=== PATIENT | female | born 1940 | race Caucasian/White ===

== ENCOUNTER 2021-10-01 18:54 | Emergency (ER) | payer SELFPAY ==
[2021-10-01 19:05] VITALS: BP 111/76; PULSE 88; RESP 20; TEMP 36.7; O2SAT 97
--- NOTE | 2021-10-01 19:23 | ED.WOUNDLAC ---
HPI - Wound/Laceration General Chief Complaint: Wound/Laceration Stated Complaint: R hand injury Time Seen by Provider: 10/01/21 19:20 Source: patient, family and RN notes reviewed History of Present Illness HPI narrative: Patient is an 80-year-old female who presents the urgent care with her son with complaints of a laceration to the right hand. Patient's son states that she lives at [facility] due to a stroke in the past and is weak on the right side. Patient tripped and fell in the shower yesterday while being assisted with her caregiver and lacerated the top of her right hand. Patient states she did hit the right side of her head and they evaluated her every 15 minutes with vitals and she was not taken to the emergency room. Son and patient both deny any changes in mental status. Patient denies of any loss of consciousness. Patient is on blood thinners. Patient son states that they have been wrapping the hand and every time they rewrap it it continues to bleed. No other acute complaints or injuries. No acute distress noted. Patient and son aware of the plan of care. Some parts of this dictation were generated by voice recognition software and may contain typographical and/or grammatical inaccuracies. Related Data Home Medications Medication Instructions Recorded Confirmed acetaminophen 325 mg PO ONCE PRN 10/01/21 10/01/21 aspirin [Adult Aspirin EC Low 81 mg PO DAILY 10/01/21 10/01/21 Strength] atorvastatin 10/01/21 atorvastatin 10/01/21 10/01/21 baclofen 10 mg PO QID 10/01/21 10/01/21 cholecalciferol (vitamin D3) 50 mcg PO DAILY 10/01/21 10/01/21 [Vitamin D3] clopidogrel 10/01/21 duloxetine 20 mg PO BID 10/01/21 10/01/21 lisinopril 10 mg PO DAILY 10/01/21 10/01/21 mirtazapine 15 mg PO DAILY 10/01/21 10/01/21 hcjapdje-blh-lcuu-FA-lutein 1 tablet PO DAILY 10/01/21 10/01/21 [Centrum Silver Women] oxybutynin chloride 5 mg PO BID 10/01/21 10/01/21 polyethylene glycol 3350 10/01/21 sodium chloride 1,000 mg PO DAILY 10/01/21 10/01/21 tramadol 50 mg PO Q6H PRN 10/01/21 10/01/21 Allergies Allergy/AdvReac Type Severity Reaction Status Date / Time codeine Allergy Other Verified 10/01/21 19:06 Sulfa (Sulfonamide Allergy Other Verified 10/01/21 19:06 Antibiotics) Review of Systems Review of Systems: CONSTITUTIONAL: Denies fever, chills, or sweats. EYES: Denies visual changes, redness, or discharge. ENT: Denies rhinorrhea, congestion, sore throat, or otalgia. CARDIOVASCULAR: Denies chest pain, palpitations, or edema. RESPIRATORY: Denies cough or dyspnea. GASTROINTESTINAL: Denies abdominal pain, nausea, vomiting, or diarrhea. GENITOURINARY: Denies dysuria or hematuria. SKIN: Reports of a right hand laceration MUSCULOSKELETAL: Denies back pain, joint pain, or myalgia. NEUROLOGIC: Denies headache, numbness, or weakness. All other systems reviewed are negative, except as documented in HPI. PMFSH Comments At the time of my signature, I reviewed and agree with the nursing past medical, surgical, social, and family history. There is no relevant family history pertinent to the patient complaint. Exam Narrative: GENERAL: This is a well-nourished, well-developed patient, in no apparent distress. HEAD: normocephalic, atraumatic. EYES: PERRL. Sclera clear/white. Vision is grossly intact. EARS: External ears normal NOSE: External nose normal with no obvious nasal discharge, nares without redness, no rhinorrhea. THROAT: Mucous membranes moist NECK: Neck supple, SKIN: 4 cm linear superficial skin tear to the dorsal aspect of the right hand with mild bloody drainage NEURO: awake, alert, and oriented to person, place and time. There were no obvious focal neurologic abnormalities. EXTREMITIES: Very limited range of motion to right upper extremity due to history of stroke. Contracted right hand. Positive strong right radial pulse. Course Course Level of Care: Express Care Visit Vital Signs Vital signs: Vit
== END 2021-10-01 19:33 | disposition home or self-care (01) ==
PROVIDERS: Emergency Provider Nurse Practitioner Family
DX: S61.411A Laceration without foreign body of right hand, initial encounter (principal); W01.0XXA Fall on same level from slipping, tripping and stumbling without subsequent striking against object, initial encounter; E78.00 Pure hypercholesterolemia, unspecified; I10 Essential (primary) hypertension; M19.90 Unspecified osteoarthritis, unspecified site; M41.9 Scoliosis, unspecified; F32.A Depression, unspecified; I69.320 Aphasia following cerebral infarction; I69.390 Apraxia following cerebral infarction; I69.391 Dysphagia following cerebral infarction; I69.351 Hemiplegia and hemiparesis following cerebral infarction affecting right dominant side; R13.10 Dysphagia, unspecified
CPT/HCPCS: 99212; G0463

== ENCOUNTER 2022-11-26 06:29 | Inpatient (IN) | payer MEDICARE, SELFPAY ==
[2022-11-26] VITALS (44 sets, daily range): BP systolic 64–147; BP diastolic 34–95; PULSE 64–116; RESP 13–28; TEMP 33.9–37.9; O2SAT 83–100; BMI 23.8
--- NOTE | ~2022-11-26 | XR_ITS ---
XR abdomen NG/feed tube insert 11/26/2022 15:32 Indication: NG tube insertion Procedure: Limited AP chest/abdomen Comparison: 11/26/2022 Findings: NG tube is coiled in the large hiatal hernia above the diaphragm. Bowel gas pattern nonobst ructive. Lungs clear. Impression: 1: NG tube coiled in large hiatal hernia above the diaphragm. Reviewed, dictated and finalized at location [] Impression: 1: NG tube coiled in large hiatal hernia above the diaphragm.
--- NOTE | ~2022-11-26 | XR_ITS ---
XR abdomen NG/feed tube insert INDICATION: Evaluate NG tube position. TECHNIQUE: Limited KUB perform for evaluating NG tube . COMPARISON: No prior studies for comparison. FINDINGS: NG tube tip in the stomach. Large hiatal hernia. Visualized bowel gas pattern is unremarkab le.There is severe spondylosis visualized thoracic and lumbar spine. IMPRESSION: 1: NG tube tip in the stomach. Reviewed, dictated and finalized at location []
--- NOTE | ~2022-11-26 | CT_ITS ---
EXAMINATION: CT abdomen pelvis w con DATE: 11/26/2022 08:34 INDICATION: Rectal bleeding TECHNIQUE: Computed tomography (CT) of the abdomen and pelvis was performed with 100 cc Omnipaque 350 intravenous contrast. The dose-length product was 554.88 mGy-cm. Automated exposure control and iter ative reconstruction technique were employed. COMPARISON: None. FINDINGS: There is dependent atelectasis. Cardiomegaly. Large hiatal hernia. NG tube in the stomach. There is atherosclerosis of the aorta without aneurysm. There is a rectal catheter. There is abnormal thickening of the sigmoid colon. No obstruction. Fatty infiltration of the liver. Gallbladder is present. The spleen, pancreas, adrenal glands are unr emarkable. There are bilateral renal cysts, largest on the right measuring 4.6 cm. Gallbladder is pre sent. No free air or free fluid. There is osteoarthritis of the hips, sacroiliac joints spine. There is scoliosis. There is atherosclerosis of the aorta without aneurysm. No lymphadenopathy. IMPRESSION: 1. Mild thickening of the sigmoid colon, suspicious for infectious or inflammatory colitis. 2: Large hiatal hernia. Reviewed, dictated and finalized at location [] IMPRESSION: 1. Mild thickening of the sigmoid colon, suspicious for infectious or inflammat ory colitis. 2: Large hiatal hernia.
--- NOTE | 2022-11-26 06:36 | ECG_ITS ---
Measurements Intervals [place] Rate: 104 P: 23 NM: 143 QRS: 140 QRSD: 121 T: -7 QT: 349 QTc: 461 Interpretive Statements SINUS TACHYCARDIA RIGHT AXIS DEVIATION [QRS AXIS > 100] RIGHT BUNDLE BRANCH BLOCK [120+ ms QRS DURATION, UPRIGHT V1, 40+ ms S IN I/aVL/V4/V5/V6] NO PREVIOUS ECG AVAILABLE FOR COMPARISON Electronically Signed On 11-26-2022 13:27:50 CDT by Abdi Cerda M.D.
[2022-11-26 07:00] LABS: Basophils Absolute Auto 0.1 K/mm3 (0.0-0.1); Basophils Percent Auto 0.7 % (0.2-1.2); Eosinophils Absolute Auto 0.3 K/mm3 (0-0.3); Eosinophils Percent Auto 2.4 % (0-4.4); Hematocrit 30.4 % (37.0-47.0); Immature Granulocyte Absolute 0.12 K/mm3 (0.00-0.031); Lymphocytes Absolute Auto 2.68 K/mm3 (0.9-3.2); Lymphocytes Percent Auto 23.2 % (18.3-44.2); Mean Corpuscular HGB Conc 32.9 g/dl (32-36); Mean Corpuscular Hemoglobin 30.9 pg (26-34); Mean Corpuscular Volume 93.8 fl (80-100); Mean Platelet Volume 9.3 fl (7.4-10.4); Monocytes Absolute Auto 0.8 K/mm3 (0.1-0.6); Neutrophils Absolute Auto 7.6 K/mm3 (1.3-6.7); Neutrophils Percent Auto 65.7 % (45.5-73.1); Platelet Count Result 274 k/mm3 (150-375); Red Blood Count 3.24 M/mm3 (4.2-5.4); Red Cell Distribution Width 13.4 % (11.5-14.5); White Blood Count 11.5 K/mm3 (4.5-10.0)
--- NOTE | 2022-11-26 07:08 | ED.GENADULT ---
HPI - General Adult General Chief complaint: Weakness Stated complaint: GI bleed Time Seen by Provider: 11/26/22 06:57 History of Present Illness HPI narrative: 82-year-old female presented to the emergency department for evaluation for dark red blood per rectum. Patient is on Plavix. Patient has no prior history of GI bleed. Patient does have a prior history of CVA with right-sided deficit and patient is aphasic at her baseline. Patient is able to answer yes and no to questions. Patient denies any prior history of GI bleed. Patient denies any prior history of alcohol abuse. Patient states that she does have some associate abdominal pain. Related Data Home Medications Medication Instructions Recorded Confirmed acetaminophen 325 mg tablet 650 mg PO ONCE PRN Pain 10/01/21 11/26/22 aspirin 81 mg tablet,delayed 81 mg PO DAILY 10/01/21 11/26/22 release atorvastatin 20 mg tablet 20 mg PO DAILY 10/01/21 11/26/22 clopidogrel 75 mg tablet 75 mg PO DAILY 10/01/21 11/26/22 duloxetine 20 mg capsule,delayed 20 mg PO BID 10/01/21 11/26/22 release lisinopril 10 mg tablet 10 mg PO DAILY 10/01/21 11/26/22 mirtazapine 15 mg tablet 15 mg PO DAILY 10/01/21 11/26/22 multivit with 1 tablet PO DAILY 10/01/21 11/26/22 qchmkdfv-xust-FL-lutein 8 mg iron-400 mcg-300 mcg tablet (Centrum Silver Women) oxybutynin chloride 5 mg tablet 5 mg PO BID 10/01/21 11/26/22 sodium chloride 1 gram tablet 1,000 mg PO BID 10/01/21 11/26/22 cholecalciferol (vitamin D3) 50 50 mcg PO DAILY 11/26/22 11/26/22 mcg (2,000 unit) capsule epinephrine 0.3 mg/0.3 mL 0.3 mg IM ONCE 11/26/22 11/26/22 injection, auto-injector Allergies Allergy/AdvReac Type Severity Reaction Status Date / Time codeine Allergy Other Verified 11/26/22 07:35 Sulfa (Sulfonamide Allergy Other Verified 11/26/22 07:35 Antibiotics) Review of Systems Review of Systems: ROS unobtainable: Yes unobtainable due to medical condition PMFSH Past Medical History Medical History (Updated 11/26/22 @ 12:45 by Varun Pastrana MD) GI bleed History of CVA (cerebrovascular accident) HTN (hypertension) Hyperlipidemia Osteoarthritis Social History Social History Smoking status: Unknown if ever smoked Alcohol intake: unknown Substance use: never Substance use type: does not use Lack of Transportation: No Lack of Food: Never True Current Housing: I Have Housing Concerned About Future Housing: No Difficulty Paying Gas/Electric Bills: No Difficulty Paying for Meds: No Currently Unemployed: No Education: Don't Know Difficulty w/ Childcare or Family Care: No Spiritual care concerns: No Exam Narrative: APPEARANCE: Well appearing, no pain, no distress, well-nourished. HEAD: normocephalic, atraumatic. EYES: PERRLA/EOMI, conjunctivae clear. NOSE: Normal no drainage NECK: Supple. No adenopathy, no masses. RESPIRATORY: Airway patent, respirations nonlabored. Clear to auscultation bilaterally, no rales, rhonchi, wheezing. CARDIOVASCULAR: Regular rate and rhythm without murmurs rubs or gallops. ABDOMINAL: Soft, nontender, nondistended, normal bowel sounds Rectal: Dark red blood per rectum. MUSCULOSKELETAL: Moves all extremities. Strength/ROM intact, No edema, No calf tenderness. NEURO: Alert. Cranial nerves II through XII intact. Right-sided deficit, aphasic-at her baseline. SKIN: Warm, dry. Normal Color Course Course Emergency Course: 82-year-old female presented the ED for evaluation of rectal bleeding that started last night. Patient's hemoglobin is 10.0. No prior hemoglobin is on file. Due to the amount of bleeding and hypotension on scene patient was treated with 2 unit of packed red blood cells to start. Patient was also started on Protonix. Case was discussed with GI and a gastric lavage was ordered. Patient did have some blood in the NG tube. GI requested gastric lavage to continue up to clear the clot burden. Case was discussed
[2022-11-26 07:10] LABS: Alanine Aminotransferase 49 U/L (6-35); Albumin Level 3.3 g/dL (3.5-5.1); Alkaline Phosphatase 149 U/L (38-126); Anion Gap 9 mmol/L (8-16); Aspartate Amino Transferase 53 U/L (14-36); Bilirubin,Total 0.4 mg/dL (0.2-1.3); Blood Urea Nitrogen 49 mg/dL (7-17); Calcium 8.4 mg/dL (8.4-10.2); Carbon Dioxide 18 mmol/L (22-30); Chloride 109 mmol/L (98-107); Estimated CRCL calculation 38 ml/min; Estimated Glomerular Filt Rate 53; Glucose 185 mg/dL (65-110); Potassium 5.4 mmol/L (3.4-5.0); Sodium 136 mmol/L (137-145)
[2022-11-26] MEDS: SODIUM CHLORIDE 0.9% IV 1,000 ML 999 ML IV CONT (07:12)
[2022-11-26] MEDS: PANTOPRAZOLE SODIUM IV 40 MG VIAL IV PUSH (07:19)
[2022-11-26] MEDS: PANTOPRAZOLE SODIUM IV 80 MG in SODIUM CHLORIDE 0.9% IV 500 ML 50 MG IV CONT ×2 (07:30→17:29)
[2022-11-26 07:31] LABS: INR 1.2
[2022-11-26 07:32] LABS: Partial Thromboplastin Time 26.7 SECONDS (22.3-36.8)
[2022-11-26] MEDS: SODIUM CHLORIDE 0.9% IV 250 ML 30 ML IV CONT (08:00)
[2022-11-26 08:04] LABS: Iron 121 ug/dL (37-170)
[2022-11-26 08:14] LABS: Percent Iron Saturation 40 % (20-50)
--- NOTE | 2022-11-26 08:34 | PC.NURSE ---
return from ct. 1st unit of blood issued. icu bed received.
--- NOTE | 2022-11-26 09:53 | ADMGEN ---
This patient, Dana Francois, was admitted to Intensive Care Unit-5 at 0940. Patient/family oriented to hospital policies and general routines including ID bracelet, bed and alarms, visiting hours, pain management, procedures, bathroom and other care routines, personal items, smoking policy, room service/diet, and visiting hours. Information on how to activate the Rapid Response Team has been discussed. Patient/Family are encouraged to report perceived risks to care and to ask questions if they do not understand what they are told or what they should do.
--- NOTE | 2022-11-26 12:21 | WPDGICN ---
Assessment and Plan Assessment and plan (1) GI bleed: Code(s): K92.2 - Gastrointestinal hemorrhage, unspecified Status: Acute Assessment and Plan: Patient admitted to the hospital with upper GI bleeding. Manifested by dark reddish stools confirmed by NG tube lavage. Plan for cleansing of the stomach by NG tube lavage. An EGD will be performed when stable. Hemoglobin will be monitored and transfused if necessary. Place will be patient will be placed on intravenous Protonix. Further recommendations will be given after endoscopy. (2) History of CVA (cerebrovascular accident): Code(s): Z86.73 - Personal history of transient ischemic attack (TIA), and cerebral infarction without residual deficits Status: Acute Assessment and Plan: Hold anticoagulation given her GI blood loss. GI Consult Note Consult date/time: 11/26/22 12:21 Reason for consult: Upper GI bleed HPI: Dana Francois is a 82 year old female I am asked to see at the request of the emergency room because of GI bleeding. Patient currently resident of [facility]. Patient has a history of a CVA. Patient is aphasic. She has right-sided weakness from her CVA. Apparently in her normal health began to pass dark red stool today. She present to the emergency room was noted to have a soft blood pressure. NG tube placed in the ER revealed that she had a bloody return. Patient's hemoglobin was 10 when evaluated. Her blood pressure is improved with IV fluid rehydration and blood transfusion. No prior history of GI bleeding is available are known. NG tube lavage has turned brownish coffee-ground in nature over the last several hours. Family history noncontributory. Review of Systems Review of Systems: Review of systems noncontributory. [facility] Social History Social History Smoking status: Unknown if ever smoked Alcohol intake: unknown Substance use: never Substance use type: does not use Lack of Transportation: No Lack of Food: Never True Current Housing: I Have Housing Concerned About Future Housing: No Difficulty Paying Gas/Electric Bills: No Difficulty Paying for Meds: No Currently Unemployed: No Education: Don't Know Difficulty w/ Childcare or Family Care: No Spiritual care concerns: No Meds Home Medications and Allergies Home Medications Medication Instructions Recorded Confirmed Type acetaminophen 325 mg tablet 650 mg PO ONCE PRN Pain 10/01/21 11/26/22 History aspirin 81 mg tablet,delayed 81 mg PO DAILY 10/01/21 11/26/22 History release atorvastatin 20 mg tablet 20 mg PO DAILY 10/01/21 11/26/22 History clopidogrel 75 mg tablet 75 mg PO DAILY 10/01/21 11/26/22 History duloxetine 20 mg capsule,delayed 20 mg PO BID 10/01/21 11/26/22 History release lisinopril 10 mg tablet 10 mg PO DAILY 10/01/21 11/26/22 History mirtazapine 15 mg tablet 15 mg PO DAILY 10/01/21 11/26/22 History multivit with 1 tablet PO DAILY 10/01/21 11/26/22 History etunyzlh-uiwz-ZN-lutein 8 mg iron-400 mcg-300 mcg tablet (Centrum Silver Women) oxybutynin chloride 5 mg tablet 5 mg PO BID 10/01/21 11/26/22 History sodium chloride 1 gram tablet 1,000 mg PO BID 10/01/21 11/26/22 History cholecalciferol (vitamin D3) 50 50 mcg PO DAILY 11/26/22 11/26/22 History mcg (2,000 unit) capsule epinephrine 0.3 mg/0.3 mL 0.3 mg IM ONCE 11/26/22 11/26/22 History injection, auto-injector Allergies Allergy/AdvReac Type Severity Reaction Status Date / Time codeine Allergy Other Verified 11/26/22 07:35 Sulfa (Sulfonamide Allergy Other Verified 11/26/22 07:35 Antibiotics) Vital Signs Vital Signs - 24 hr 11/26/22 06:29 11/26/22 07:16 11/26/22 06:40 Temperature 97.7 F Pulse Rate 110 H 94 111 H Respiratory Rate 24 H 27 H Blood Pressure 106/82 Pulse Oximetry 100 Oxygen Delivery Room Air 11/26/22 06:45 11/26/22 07:00 11/26/22 07:12 Temperature Pulse Rate 97 87
--- NOTE | 2022-11-26 12:30 | PM.IMHP ---
H&P: HPI History of Present Illness Date/Time: 11/26/22 12:30 Chief Complaint: Weakness Narrative: This is an 82-year-old female patient who resides at [facility]. The patient came to the emergency room to be evaluated for dark red blood from the rectum. The patient is on Plavix and she has had a CVA. She has had no prior history of having a GI bleed. The patient has a history of CVA with right side effect. Patient has expressive aphasia but can answer questions recheck her her head yes or no. The patient had an NG-tube placed in the emergency room and a lavage was started. GI was consulted. The patient was given a blood transfusion in the emergency room. White count was 11.5. HGB is 10.0 in 30.4. Potassium 5.4 sodium 136 BUN 49. Glucose 185. A sees 53 ALT is 49 alkaline phosphatase 149. Abdominal pelvis CT was read as the followingMild thickening of the sigmoid colon, suspicious for infectious or inflammatory colitis. 2:? Large hiatal hernia. Protonix drip was started. She was given IV fluids. An EGD was performed. No active bleeding was found. The patient is being admitted to inpatient status on the date of service of 11/26/2022. Review of Systems Review of Systems: All systems reviewed & are unremarkable except as noted in HPI and below Constitutional: Constitutional: Reports as per HPI and Reports no additional constitutional complaints Eyes: Eyes: Reports as per HPI and Reports no additional eye complaints ENT: Reports system reviewed and no additional complaints, except as documented and Reports Normal hearing present Cardiovascular: Cardiovascular: Reports no additional cardiovascular complaints Respiratory: Respiratory: Reports no additional respiratory complaints and Reports no additional respiratory complaints Gastrointestinal: Gastrointestinal: Reports as per HPI and Reports no additional gastrointestinal complaints Musculoskeletal: Musculoskeletal: Reports no additional musculoskeletal complaints Integumentary/Breasts: Skin/Breast: Reports system reviewed and no additional complaints, except as docu and Reports as per HPI Neurologic: Reports system reviewed and no additional complaints, except as documented, Reports as per HPI and Reports Normal hearing present Psychiatric: Psychiatric: Reports no additional psychiatric complaints and Reports as per HPI Endocrine: Endocrine: Reports no additional endocrine complaints Hematologic/Lymphatic: Hematologic/Lymphatic: Reports no additional hematologic/lymphatic complaints Allergic/Immunologic: Allergic/Immunologic: Reports no additional allergic/immunologic complaints [facility] Past Medical History Medical History (Updated 11/26/22 @ 15:10 by Olivia Barnes NP) Carotid artery disease Chronic anemia Depression Expressive aphasia GI bleed History of CVA (cerebrovascular accident) Right side effect HTN (hypertension) Hyperlipidemia Osteoarthritis Surgical History Surgical History (Updated 11/26/22 @ 15:10 by Olivia Barnes NP) H/O cataract extraction H/O: hysterectomy Family History Family History (Updated 11/26/22 @ 15:11 by Olivia Barnes NP) Unknown No problems noted. Social History Social History (Updated 11/26/22 @ 15:12 by Olivia Barnes NP) Social History: The patient is she resides at [facility]. She has 2 children. 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 Her son otilio is her durable power comptometrist for healthcare. Code status DNR Smoking status: Unknown if ever smoked Alcohol intake: unknown Substance use: never Substance use type: does not use Lack of Transportation: No Lack of Food: Never True Current Housing: I Have Housing Concerned About Future Housing: No Difficulty Paying Gas/Electric Bills: No Difficulty Paying for Meds: No Currently Unemployed: No Education: Don't Know Difficulty w/ Childcare or Family Care: No Spiritual care concerns:
--- NOTE | 2022-11-26 12:41 | WPDANESEPPF ---
Anes - Initial Pre Proc Eval Procedure: Operation Date: 11/26/22 15:00 Proposed Procedures p Esophagogastroduodenoscopy - Sourav Phillips MD Date/Time: 11/26/22 12:41 Surgeon: Rebecca Fay DO Pre Op Diagnosis: GI Bleed/Hyperkalemia Patient Data Age: 82 Gender: F Height: 1.73 m Weight: 71.1 kg Last Vital Signs Temp 36.2 C L 11/26/22 12:00 Pulse 96 11/26/22 12:00 Resp 15 11/26/22 12:00 BP 134/66 11/26/22 12:00 Pulse Ox 99 11/26/22 12:00 O2 Del Method Room Air 11/26/22 06:29 Allergies Allergy/AdvReac Type Severity Reaction Status Date / Time codeine Allergy Other Verified 11/26/22 07:35 Sulfa (Sulfonamide Allergy Other Verified 11/26/22 07:35 Antibiotics) Home Medications Medication Instructions Recorded Confirmed Type acetaminophen 325 mg tablet 650 mg PO ONCE PRN Pain 10/01/21 11/26/22 History aspirin 81 mg tablet,delayed 81 mg PO DAILY 10/01/21 11/26/22 History release atorvastatin 20 mg tablet 20 mg PO DAILY 10/01/21 11/26/22 History clopidogrel 75 mg tablet 75 mg PO DAILY 10/01/21 11/26/22 History duloxetine 20 mg capsule,delayed 20 mg PO BID 10/01/21 11/26/22 History release lisinopril 10 mg tablet 10 mg PO DAILY 10/01/21 11/26/22 History mirtazapine 15 mg tablet 15 mg PO DAILY 10/01/21 11/26/22 History multivit with 1 tablet PO DAILY 10/01/21 11/26/22 History gpxnuede-tgxw-YI-lutein 8 mg iron-400 mcg-300 mcg tablet (Centrum Silver Women) oxybutynin chloride 5 mg tablet 5 mg PO BID 10/01/21 11/26/22 History sodium chloride 1 gram tablet 1,000 mg PO BID 10/01/21 11/26/22 History cholecalciferol (vitamin D3) 50 50 mcg PO DAILY 11/26/22 11/26/22 History mcg (2,000 unit) capsule epinephrine 0.3 mg/0.3 mL 0.3 mg IM ONCE 11/26/22 11/26/22 History injection, auto-injector Laboratory Tests 11/26/22 11/26/22 11/26/22 06:50 06:51 06:52 WBC 11.5 H K/mm3 (4.5-10.0) RBC 3.24 L M/mm3 (4.2-5.4) Hgb 10.0 L g/dL (12.0-15.0) Hct 30.4 L % (37.0-47.0) MCV 93.8 fl (80-100) MCH 30.9 pg (26-34) MCHC 32.9 g/dl (32-36) RDW 13.4 % (11.5-14.5) Plt Count 274 k/mm3 (150-375) MPV 9.3 fl (7.4-10.4) Immature Gran % (Auto) 1.0 H % (0-0.5) Neut % (Auto) 65.7 % (45.5-73.1) Lymph % (Auto) 23.2 % (18.3-44.2) Pratt % (Auto) 7.0 % (2.6-8.5) Eos % (Auto) 2.4 % (0-4.4) Baso % (Auto) 0.7 % (0.2-1.2) Lymph # (Auto) 2.68 K/mm3 (0.9-3.2) Pratt # (Auto) 0.8 H K/mm3 (0.1-0.6) Eos # (Auto) 0.3 K/mm3 (0-0.3) Baso # (Auto) 0.1 K/mm3 (0.0-0.1) Abs Immat Gran (auto) 0.12 H K/mm3 (0.00-0.031) Absolute Neuts (auto) 7.6 H K/mm3 (1.3-6.7) Absolute Nucleated RBC 0.0 K/mm3 (0.0-0.012) Nucleated RBC % 0.0 % (0.0-0.2) PT 16.0 H Seconds (11.1-14.7) INR 1.2 APTT 26.7 SECONDS (22.3-36.8) Sodium 136 L mmol/L (137-145) Potassium 5.4 H mmol/L (3.4-5.0) Chloride 109 H mmol/L (98-107) Carbon Dioxide 18 L mmol/L (22-30) Anion Gap 9 mmol/L (8-16) BUN 49 H mg/dL (7-17) Creatinine 1.00 mg/dL (0.7-1.0) Estim Creat Clear Calc 38 ml/min Estimated GFR 53 L (59 - ) Glucose 185 H mg/dL (65-110) Calcium 8.4 mg/dL (8.4-10.2) Iron 121 ug/dL (37-170) TIBC 302 ug/dL (261-462) % Saturation 40 % (20-50) Ferritin Pending Total Bilirubin 0.4 mg/dL (0.2-1.3) AST 53 H U/L (14-36) ALT 49 H U/L (6-35) Alkaline Phosphatase 149 H U/L (38-126) Total Protein 6.0 L g/dL (6.3-8.2) Albumin 3.3 L g/dL (3.5-5.1) Blood Type O Positive Antibody Kevin
[2022-11-26] MEDS: LACTATED RINGERS 1,000 ML 150 ML IV CONT (13:25)
[2022-11-26] MEDS: SIMETHICONE ORAL SUSPENSION 20 MG/0.3 ML 30 ML BOTTLE PO (14:46)
--- NOTE | 2022-11-26 14:54 | SUR.OPER ---
NG REMOVED AT BEGINNING OF PROCEDURE, 18 [place] INSERTED POST PROCEDURE.
[2022-11-26] MEDS: SODIUM CHLORIDE 0.9% IV 1,000 ML 100 ML IV CONT (15:46)
[2022-11-26] MEDS: metroNIDAZOLE 500 MG/ISO 100ML 500 MG/100 ML BAG 100 MG IVPB (15:50)
[2022-11-26 16:19] LABS: Hematocrit 36.7 % (37.0-47.0); Hemoglobin 12.5 g/dL (12.0-15.0)
[2022-11-26 16:29] LABS: Anion Gap 8 mmol/L (8-16); Blood Urea Nitrogen 43 mg/dL (7-17); Calcium 7.8 mg/dL (8.4-10.2); Carbon Dioxide 17 mmol/L (22-30); Chloride 110 mmol/L (98-107); Estimated CRCL calculation 53 ml/min; Estimated Glomerular Filt Rate > 60; Glucose 110 mg/dL (65-110); Potassium 5.1 mmol/L (3.4-5.0); Sodium 135 mmol/L (137-145)
[2022-11-26] MEDS: fentaNYL CITRATE INJ (*CRX) 100 MCG/2 ML VIAL 25 MCG IV PUSH (20:13)
--- NOTE | 2022-11-26 20:54 | PC.NURSE ---
Son contacted to inform him of patient room change.
[2022-11-26 20:58] LABS: Anion Gap 3 mmol/L (8-16); Blood Urea Nitrogen 37 mg/dL (7-17); Calcium 7.9 mg/dL (8.4-10.2); Carbon Dioxide 20 mmol/L (22-30); Chloride 114 mmol/L (98-107); Estimated CRCL calculation 53 ml/min; Estimated Glomerular Filt Rate > 60; Glucose 119 mg/dL (65-110); Potassium 4.8 mmol/L (3.4-5.0); Sodium 137 mmol/L (137-145)
--- NOTE | 2022-11-26 21:50 | PC.NURSE ---
Patient transferred from ICU 6 to 206-2 @ 2049
--- NOTE | 2022-11-26 22:17 | PC.NURSE ---
This patient, Dana Francois, was received from [ICU-5] on 11/26/22 at 2045. Patient/family oriented to unit policies and routines
[2022-11-27] VITALS (12 sets, daily range): BP systolic 119–138; BP diastolic 49–65; PULSE 102–109; RESP 20–22; TEMP 36.3–37.6; O2SAT 95–100
[2022-11-27] MEDS: metroNIDAZOLE 500 MG/ISO 100ML 500 MG/100 ML BAG 100 MG IVPB ×3 (00:03→16:19)
[2022-11-27] MEDS: SODIUM CHLORIDE 0.9% IV 1,000 ML 100 ML IV CONT ×2 (03:14→16:19)
[2022-11-27 04:06] LABS: Hematocrit 32.1 % (37.0-47.0); Hemoglobin 10.7 g/dL (12.0-15.0)
[2022-11-27 04:18] LABS: Alanine Aminotransferase 37 U/L (6-35); Albumin Level 2.9 g/dL (3.5-5.1); Alkaline Phosphatase 121 U/L (38-126); Anion Gap 5 mmol/L (8-16); Aspartate Amino Transferase 41 U/L (14-36); Bilirubin,Total 0.5 mg/dL (0.2-1.3); Blood Urea Nitrogen 31 mg/dL (7-17); Calcium 7.7 mg/dL (8.4-10.2); Carbon Dioxide 21 mmol/L (22-30); Chloride 114 mmol/L (98-107); Estimated CRCL calculation 61 ml/min; Estimated Glomerular Filt Rate > 60; Glucose 121 mg/dL (65-110); Lactate Dehydrogenase 165 U/L (120-246); Magnesium 1.9 mg/dL (1.6-2.3); Potassium 4.2 mmol/L (3.4-5.0); Sodium 140 mmol/L (137-145)
[2022-11-27] MEDS: PANTOPRAZOLE SODIUM IV 80 MG in SODIUM CHLORIDE 0.9% IV 500 ML 50 MG IV CONT ×2 (06:00→16:52)
[2022-11-27] MEDS: fentaNYL CITRATE INJ (*CRX) 100 MCG/2 ML VIAL 25 MCG IV PUSH ×2 (06:14→09:32)
--- NOTE | 2022-11-27 09:33 | WPDGIPROGNO ---
Progress Note: A&P Assessment and Plan (1) UGI bleed: Code(s): K92.2 - Gastrointestinal hemorrhage, unspecified Status: Acute Assessment and Plan: Patient with upper GI bleeding manifested by NG tube return and blood in her stools. Hemoglobin has declined to 10.7 but stable. Plan to transfuse only if hemoglobin drops precipitously. Will advance diet. Continue patient on intravenous Protonix. Follow-up EGD anticipated early next week. EGD yesterday revealed limited visualization because of blood in the stomach. 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 No distinct lesions evident. Suspect ulcer disease. Avoid NSAIDs. Continue PPI (2) History of CVA (cerebrovascular accident): Code(s): Z86.73 - Personal history of transient ischemic attack (TIA), and cerebral infarction without residual deficits Status: Acute (3) Expressive aphasia: Code(s): R47.01 - Aphasia Status: Acute Subjective Date/time seen: 11/27/22 09:33 Interval history: Patient alert this morning. She remains aphasic. NG tube has remain clear with only residual coffee-grounds noted. No active bleeding noted. Patient denies abdominal pain. Review of Systems Review of Systems: Review of systems noncontributory. Exam Narrative: Physical exam reveals patient to be alert. Vital signs stable. HEENT exam is unremarkable. Patient is anicteric. Lungs are clear. Heart without murmur. Abdomen is soft nontender with no organomegaly. Objective Data Vital Signs Vital Signs: Vital Signs - 24 hr 11/26/22 10:00 11/26/22 10:00 11/26/22 09:50 Temperature 95.1 F L 95.0 F L Pulse Rate 88 87 86 Respiratory Rate 14 14 Blood Pressure 114/58 L 112/64 Pulse Oximetry 96 98 Oxygen Delivery Oxygen Flow Rate 11/26/22 09:45 11/26/22 10:13 11/26/22 10:28 Temperature 95.5 F L 95.8 F L Pulse Rate 86 89 90 Respiratory Rate 14 13 16 Blood Pressure 112/64 114/58 L 115/65 Pulse Oximetry 98 96 100 Oxygen Delivery Oxygen Flow Rate 11/26/22 11:28 11/26/22 12:00 11/26/22 12:00 Temperature 96.4 F L 97.1 F L Pulse Rate 95 64 96 Respiratory Rate 15 15 Blood Pressure 130/73 134/66 Pulse Oximetry 98 99 Oxygen Delivery Oxygen Flow Rate 11/26/22 12:28 11/26/22 13:19 11/26/22 15:01 Temperature 97.6 F 97.4 F L Pulse Rate 97 99 116 H Respiratory Rate 16 16 25 H Blood Pressure 133/74 141/70 H 136/76 Pulse Oximetry 93 100 100 Oxygen Delivery Room Air Nasal Cannula Oxygen Flow Rate 2 11/26/22 15:11 11/26/22 15:21 11/26/22 16:00 Temperature Pulse Rate 112 H 111 H 103 H Respiratory Rate 25 H 21 H 14 Blood Pressure 128/74 147/75 H Pulse Oximetry 97 100 98 Oxygen Delivery Room Air Room Air Room Air Oxygen Flow Rate 11/26/22 16:00 11/26/22 16:00 11/26/22 17:05 Temperature 99.8 F H Pulse Rate 104 H 107 H 109 H Respiratory Rate 21 H Blood Pressure 132/68 Pulse Oximetry 97 Oxygen Delivery Oxygen Flow Rate 11/26/22 20:00 11/26/22 20:00 11/26/22 22:00 Temperature 100.3 F H 97.9 F Pulse Rate 111 H 106 H Respiratory Rate 15 20 Blood Pressure 129/74 128/57 L Pulse Oximetry 92 98 95 Oxygen Delivery Room Air Oxygen Flow Rate 11/26/22 22:00 11/26/22 23:37 11/27/22 00:00 Temperature 99.7 F H Pulse Rate 109 H 105 H 103 H Respiratory Rate 20 Blood Pressure 115/52 L Pulse Oximetry 96 Oxygen Delivery Oxygen Flow Rate 11/27/22 00:00 11/27/22 02:00 11/27/22 03:49 Temperature 99.6 F Pulse Rate 102 H 106 H Respiratory Rate 20 Blood Pressure 119/49 L Pulse Oximetry 96 96 Oxygen Delivery Room Air Oxygen Flow Rate 11/27/22 04:00 11/27/22 06:00 11/27/22 04:00 Temperature Pulse Rate 109 H 109 H Respiratory Rate Blood Pressure Pulse Oximetry 95 Oxygen Delivery Room Air Oxygen Flow Rate 11/27/22 08:00 Temperature 97.5 F L Pulse Rate 109 H Respi
--- NOTE | 2022-11-27 09:56 | PM.IMPN ---
Progress Note: A&P Assessment and Plan (1) GI bleed: Code(s): K92.2 - Gastrointestinal hemorrhage, unspecified Status: Acute Assessment and Plan: The patient did receive a blood transfusion. EGD report reviewed. Transfuse as needed. Ppi (2) Hyperlipidemia: Code(s): E78.5 - Hyperlipidemia, unspecified Status: Acute Assessment and Plan: Hold atorvastatin at this time as the patient is NPO. (3) HTN (hypertension): Code(s): I10 - Essential (primary) hypertension Status: Acute Assessment and Plan: P.r.n. hydralazine is patient is NPO. Her lisinopril is currently on hold. (4) History of CVA (cerebrovascular accident): Code(s): Z86.73 - Personal history of transient ischemic attack (TIA), and cerebral infarction without residual deficits Status: Acute Assessment and Plan: The patient had been on aspirin and Plavix (5) Acute hyperkalemia: Code(s): E87.5 - Hyperkalemia Status: Acute Assessment and Plan: Recheck BMP now. (6) Depression: Code(s): F32.A - Depression, unspecified Status: Acute Assessment and Plan: Patient is NPO at this time. Continue duloxetine when patient is able to eat Subjective Date/time seen: 11/27/22 09:56 Interval history: No complaints Exam Const: General: cooperative, healthy appearing, comfortable, no acute distress, well developed, alert, awake, Physically active, average body habitus and well nourished Nutritional Appearance: average body habitus and well nourished Orientation/consciousness: oriented to person, oriented to place, oriented to time and patient oriented x3 Limitations: no limitations Other: The patient has expressive aphasia. She is able to answer by shaking her head yes and no. HENMT: Head: normal to inspection, No palpable skull fracture present, normocephalic and atraumatic Ears: hearing grossly normal bilaterally and external ears normal Face/Nose/Sinus: Normal external nose present and Normal nares present Other: NG tube and right near Eyes: General: appearance normal, both eyes and all related structures Alignment and Position: alignment normal Periorbital: periorbital findings normal Eyelids: eyelids normal Sclera: sclerae normal Pupils: Equal, round and reactive pupils present EOM: EOMs intact bilaterally Neck: Neck: normal visual inspection, full ROM, no lymphadenopathy, trachea midline and supple Chest: Chest palpation & inspection: normal inspection of the chest Resp: Effort & Inspection: normal respiratory effort Auscultation: clear to auscultation bilaterally Cardio: Palpation: normal PMI Rate: tachycardic Rhythm: regular rhythm Heart sounds: S1 normal heart sound present and S2 normal heart sound present Peripheral pulses: Peripheral pulses 2+ throughout GI: Inspection: normal to inspection Auscultation: normal bowel sounds Rectal Exam: deferred Other: Tenderness to lower abdomen Back/Spine/Pelvis: Cervical Spine: cervical ROM normal Skin: General skin exam: normal color Lesions: no lesions Rashes: no rashes Trauma: no lacerations or abrasions Wounds: no wounds Hair: normal Nails: normal Neuro: General: oriented to person, oriented to place, oriented to time and patient oriented x3 Cranial nerves: Yes Equal, round and reactive pupils present and Yes Normal hearing present Cognition (Neuro): normal cognition Speech: normal speech Gait exam (Neuro): Normal gait present Motor exam (neuro): 5/5 motor strength present throughout Sensory Exam: normal sensation Extrem: General: normal to inspection Right upper extremity: normal to inspection and shoulder/upper arm Left upper extremity: normal to inspection and shoulder/upper arm Right lower extremity: normal to inspection Left lower extremity: normal to inspection Psych: Appearance: grossly normal Mental Status: mental status grossly normal Affect: normal af
[2022-11-27 10:54] LABS: Hematocrit 32.6 % (37.0-47.0); Hemoglobin 10.8 g/dL (12.0-15.0)
--- NOTE | 2022-11-27 18:25 | PC.NURSE ---
This patient, Dana Francois, was received from IMU on 11/27/22 at 1100. Patient/family oriented to unit policies and routines
[2022-11-28] MEDS: metroNIDAZOLE 500 MG/ISO 100ML 500 MG/100 ML BAG 100 MG IVPB ×4 (00:04→23:40)
[2022-11-28 00:05] VITALS: TEMP 37.1
[2022-11-28] MEDS: SODIUM CHLORIDE 0.9% IV 1,000 ML 100 ML IV CONT ×2 (02:02→18:31)
[2022-11-28] MEDS: PANTOPRAZOLE SODIUM IV 80 MG in SODIUM CHLORIDE 0.9% IV 500 ML 50 MG IV CONT ×2 (02:52→14:56)
[2022-11-28 08:00] VITALS: PULSE 102; PULSE 77; RESP 20; O2SAT 99
[2022-11-28] MEDS: fentaNYL CITRATE INJ (*CRX) 100 MCG/2 ML VIAL 25 MCG IV PUSH (08:33)
--- NOTE | 2022-11-28 09:24 | WPDGIPROGNO ---
Progress Note: A&P Assessment and Plan (1) UGI bleed: Code(s): K92.2 - Gastrointestinal hemorrhage, unspecified Status: Acute Assessment and Plan: Patient with upper GI bleeding. Initial endoscopy revealed large amount of blood unable to find specific bleeding site. Currently bleeding is stopped. Anticoagulation on hold. Hemoglobin stable at 10.8. Plan follow-up EGD tomorrow. She will need to be NPO Tuesday morning. May allow more diet today. Continue proton pump inhibitor therapy. Void anticoagulation. (2) Expressive aphasia: Code(s): R47.01 - Aphasia Status: Acute (3) History of CVA (cerebrovascular accident): Code(s): Z86.73 - Personal history of transient ischemic attack (TIA), and cerebral infarction without residual deficits Status: Acute Subjective Date/time seen: 11/28/22 09:24 Interval history: Patient alert this morning comfortable at rest. Tolerating liquid diet. No additional bleeding noted. She denies abdominal pain. Remains aphasic unable to communicate today. Review of Systems Review of Systems: Review of systems noncontributory. Exam Narrative: Physical exam reveals Vital Signs to be stable. HEENT exam unremarkable. She is anicteric. Lungs are clear. Heart without murmur. Abdomen bowel sounds present soft nontender with no organomegaly. Objective Data Vital Signs Vital Signs: Vital Signs - 24 hr 11/27/22 12:00 11/27/22 17:22 11/27/22 16:00 Temperature 97.3 F L 98.2 F Pulse Rate 104 H 102 H Respiratory Rate 22 H 20 Blood Pressure 136/59 L 138/59 L Pulse Oximetry 99 99 100 Oxygen Delivery Room Air 11/27/22 11:26 11/27/22 19:48 11/28/22 00:05 Temperature 98.8 F Pulse Rate 102 H Respiratory Rate 20 Blood Pressure Pulse Oximetry 99 99 Oxygen Delivery Room Air Room Air 11/27/22 22:27 Temperature Pulse Rate Respiratory Rate Blood Pressure Pulse Oximetry 99 Oxygen Delivery Room Air Intake/Output Intake/Output: Intake & Output 11/25/22 11/26/22 11/27/22 11/28/22 23:59 23:59 23:59 23:59 Intake Total 2200 3470 2100 Output Total 1350 3200 450 Balance 781 930 7124 Meds/Results Medications: Active Medications Generic Name Dose Route Start Last Admin Trade Name Freq PRN Reason Stop Dose Admin Fentanyl Citrate 25 mcg 11/27/22 01:21 11/28/22 08:33 Fentanyl Citrate Inj (*Crx) 100 Mcg/2 Ml Vial IV PUSH 25 mcg Q4H PRN Administration Pain Rated 7-10 Hydralazine HCl 10 mg 11/26/22 15:24 Hydralazine Hcl 20 Mg/Ml Vial IV PUSH Q8H PRN Blood Pressure - High Sodium Chloride 1,000 mls @ 100 mls/hr 11/26/22 08:05 11/28/22 02:02 Normal Saline Iv IV CONT 100 mls/hr .Q10H MADDIE Administration Pantoprazole Sodium 80 mg/ 500 mls @ 50 mls/hr 11/26/22 17:00 11/28/22 02:52 Sodium Chloride IV CONT 50 mls/hr .Q10H MADDIE Administration Ceftriaxone Sodium 1 gm in 50 mls @ 100 mls/hr 11/26/22 22:00 11/27/22 22:49 Rocephin 1 Gm/Ns 50 Ml IVPB Infused Q24H MADDIE Infusion Metronidazole 500 mg in 100 mls @ 100 mls/hr 11/27/22 00:00 11/28/22 08:36 Flagyl 500 Mg/Iso Soln 100 Ml IVPB 100 mls/hr Q8H MADDIE Administration Simethicone 0.3 ml 11/26/22 14:45 11/26/22 14:46 Simethicone Oral Suspension 20 Mg/0.3 Ml 30 Ml Bottle PO 0.6 ml ONCE PRN Administration Gas Discomfort Radiology Results: ITS Impressions Abdomen/Pelvis CT 11/26/22 08:37 IMPRESSION: 1. Mild thickening of the sigmoid colon, suspicious for infectious or inflammatory colitis. 2: Large hiatal hernia. Abdomen X-Ray 11/26/22 15:52 Impression: 1: NG tube coiled in large hiatal hernia above the diaphragm. Labs Labs: Laboratory Results - last 24 hr 11/27/22 10:44 Hgb 10.8 L Hct 32.6 L Amg Follow-up Billing [facility] Follow-up Hospital Follow-up: [id number] [facility]
[2022-11-28 09:45] LABS: Basophils Percent Auto 0.2 % (0.2-1.2); Eosinophils Absolute Auto 0.3 K/mm3 (0-0.3); Eosinophils Percent Auto 3.9 % (0-4.4); Hematocrit 30.7 % (37.0-47.0); Hemoglobin 10.2 g/dL (12.0-15.0); Immature Granulocyte Absolute 0.06 K/mm3 (0.00-0.031); Immature Granulocyte Percent A 0.7 % (0-0.5); Lymphocytes Absolute Auto 0.36 K/mm3 (0.9-3.2); Lymphocytes Percent Auto 4.3 % (18.3-44.2); Mean Corpuscular HGB Conc 33.2 g/dl (32-36); Mean Corpuscular Hemoglobin 31.3 pg (26-34); Mean Corpuscular Volume 94.2 fl (80-100); Mean Platelet Volume 8.8 fl (7.4-10.4); Monocytes Absolute Auto 0.5 K/mm3 (0.1-0.6); Monocytes Percent Auto 5.5 % (2.6-8.5); Neutrophils Absolute Auto 7.2 K/mm3 (1.3-6.7); Neutrophils Percent Auto 85.4 % (45.5-73.1); Platelet Count Result 154 k/mm3 (150-375); Red Blood Count 3.26 M/mm3 (4.2-5.4); Red Cell Distribution Width 14.4 % (11.5-14.5); White Blood Count 8.4 K/mm3 (4.5-10.0)
--- NOTE | 2022-11-28 10:39 | PM.IMPN ---
Progress Note: A&P Assessment and Plan (1) GI bleed: Code(s): K92.2 - Gastrointestinal hemorrhage, unspecified Status: Acute Assessment and Plan: The patient did receive a blood transfusion. EGD report reviewed. Transfuse as needed. Ppi continue pain control for abdominal pain (2) Hyperlipidemia: Code(s): E78.5 - Hyperlipidemia, unspecified Status: Acute Assessment and Plan: Hold atorvastatin at this time as the patient is NPO. (3) HTN (hypertension): Code(s): I10 - Essential (primary) hypertension Status: Acute Assessment and Plan: P.r.n. hydralazine is patient is NPO. Her lisinopril is currently on hold. (4) History of CVA (cerebrovascular accident): Code(s): Z86.73 - Personal history of transient ischemic attack (TIA), and cerebral infarction without residual deficits Status: Acute Assessment and Plan: The patient had been on aspirin and Plavix (5) Acute hyperkalemia: Code(s): E87.5 - Hyperkalemia Status: Acute Assessment and Plan: Recheck BMP now. (6) Depression: Code(s): F32.A - Depression, unspecified Status: Acute Assessment and Plan: Patient is NPO at this time. Continue duloxetine when patient is able to eat Subjective Date/time seen: 11/28/22 10:39 Interval history: Complaining of mild abdominal pain. No chest pain Exam Const: General: cooperative, healthy appearing, comfortable, no acute distress, well developed, alert, awake, Physically active, average body habitus and well nourished Nutritional Appearance: average body habitus and well nourished Orientation/consciousness: oriented to person, oriented to place, oriented to time and patient oriented x3 Limitations: no limitations Other: The patient has expressive aphasia. She is able to answer by shaking her head yes and no. HENMT: Head: normal to inspection, No palpable skull fracture present, normocephalic and atraumatic Ears: hearing grossly normal bilaterally and external ears normal Face/Nose/Sinus: Normal external nose present and Normal nares present Other: NG tube and right near Eyes: General: appearance normal, both eyes and all related structures Alignment and Position: alignment normal Periorbital: periorbital findings normal Eyelids: eyelids normal Sclera: sclerae normal Pupils: Equal, round and reactive pupils present EOM: EOMs intact bilaterally Neck: Neck: normal visual inspection, full ROM, no lymphadenopathy, trachea midline and supple Chest: Chest palpation & inspection: normal inspection of the chest Resp: Effort & Inspection: normal respiratory effort Auscultation: clear to auscultation bilaterally Cardio: Palpation: normal PMI Rate: tachycardic Rhythm: regular rhythm Heart sounds: S1 normal heart sound present and S2 normal heart sound present Peripheral pulses: Peripheral pulses 2+ throughout GI: Inspection: normal to inspection Auscultation: normal bowel sounds Rectal Exam: deferred Other: Tenderness to lower abdomen Back/Spine/Pelvis: Cervical Spine: cervical ROM normal Skin: General skin exam: normal color Lesions: no lesions Rashes: no rashes Trauma: no lacerations or abrasions Wounds: no wounds Hair: normal Nails: normal Neuro: General: oriented to person, oriented to place, oriented to time and patient oriented x3 Cranial nerves: Yes Equal, round and reactive pupils present and Yes Normal hearing present Cognition (Neuro): normal cognition Speech: normal speech Gait exam (Neuro): Normal gait present Motor exam (neuro): 5/5 motor strength present throughout Sensory Exam: normal sensation Extrem: General: normal to inspection Right upper extremity: normal to inspection and shoulder/upper arm Left upper extremity: normal to inspection and shoulder/upper arm Right lower extremity: normal to inspection Left lower extremity: normal to inspection Psych: Appearance:
[2022-11-28] MEDS: HYDROcodone/acetaminophen (*CRX) 7.5-325 MG TABLET 1 TAB PO ×2 (13:16→22:05)
[2022-11-28 16:00] VITALS: BP 127/76; PULSE 104; RESP 18; TEMP 36.2; O2SAT 94
[2022-11-28 20:00] VITALS: PULSE 105; RESP 18; O2SAT 97
[2022-11-28 21:55] VITALS: BP 136/61; PULSE 105; RESP 18; TEMP 36.7; O2SAT 97
[2022-11-28] MEDS: ONDANSETRON INJ 4 MG/2 ML VIAL IV PUSH (21:55)
[2022-11-29] VITALS (7 sets, daily range): BP systolic 110–136; BP diastolic 60–78; PULSE 84–101; RESP 14–20; TEMP 36.3–36.6; O2SAT 96–99
[2022-11-29] MEDS: PANTOPRAZOLE SODIUM IV 80 MG in SODIUM CHLORIDE 0.9% IV 500 ML 50 MG IV CONT ×2 (10:14→10:50)
[2022-11-29] MEDS: SODIUM CHLORIDE 0.9% IV 1,000 ML 100 ML IV CONT ×2 (10:14→10:49)
[2022-11-29] MEDS: metroNIDAZOLE 500 MG/ISO 100ML 500 MG/100 ML BAG 100 MG IVPB ×2 (10:14→16:20)
--- NOTE | 2022-11-29 11:17 | P.PNIM_ITS ---
Progress Note: A&P Assessment and Plan (1) GI bleed: Code(s): K92.2 - Gastrointestinal hemorrhage, unspecified Status: Acute Assessment and Plan: The patient did receive a blood transfusion. EGD report reviewed. Transfuse as needed. Ppi continue pain control for abdominal pain (2) Hyperlipidemia: Code(s): E78.5 - Hyperlipidemia, unspecified Status: Acute Assessment and Plan: Hold atorvastatin at this time as the patient is NPO. (3) HTN (hypertension): Code(s): I10 - Essential (primary) hypertension Status: Acute Assessment and Plan: P.r.n. hydralazine is patient is NPO. Her lisinopril is currently on hold. (4) History of CVA (cerebrovascular accident): Code(s): Z86.73 - Personal history of transient ischemic attack (TIA), and cerebral infarction without residual deficits Status: Acute Assessment and Plan: The patient had been on aspirin and Plavix (5) Acute hyperkalemia: Code(s): E87.5 - Hyperkalemia Status: Acute Assessment and Plan: Recheck BMP now. (6) Depression: Code(s): F32.A - Depression, unspecified Status: Acute Assessment and Plan: Patient is NPO at this time. Continue duloxetine when patient is able to eat Subjective Date/time seen: 11/29/22 11:17 Interval history: Complaining of lower abdominal pain today. Likely from her Kim. Exam Const: General: cooperative, healthy appearing, comfortable, no acute distress, well developed, alert, awake, Physically active, average body habitus and well nourished Nutritional Appearance: average body habitus and well nourished Orientation/consciousness: oriented to person, oriented to place, oriented to time and patient oriented x3 Limitations: no limitations Other: The patient has expressive aphasia. She is able to answer by shaking her head yes and no. HENMT: Head: normal to inspection, No palpable skull fracture present, normocephalic and atraumatic Ears: hearing grossly normal bilaterally and external ears normal Face/Nose/Sinus: Normal external nose present and Normal nares present Other: NG tube and right near Eyes: General: appearance normal, both eyes and all related structures Alignment and Position: alignment normal Periorbital: periorbital findings normal Eyelids: eyelids normal Sclera: sclerae normal Pupils: Equal, round and reactive pupils present EOM: EOMs intact bilaterally Neck: Neck: normal visual inspection, full ROM, no lymphadenopathy, trachea midline and supple Chest: Chest palpation & inspection: normal inspection of the chest Resp: Effort & Inspection: normal respiratory effort Auscultation: clear to auscultation bilaterally Cardio: Palpation: normal PMI Rate: tachycardic Rhythm: regular rhythm Heart sounds: S1 normal heart sound present and S2 normal heart sound present Peripheral pulses: Peripheral pulses 2+ throughout GI: Inspection: normal to inspection Auscultation: normal bowel sounds Rectal Exam: deferred Other: Tenderness to lower abdomen Back/Spine/Pelvis: Cervical Spine: cervical ROM normal Skin: General skin exam: normal color Lesions: no lesions Rashes: no rashes Trauma: no lacerations or abrasions Wounds: no wounds Hair: normal Nails: normal Neuro: General: oriented to person, oriented to place, oriented to time and patient oriented x3 Cranial nerves: Yes Equal, round and reactive p
[2022-11-29] MEDS: LACTATED RINGERS 1,000 ML 150 ML IV CONT (13:27)
--- NOTE | 2022-11-29 14:12 | WPDANESEPPF ---
Anes - Initial Pre Proc Eval Procedure: Operation Date: 11/26/22 15:00 Proposed Procedures p Esophagogastroduodenoscopy - Sourav Phillips MD Operation Date: 11/29/22 14:15 Proposed Procedures p Esophagogastroduodenoscopy - Sourav Phillips MD Date/Time: 11/29/22 14:12 Surgeon: Rebecca Fay DO Pre Op Diagnosis: GI Bleed/Hyperkalemia Patient Data Age: 82 Gender: F Height: 1.73 m Weight: 68.2 kg Last Vital Signs Temp 98 F 11/29/22 13:22 Pulse 96 11/29/22 13:22 Resp 20 11/29/22 13:22 BP 135/68 11/29/22 13:22 Pulse Ox 99 11/29/22 13:22 O2 Del Method Room Air 11/29/22 13:22 O2 Flow Rate 2 11/26/22 15:01 Allergies Allergy/AdvReac Type Severity Reaction Status Date / Time codeine Allergy Other Verified 11/29/22 13:20 Sulfa (Sulfonamide Allergy Other Verified 11/29/22 13:20 Antibiotics) Home Medications Medication Instructions Recorded Confirmed Type acetaminophen 325 mg tablet 650 mg PO ONCE PRN Pain 10/01/21 11/26/22 History aspirin 81 mg tablet,delayed 81 mg PO DAILY 10/01/21 11/26/22 History release atorvastatin 20 mg tablet 20 mg PO DAILY 10/01/21 11/26/22 History clopidogrel 75 mg tablet 75 mg PO DAILY 10/01/21 11/26/22 History duloxetine 20 mg capsule,delayed 20 mg PO BID 10/01/21 11/26/22 History release lisinopril 10 mg tablet 10 mg PO DAILY 10/01/21 11/26/22 History mirtazapine 15 mg tablet 15 mg PO DAILY 10/01/21 11/26/22 History multivit with 1 tablet PO DAILY 10/01/21 11/26/22 History natbgwuy-fgco-[id number]-lutein 8 mg iron-400 mcg-300 mcg tablet (Centrum Silver Women) oxybutynin chloride 5 mg tablet 5 mg PO BID 10/01/21 11/26/22 History sodium chloride 1 gram tablet 1,000 mg PO BID 10/01/21 11/26/22 History cholecalciferol (vitamin D3) 50 50 mcg PO DAILY 11/26/22 11/26/22 History mcg (2,000 unit) capsule epinephrine 0.3 mg/0.3 mL 0.3 mg IM ONCE 11/26/22 11/26/22 History injection, auto-injector Patient hx anesthesia problems: none Family hx anesthesia problems: none Results Review: All pre-operative results and documents have been reviewed as part of the pre-operative evaluation. [facility] Past Medical History Medical History (Updated 11/27/22 @ 09:35 by Sourav Phillips MD) Carotid artery disease Chronic anemia Depression Expressive aphasia GI bleed History of CVA (cerebrovascular accident) Right side effect HTN (hypertension) Hyperlipidemia Osteoarthritis Surgical History Surgical History (Updated 11/26/22 @ 15:10 by Olivia Barnes NP) H/O cataract extraction H/O: hysterectomy Family History Family History (Updated 11/26/22 @ 15:11 by Olivia Barnes NP) Unknown No problems noted. Social History Social History (Updated 11/26/22 @ 15:12 by Olivia Barnes NP) Social History: The patient is she resides at [place]. She has 2 children. 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 Her son otilio is her durable power energy attorney for healthcare. Code status DNR Smoking status: Unknown if ever smoked Alcohol intake: unknown Substance use: never Substance use type: does not use Lack of Transportation: No Lack of Food: Never True Current Housing: I Have Housing Concerned About Future Housing: No Difficulty Paying Gas/Electric Bills: No Difficulty Paying for Meds: No Currently Unemployed: No Education: Don't Know Difficulty w/ Childcare or Family Care: No Spiritual care concerns: No Anes - Eval Final PreProcedure Day of Procedure 11/29/22 14:12 Patient weight: normal Heart: regular rate and rhythm Lungs: clear to auscultation Airway: Mallampati scale class III Neurological: alert and oriented Last oral intake: >/= 8 hours ASA classification: IV Emergent: no Anesthetic plan: proceed Anesthesia type and monitoring: general GIVS and standard monitoring Results Review: All pre-operative results and documents have been reviewed as part o
--- NOTE | 2022-11-29 14:39 | PCPTNOTE ---
Patient is off unit for a test. Will follow.
[2022-11-29] MEDS: PANTOPRAZOLE 40 MG TABLET PO (20:24)
[2022-11-29] MEDS: HYDROcodone/acetaminophen (*CRX) 7.5-325 MG TABLET 1 TAB PO (21:30)
[2022-11-30] MEDS: metroNIDAZOLE 500 MG/ISO 100ML 500 MG/100 ML BAG 100 MG IVPB ×2 (00:45→06:53)
[2022-11-30 00:46] VITALS: BP 140/68; PULSE 105; RESP 16; TEMP 36.9; O2SAT 95
[2022-11-30 06:13] VITALS: BP 125/67; PULSE 101; RESP 14; TEMP 36.9; O2SAT 94
[2022-11-30 09:43] VITALS: O2SAT 95
[2022-11-30] MEDS: PANTOPRAZOLE 40 MG TABLET PO ×2 (09:43→20:36)
--- NOTE | 2022-11-30 11:49 | PM.IMPN ---
Progress Note: A&P Assessment and Plan (1) GI bleed: Code(s): K92.2 - Gastrointestinal hemorrhage, unspecified Status: Acute Assessment and Plan: The patient did receive a blood transfusion. EGD report reviewed. Transfuse as needed. Ppi b.i.d. Pain is controlled. Once eating more, patient can be discharged, likely tomorrow (2) Hyperlipidemia: Code(s): E78.5 - Hyperlipidemia, unspecified Status: Acute Assessment and Plan: Hold atorvastatin at this time as the patient is NPO. (3) HTN (hypertension): Code(s): I10 - Essential (primary) hypertension Status: Acute Assessment and Plan: P.r.n. hydralazine is patient is NPO. Her lisinopril is currently on hold. (4) History of CVA (cerebrovascular accident): Code(s): Z86.73 - Personal history of transient ischemic attack (TIA), and cerebral infarction without residual deficits Status: Acute Assessment and Plan: The patient had been on aspirin and Plavix (5) Acute hyperkalemia: Code(s): E87.5 - Hyperkalemia Status: Acute Assessment and Plan: Recheck BMP now. (6) Depression: Code(s): F32.A - Depression, unspecified Status: Acute Assessment and Plan: Patient is NPO at this time. Continue duloxetine when patient is able to eat Subjective Date/time seen: 11/30/22 11:49 Interval history: No new complaints today. I am able to get out of her that she is no longer having abdominal pain. She has not eaten much since her procedure. She does complain of some nausea which is ongoing. Exam Const: General: cooperative, healthy appearing, comfortable, no acute distress, well developed, alert, awake, Physically active, average body habitus and well nourished Nutritional Appearance: average body habitus and well nourished Orientation/consciousness: oriented to person, oriented to place, oriented to time and patient oriented x3 Limitations: no limitations Other: The patient has expressive aphasia. She is able to answer by shaking her head yes and no. HENMT: Head: normal to inspection, No palpable skull fracture present, normocephalic and atraumatic Ears: hearing grossly normal bilaterally and external ears normal Face/Nose/Sinus: Normal external nose present and Normal nares present Other: NG tube and right near Eyes: General: appearance normal, both eyes and all related structures Alignment and Position: alignment normal Periorbital: periorbital findings normal Eyelids: eyelids normal Sclera: sclerae normal Pupils: Equal, round and reactive pupils present EOM: EOMs intact bilaterally Neck: Neck: normal visual inspection, full ROM, no lymphadenopathy, trachea midline and supple Chest: Chest palpation & inspection: normal inspection of the chest Resp: Effort & Inspection: normal respiratory effort Auscultation: clear to auscultation bilaterally Cardio: Palpation: normal PMI Rate: tachycardic Rhythm: regular rhythm Heart sounds: S1 normal heart sound present and S2 normal heart sound present Peripheral pulses: Peripheral pulses 2+ throughout GI: Inspection: normal to inspection Auscultation: normal bowel sounds Rectal Exam: deferred Other: Tenderness to lower abdomen Back/Spine/Pelvis: Cervical Spine: cervical ROM normal Skin: General skin exam: normal color Lesions: no lesions Rashes: no rashes Trauma: no lacerations or abrasions Wounds: no wounds Hair: normal Nails: normal Neuro: General: oriented to person, oriented to place, oriented to time and patient oriented x3 Cranial nerves: Yes Equal, round and reactive pupils present and Yes Normal hearing present Cognition (Neuro): normal cognition Speech: normal speech Gait exam (Neuro): Normal gait present Motor exam (neuro): 5/5 motor strength present throughout Sensory Exam: normal sensation Extrem: General: normal to inspection Right upper extremity: normal to inspection and shoul
--- NOTE | 2022-11-30 12:41 | WPDGIPROGNO ---
Progress Note: A&P Assessment and Plan (1) Hiatal hernia: Code(s): K44.9 - 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 Status: Acute Assessment and Plan: Hiatal hernia identified by endoscopy. 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 Plan for long-term PPI therapy for possible acid reflux. No bleeding at this time. Would limit anticoagulation as long as feasible perhaps 1 week before restarting. 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 Plan for Protonix 40mg p.o. b.i.d. for month or 2 and then once a day. Limit anticoagulation for at least 1 week to allow healing. Long-term would be great if possible. Okay with GI service for discharge when okay with others. (3) History of CVA (cerebrovascular accident): Code(s): Z86.73 - Personal history of transient ischemic attack (TIA), and cerebral infarction without residual deficits Status: Acute (4) Expressive aphasia: Code(s): R47.01 - Aphasia Status: Acute (5) Suprapubic pain: Code(s): R10.2 - Pelvic and perineal pain Status: Acute Assessment and Plan: Patient reports discomfort in the suprapubic area. Will obtain urinalysis. Further workup per primary care service. Subjective Date/time seen: 11/30/22 12:41 Interval history: Patient alert comfortable today. Tolerating regular diet. Notes some suprapubic discomfort today. No bleeding described. Review of Systems Review of Systems: Review of systems noncontributory. Exam Narrative: Physical exam reveals patient be alert. Remains nonverbal with her aphasia. HEENT exam unremarkable. Lungs are clear. Heart without murmur. Abdomen bowel sounds present soft no upper abdominal tenderness. She points to the suprapubic area noting some discomfort there. Objective Data Vital Signs Vital Signs: Vital Signs - 24 hr 11/29/22 13:22 11/29/22 14:49 11/29/22 14:59 Temperature 98 F Pulse Rate 96 100 98 Respiratory Rate 20 20 18 Blood Pressure 135/68 110/68 127/78 Pulse Oximetry 99 96 98 Oxygen Delivery Room Air Room Air Room Air 11/29/22 15:09 06/19/23 22:00 11/30/22 00:46 Temperature 97.3 F L 98.4 F Pulse Rate 97 101 H 105 H Respiratory Rate 20 14 16 Blood Pressure 132/73 140/68 Pulse Oximetry 98 96 95 Oxygen Delivery Room Air 11/29/22 20:00 11/30/22 06:13 11/30/22 10:37 Temperature 98.4 F Pulse Rate 101 H Respiratory Rate 14 Blood Pressure 125/67 Pulse Oximetry 94 Oxygen Delivery Room Air Room Air Intake/Output Intake/Output: Intake & Output 11/27/22 11/28/22 11/29/22 11/30/22 23:59 23:59 23:59 23:59 Intake Total 3470 4590 3660 200 Output Total 3200 1300 850 Balance 270 3290 2810 200 Meds/Results Medications: Active Medications Generic Name Dose Route Start Last Admin Trade Name Freq PRN Reason Stop Dose Admin Hydrocodone Bitart/Acetaminophen 1 tab 11/28/22 10:41 11/29/22 21:30 Hydrocodone/Acetaminophen (*Crx) 7.5-325 Mg Tablet PO 1 tab Q6H PRN Administration Pain Rated 7-10 Amoxicillin/Clavulanate Potassium 1 tablet 11/30/22 21:00 Amoxicillin/Clavulanate K 875-125 Mg Tab PO 12/03/22 23:59 Q12HR MADDIE Hydralazine HCl 10 mg 11/26/22 15:24 Hydralazine Hcl 20 Mg/Ml Vial IV PUSH Q8H PRN Blood Pressure - High Ondansetron HCl 4 mg 11/28/22 21:43 11/28/22 21:55 Ondansetron Inj 4 Mg/2 Ml Vial IV PUSH 4 mg Q6H PRN Administration Nausea And Vomiting Pantoprazole Sodium 40 mg 11/29/22 21:00 11/30/22 09:43 Pantoprazole 40 Mg Tablet PO 40 mg Q12HR MADDIE Administration Simethicone 0.3 ml 11/26/22 14:45 11/26/22 14:46 Simethicone Oral Suspension 20 Mg/0.3 Ml 30 Ml Bottle PO 0.6 ml ONCE PRN Adminis
--- NOTE | 2022-11-30 13:27 | PCPTNOTE ---
On 11/30/22, the student, [Isa Hollis], provided care and completed [facility] on this patient. I have reviewed the student's documentation and agree with the findings.
[2022-11-30 14:00] VITALS: BP 140/66; PULSE 96; RESP 16; TEMP 36.6; O2SAT 100
[2022-11-30] MEDS: AMOXICILLIN/CLAVULANATE K 875-125 MG TAB 1 TABLET PO (20:36)
[2022-11-30 20:59] VITALS: BP 132/73; PULSE 72; RESP 12; TEMP 36.3; O2SAT 94
[2022-12-01 06:00] VITALS: BP 132/69; PULSE 96; RESP 14; TEMP 36.2; O2SAT 94
[2022-12-01 09:50] VITALS: O2SAT 95
[2022-12-01] MEDS: PANTOPRAZOLE 40 MG TABLET PO (09:58)
[2022-12-01] MEDS: AMOXICILLIN/CLAVULANATE K 875-125 MG TAB 1 TABLET PO (09:59)
--- NOTE | 2022-12-01 10:54 | PM.DS ---
DS: Admitting Diagnosis Discharge Date 12/01/2022 Admitting Diagnosis GI bleed DS: Discharge Diagnosis Discharge Diagnosis (1) Gastric ulcer: Code(s): K25.9 - Gastric ulcer, unspecified as acute or chronic, without hemorrhage or perforation Status: Acute (2) Hiatal hernia: Code(s): K44.9 - 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 Status: Acute (3) Depression: Code(s): F32.A - Depression, unspecified Status: Acute DS: Summary Hospital Course Hospital Course: Assessment and Plan (1) GI bleed: ?Code(s): K92.2 - Gastrointestinal hemorrhage, unspecified ?Status:?Acute ?Assessment and Plan: The patient did receive a blood transfusion.? EGD report reviewed. ? 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 Plan for Protonix 40mg p.o. b.i.d. for month or 2 and then once a day.? Limit anticoagulation for at least 1 week to allow healing.? Long-term would be great if possible.?? (2) Hyperlipidemia: ?Code(s): E78.5 - Hyperlipidemia, unspecified ?Status:?Acute ?Assessment and Plan: Continue atorvastatin. (3) HTN (hypertension): ?Code(s): I10 - Essential (primary) hypertension ?Status:?Acute ?Assessment and Plan: Continue home medications. (4) History of CVA (cerebrovascular accident): ?Code(s): Z86.73 - Personal history of transient ischemic attack (TIA), and cerebral infarction without residual deficits ?Status:?Acute ?Assessment and Plan: The patient had been on aspirin and Plavix. Hold for 1 week and then resume (5) Depression: ?Code(s): F32.A - Depression, unspecified ?Status:?Acute ?Assessment and Plan: Continue home meds Patient is clinically stable and is being discharged Time Spent with Patient Time attestation: Total time spent providing and/or coordinating discharge services: DS: Data Data Completed and Pending Labs on day of discharge: Preliminary micro results at discharge 11/26/22 21:49 Blood Culture - Preliminary Blood 11/26/22 21:49 Blood Culture - Preliminary Blood Discharge Plan Discharge Consulting providers: Sourav Phillips Discharging Clinician: Augustine Bonilla Anticipated Discharge Date/Time: 12/01/22 08:43 Patient Disposition: SNF Activity: no preference Diet: heart healthy Stand Alone Forms: General Discharge Information Follow-up/Referrals: Sourav Phillips MD [Physician] - Fabio Bundy MD [Primary Care Provider] - Discharge Medications: New pantoprazole 40 mg Tablet,Delayed Release (Dr/Ec) 40 mg PO Q12HR Qty: 60 0RF Continued acetaminophen 325 mg Tablet 650 mg PO ONCE PRN (Reason: Pain) atorvastatin 20 mg Tablet 20 mg PO DAILY sodium chloride 1 gram Tablet 1,000 mg PO BID lisinopril 10 mg Tablet 10 mg PO DAILY mirtazapine 15 mg Tablet 15 mg PO DAILY oxybutynin chloride 5 mg Tablet 5 mg PO BID duloxetine 20 mg Capsule,Delayed Release(Dr/Ec) 20 mg PO BID Centrum Silver Women 8 mg iron-400 mcg-300 mcg Tablet 1 tablet PO DAILY epinephrine 0.3 mg/0.3 mL Auto-Injector 0.3 mg IM ONCE Rx Instructions: as a single dose; may repeat once cholecalciferol (vitamin D3) 50 mcg (2,000 unit) Capsule 50 mcg PO DAILY Held clopidogrel 75 mg Tablet 75 mg PO DAILY Hold Instructions: Resume on 12/08/22. aspirin [Adult Aspirin EC Low Strength] 81 mg Tablet,Delayed Release (Dr/Ec) 81 mg PO DAILY Hold Instructions: Resume on 12/08/22. Date of admission: 11/26/22 12:45 Primary Care Provider: Fabio Bundy Admitting Provider: Rebecca Fay Attending physician on admission: Augustine Bonilla Condition: Stable
[2022-12-01 13:45] VITALS: BP 141/77; PULSE 101; RESP 18; TEMP 35.7; O2SAT 96
[2022-12-01 14:34] LABS: EDCOVIDSCREEN Negative (Negative)
== END 2022-12-01 15:25 | DRG 377 ==
LOC: ANHED 06:57 → ANHICU 08:39 → ANHIMU 20:44 → ANH3MEDSUR 11-27 11:51
PROVIDERS: Chiropractor; Emergency Medicine; Internal Medicine Gastroenterology; Nurse Practitioner; Admitting Provider Student in an Organized Health Care Education/Training Program; Emergency Provider Emergency Medicine; PCP Family Medicine; Visit Provider Hospitalist
PROC: 0DJ08ZZ Inspection of Upper Intestinal Tract, Via Natural or Artificial Opening Endoscopic (ICD-10-PCS; CPT 43235; principal; 2022-11-26 15:00)
DX: K25.4 Chronic or unspecified gastric ulcer with hemorrhage (principal); Q39.4 Esophageal web; I69.351 Hemiplegia and hemiparesis following cerebral infarction affecting right dominant side; K22.2 Esophageal obstruction; K44.9 Diaphragmatic hernia without obstruction or gangrene; I69.320 Aphasia following cerebral infarction; F32.A Depression, unspecified; E78.5 Hyperlipidemia, unspecified; I10 Essential (primary) hypertension; Z20.822 Contact with and (suspected) exposure to COVID-19; E87.5 Hyperkalemia; M19.90 Unspecified osteoarthritis, unspecified site; Z66 Do not resuscitate; R10.2 Pelvic and perineal pain; Z79.82 Long term (current) use of aspirin; Z90.710 Acquired absence of both cervix and uterus; Z98.49 Cataract extraction status, unspecified eye
CPT/HCPCS: 36415; 36430; 74177; 80048; 80053; 82728; 83540; 83550; 83615; 83735; 84443; 85014; 85018; 85025; 85610; 85730; 86850; 86900; 86901; 86923; 87040; 87081; 87086; 87426; 93005; 96361; 96374; 97110; 97161; 97165; 97530; 99285; A9270; C9113; C9803; G0378; J0696; J2405; J2704; J3010; J7030; J7040; J7050; J7120; P9016; Q9967

== ENCOUNTER 2023-05-09 18:56 | Emergency (ER) | payer MEDICARE, SELFPAY ==
--- NOTE | ~2023-05-09 | CT_ITS ---
EXAMINATION: CT abdomen pelvis w con DATE: 05/09/2023 22:00 INDICATION: Right lower quadrant abdominal pain and tiny bright red stools TECHNIQUE: Computed tomography (CT) of the abdomen and pelvis was performed with 100 mL Omnipaque-350 intravenous contrast. Automated exposure control and iterative reconstruction technique were employe d. The dose-length product was 538.27 mGy-cm. COMPARISON: 11/26/2022 FINDINGS: Mild bronchiectatic changes at the bilateral lower lobes. Peripheral groundglass and reticular opacit ies at the bilateral lung bases which could represent atelectasis or chronic interstitial lung diseas e. Small calcified left lower lobe nodule consistent with old granulomatous disease. Heart size is no rmal. Atherosclerotic coronary artery calcific lesion. No pericardial or pleural effusion. Large slid ing-type hiatal hernia containing the majority the stomach. There is a small amount of potentially re fluxed fluid in the distal esophagus. Liver, gallbladder, spleen, pancreas and bilateral adrenal glan ds are normal. There are bilateral renal cysts in the largest at the upper pole the right kidney nick uring 4.2 cm in the remainder in both kidneys measuring less than 1 cm. Bladder and bilateral adnexa are unremarkable. There are couple small calcifications in the uterine fundus likely representing chr onic degeneration of uterine fibroids. Moderate amount of stool scattered throughout the colon with 6 .1 x 5.4 similar ball of stool at rectum which could be seen with constipation and fecal impaction. N o dilated bowel to suggest obstruction. No free intraperitoneal gas or fluid. No pathologically enlar ged abdominal or pelvic lymphadenopathy. S-shaped thoracolumbar scoliosis with severe spondylosis. IMPRESSION: 1. Moderate to large amount of colonic stool with 6 x 1 cm bowels filled rectum which could be seen w ith constipation and fecal impaction. No other acute intra-abdominal/pelvic process. 2. Large sliding-type hiatal hernia. Reviewed, dictated and finalized at location A. ACE SUPERVISOR IMPRESSION: 1. Moderate to large amount of colonic stool with 6 x 1 cm bowels filled rectum which could be seen with constipation and fecal impaction. No other acute intr a-abdominal/pelvic process. 2. Large sliding-type hiatal hernia.
[2023-05-09 18:57] VITALS: BP 151/72; PULSE 68; RESP 18; TEMP 36.7; O2SAT 100
[2023-05-09 20:34] VITALS: BP 143/77; PULSE 69; RESP 17; O2SAT 98
[2023-05-09 20:40] LABS: Basophils Absolute Auto 0.1 K/mm3 (0.0-0.1); Basophils Percent Auto 1.4 % (0.2-1.2); Eosinophils Absolute Auto 0.4 K/mm3 (0-0.3); Eosinophils Percent Auto 6.4 % (0-4.4); Hematocrit 37.5 % (37.0-47.0); Immature Granulocyte Absolute 0.02 K/mm3 (0.00-0.031); Immature Granulocyte Percent A 0.3 % (0-0.5); Lymphocytes Absolute Auto 1.25 K/mm3 (0.9-3.2); Lymphocytes Percent Auto 21.7 % (18.3-44.2); Mean Corpuscular Hemoglobin 28.9 pg (26-34); Mean Corpuscular Volume 90.4 fl (80-100); Mean Platelet Volume 9.1 fl (7.4-10.4); Monocytes Absolute Auto 0.6 K/mm3 (0.1-0.6); Monocytes Percent Auto 10.1 % (2.6-8.5); Neutrophils Absolute Auto 3.5 K/mm3 (1.3-6.7); Neutrophils Percent Auto 60.1 % (45.5-73.1); Platelet Count Result 226 k/mm3 (150-375); Red Blood Count 4.15 M/mm3 (4.2-5.4); Red Cell Distribution Width 14.4 % (11.5-14.5); White Blood Count 5.8 K/mm3 (4.5-10.0)
[2023-05-09 20:51] LABS: Alanine Aminotransferase 30 U/L (6-35); Albumin Level 3.9 g/dL (3.5-5.1); Alkaline Phosphatase 125 U/L (38-126); Anion Gap 5 mmol/L (8-16); Aspartate Amino Transferase 42 U/L (14-36); Bilirubin,Total 0.5 mg/dL (0.2-1.3); Blood Urea Nitrogen 32 mg/dL (7-17); Calcium 9.5 mg/dL (8.4-10.2); Carbon Dioxide 25 mmol/L (22-30); Chloride 107 mmol/L (98-107); Estimated CRCL calculation 40 ml/min; Estimated Glomerular Filt Rate > 60; Glucose 99 mg/dL (65-110); Potassium 4.6 mmol/L (3.4-5.0); Sodium 137 mmol/L (137-145)
[2023-05-09 20:53] LABS: INR 1.1; Prothrombin Time 15.1 Seconds (11.1-14.7)
--- NOTE | 2023-05-09 21:57 | PC.NURSE ---
Jen SMITH, pt caregiver at [facility] called for update on pt status.
--- NOTE | 2023-05-09 22:09 | ED.GENADULT ---
HPI - General Adult General Chief complaint: GI Bleed Stated complaint: POSSIBLE GI BLEED Time Seen by Provider: 05/09/23 21:14 History of Present Illness HPI narrative: patient is a 2-year-old female who presents emerged department with possible GI bleed [facility] administer some tar any bright red stools at the facility. The patient has history of aphasia and normal weakness on the right side the patient has had prior GI bleeds Related Data Home Medications Medication Instructions Recorded Confirmed acetaminophen 325 mg tablet 650 mg PO ONCE PRN Pain 10/01/21 11/26/22 aspirin 81 mg tablet,delayed 81 mg PO DAILY 10/01/21 11/26/22 release atorvastatin 20 mg tablet 20 mg PO DAILY 10/01/21 11/26/22 clopidogrel 75 mg tablet 75 mg PO DAILY 10/01/21 11/26/22 duloxetine 20 mg capsule,delayed 20 mg PO BID 10/01/21 11/26/22 release lisinopril 10 mg tablet 10 mg PO DAILY 10/01/21 11/26/22 mirtazapine 15 mg tablet 15 mg PO DAILY 10/01/21 11/26/22 [id number] 8 mg-folic 400 1 tablet PO DAILY 10/01/21 11/26/22 mcg-K 50 mcg-lutein 300 mcg tablet (Centrum Silver Women) oxybutynin chloride 5 mg tablet 5 mg PO BID 10/01/21 11/26/22 sodium chloride 1 gram tablet 1,000 mg PO BID 10/01/21 11/26/22 cholecalciferol (vitamin D3) 50 50 mcg PO DAILY 11/26/22 11/26/22 mcg (2,000 unit) capsule epinephrine 0.3 mg/0.3 mL 0.3 mg IM ONCE 11/26/22 11/26/22 injection, auto-injector Allergies Allergy/AdvReac Type Severity Reaction Status Date / Time codeine Allergy Other Verified 11/29/22 13:20 Sulfa (Sulfonamide Allergy Other Verified 11/29/22 13:20 Antibiotics) Review of Systems Review of Systems: A 10 system review of systems was completed on the patient and is negative except for what is stated in the HPI. Nursing and ancillary documentation was reviewed. [facility] Past Medical History Medical History Carotid artery disease Chronic anemia Depression Expressive aphasia GI bleed History of CVA (cerebrovascular accident) Right side effect HTN (hypertension) Hyperlipidemia Osteoarthritis Surgical History Surgical History H/O cataract extraction H/O: hysterectomy Family History Family History Unknown No problems noted. Social History Social History Social History: The patient is she resides at [place]. She has 2 children. 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 Her son otilio is her durable power cancer registry manager for healthcare. Code status DNR Smoking status: Unknown if ever smoked Alcohol intake: unknown Substance use: never Substance use type: does not use Lack of Transportation: No Lack of Food: Never True Current Housing: I Have Housing Concerned About Future Housing: No Difficulty Paying Gas/Electric Bills: No Difficulty Paying for Meds: No Currently Unemployed: No Education: Don't Know Difficulty w/ Childcare or Family Care: No Spiritual care concerns: No Exam Narrative: GENERAL: Well-appearing, well-nourished, and in no acute distress. HEAD: Normocephalic, atraumatic. EYES: PERRLA and EOMI. ENT: Nares clear, no rhinorrhea or epistaxis. Mucous membranes moist. NECK: Supple. CHEST: Clear to auscultation. No respiratory distress. HEART: Regular rate and rhythm. No murmur heard. Normal peripheral pulses. ABDOMEN: Soft, nontender, nondistended, normal active bowel sounds. : Stool is brown trace guaiac-positive no bright red blood no melanotic stool EXTREMITIES: Normal range of motion. No edema. SKIN: Warm, dry, no rash. NEURO: No focal deficits. Alert and oriented x3. PSYCH: Normal mood and affect. Course Vital Signs Vital signs: Vital Signs
[2023-05-09 22:34] VITALS: PULSE 79; RESP 17; O2SAT 99
[2023-05-09 23:24] VITALS: BP 132/62; PULSE 76; RESP 18; O2SAT 99
[2023-05-10 00:51] VITALS: BP 156/72; PULSE 70; RESP 14; O2SAT 96
[2023-05-10] MEDS: polyethylene glycoL 3350 17 GM POWD.PACK PO (02:02)
== END 2023-05-10 02:13 ==
PROVIDERS: Emergency Provider Emergency Medicine; PCP Family Medicine
DX: K56.41 Fecal impaction (principal); I25.10 Atherosclerotic heart disease of native coronary artery without angina pectoris; I69.920 Aphasia following unspecified cerebrovascular disease; I69.951 Hemiplegia and hemiparesis following unspecified cerebrovascular disease affecting right dominant side; I10 Essential (primary) hypertension; E78.5 Hyperlipidemia, unspecified; D64.9 Anemia, unspecified; M19.90 Unspecified osteoarthritis, unspecified site; Z98.49 Cataract extraction status, unspecified eye; Z90.710 Acquired absence of both cervix and uterus; K44.9 Diaphragmatic hernia without obstruction or gangrene
CPT/HCPCS: 36415; 74177; 80053; 85025; 85610; 85730; 86850; 86900; 86901; 99284; Q9967

== ENCOUNTER 2023-05-12 21:45 | Inpatient (IN) | payer MEDICARE, SELFPAY ==
--- NOTE | ~2023-05-12 | CT_ITS ---
EXAMINATION: CT abdomen pelvis w con DATE: 05/12/2023 23:47 INDICATION: Gastrointestinal bleed with abdominal pain TECHNIQUE: Computed tomography (CT) of the abdomen and pelvis was performed with 100 mL Omnipaque-350 intravenous contrast. Automated exposure control and iterative reconstruction technique were employe d. The dose-length product was 765.15 mGy-cm. COMPARISON: 01/06/2023 FINDINGS: Groundglass and reticular opacities at the bilateral lung bases and favor atelectasis over pulmonary edema or pneumonia. Heart size is normal. No pericardial or pleural effusion. Large sliding-type hiat al hernia containing the majority the stomach. Liver, gallbladder, spleen, pancreas and bilateral adr enal glands are normal. There are bilateral renal cysts, the largest at the upper pole the right kidn ey measuring 4.2 cm and the remainder in both kidneys measuring less than 1 cm. Bladder and bilateral adnexa are unremarkable. There are couple small calcifications in the uterine fundus likely represen ting chronic degeneration of uterine fibroids. Moderate to large amount of stool scattered throughout the colon. No dilated bowel to suggest obstruction. The appendix is not visualized. No pericecal inf lammatory change to suggest acute appendicitis.. No free intraperitoneal gas or fluid. No pathologic ally enlarged abdominal or pelvic lymphadenopathy. S-shaped thoracolumbar scoliosis with severe spond ylosis. IMPRESSION: 1. Moderate to large amount of colonic stool which could be seen with constipation. No other acute in tra-abdominal/pelvic process. 2. Large sliding-type hiatal hernia. Reviewed, dictated and finalized at location A. GER ASSEMBLY IMPRESSION: 1. Moderate to large amount of colonic stool which could be seen with constipat ion. No other acute intra-abdominal/pelvic process. 2. Large sliding-type hiatal hernia.
[2023-05-12 21:48] VITALS: BP 114/56; PULSE 78; RESP 16; TEMP 36.6; O2SAT 96
[2023-05-12 22:21] LABS: Basophils Absolute Auto 0.1 K/mm3 (0.0-0.1); Eosinophils Absolute Auto 0.5 K/mm3 (0-0.3); Eosinophils Percent Auto 7.5 % (0-4.4); Hematocrit 37.8 % (37.0-47.0); Hemoglobin 12.3 g/dL (12.0-15.0); Immature Granulocyte Absolute 0.02 K/mm3 (0.00-0.031); Immature Granulocyte Percent A 0.3 % (0-0.5); Lymphocytes Absolute Auto 1.49 K/mm3 (0.9-3.2); Lymphocytes Percent Auto 24.8 % (18.3-44.2); Mean Corpuscular HGB Conc 32.5 g/dl (32-36); Mean Corpuscular Hemoglobin 29.1 pg (26-34); Mean Corpuscular Volume 89.6 fl (80-100); Mean Platelet Volume 9.3 fl (7.4-10.4); Monocytes Absolute Auto 0.7 K/mm3 (0.1-0.6); Monocytes Percent Auto 10.8 % (2.6-8.5); Neutrophils Absolute Auto 3.3 K/mm3 (1.3-6.7); Neutrophils Percent Auto 55.6 % (45.5-73.1); Platelet Count Result 245 k/mm3 (150-375); Red Blood Count 4.22 M/mm3 (4.2-5.4); Red Cell Distribution Width 14.6 % (11.5-14.5)
[2023-05-12 22:28] LABS: INR 1.1
[2023-05-12 22:29] LABS: Partial Thromboplastin Time 32.2 SECONDS (22.3-36.8)
[2023-05-12 22:30] LABS: Alanine Aminotransferase 28 U/L (6-35); Albumin Level 3.9 g/dL (3.5-5.1); Alkaline Phosphatase 149 U/L (38-126); Anion Gap 10 mmol/L (8-16); Aspartate Amino Transferase 38 U/L (14-36); Bilirubin,Total 0.4 mg/dL (0.2-1.3); Blood Urea Nitrogen 31 mg/dL (7-17); Calcium 9.3 mg/dL (8.4-10.2); Carbon Dioxide 20 mmol/L (22-30); Chloride 107 mmol/L (98-107); Estimated CRCL calculation 51 ml/min; Estimated Glomerular Filt Rate > 60; Glucose 111 mg/dL (65-110); Potassium 4.3 mmol/L (3.4-5.0); Sodium 137 mmol/L (137-145)
[2023-05-12 23:27] VITALS: BP 102/62; PULSE 70; RESP 15; O2SAT 100
[2023-05-13 01:16] VITALS: BP 112/58; PULSE 72; RESP 16; O2SAT 98
--- NOTE | 2023-05-13 01:54 | ED.GENADULT ---
HPI - General Adult General Chief complaint: GI Bleed Stated complaint: gi bleed Time Seen by Provider: 05/12/23 23:04 History of Present Illness HPI narrative: patient 82-year-old female who presents emergent with chief complaint of rectal bleeding. patient was seen in the emergency department recently after having fecal impaction the patient today had a episode of bright red blood per rectum at the nursing facility and was sent to the emergency department. Patient currently has no complaints Related Data Home Medications Medication Instructions Recorded Confirmed acetaminophen 325 mg tablet 650 mg PO ONCE PRN Pain 10/01/21 11/26/22 aspirin 81 mg tablet,delayed 81 mg PO DAILY 10/01/21 11/26/22 release atorvastatin 20 mg tablet 20 mg PO DAILY 10/01/21 11/26/22 clopidogrel 75 mg tablet 75 mg PO DAILY 10/01/21 11/26/22 duloxetine 20 mg capsule,delayed 20 mg PO BID 10/01/21 11/26/22 release lisinopril 10 mg tablet 10 mg PO DAILY 10/01/21 11/26/22 mirtazapine 15 mg tablet 15 mg PO DAILY 10/01/21 11/26/22 [id number] 8 mg-folic 400 1 tablet PO DAILY 10/01/21 11/26/22 mcg-K 50 mcg-lutein 300 mcg tablet (Centrum Silver Women) oxybutynin chloride 5 mg tablet 5 mg PO BID 10/01/21 11/26/22 sodium chloride 1 gram tablet 1,000 mg PO BID 10/01/21 11/26/22 cholecalciferol (vitamin D3) 50 50 mcg PO DAILY 11/26/22 11/26/22 mcg (2,000 unit) capsule epinephrine 0.3 mg/0.3 mL 0.3 mg IM ONCE 11/26/22 11/26/22 injection, auto-injector Allergies Allergy/AdvReac Type Severity Reaction Status Date / Time codeine Allergy Other Verified 11/29/22 13:20 Sulfa (Sulfonamide Allergy Other Verified 11/29/22 13:20 Antibiotics) Review of Systems Review of Systems: A 10 system review of systems was completed on the patient and is negative except for what is stated in the HPI. Nursing and ancillary documentation was reviewed. [facility] Past Medical History Medical History Carotid artery disease Chronic anemia Depression Expressive aphasia GI bleed History of CVA (cerebrovascular accident) Right side effect HTN (hypertension) Hyperlipidemia Osteoarthritis Surgical History Surgical History H/O cataract extraction H/O: hysterectomy Family History Family History Unknown No problems noted. Social History Social History Social History: The patient is she resides at [place]. She has 2 children. 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 Her son otilio is her durable power silk trimmer for healthcare. Code status DNR Smoking status: Unknown if ever smoked Alcohol intake: unknown Substance use: never Substance use type: does not use Lack of Transportation: No Lack of Food: Never True Current Housing: I Have Housing Concerned About Future Housing: No Difficulty Paying Gas/Electric Bills: No Difficulty Paying for Meds: No Currently Unemployed: No Education: Don't Know Difficulty w/ Childcare or Family Care: No Spiritual care concerns: No Exam Narrative: GENERAL: Well-appearing, well-nourished, and in no acute distress. HEAD: Normocephalic, atraumatic. EYES: PERRLA and EOMI. ENT: Nares clear, no rhinorrhea or epistaxis. Mucous membranes moist. NECK: Supple. CHEST: Clear to auscultation. No respiratory distress. HEART: Regular rate and rhythm. No murmur heard. Normal peripheral pulses. ABDOMEN: Soft, nontender, nondistended, normal active bowel sounds. : Hard stool in the rectal vault there was red blood in the rectal vault. EXTREMITIES: Normal range of motion. No edema. SKIN: Warm, dry, no rash. NEURO: No Newfocal deficits baseline right-sided weakness. Alert and oriented x3 histor
[2023-05-13 03:08] VITALS: BP 108/56; PULSE 72; RESP 15; O2SAT 98
[2023-05-13] MEDS: SODIUM CHLORIDE 0.9% IV 1,000 ML 125 ML IV CONT ×2 (03:59→14:34)
[2023-05-13 04:12] VITALS: PULSE 72; RESP 15; O2SAT 98
--- NOTE | 2023-05-13 04:53 | ADMGEN ---
This patient, Dana Francois, was admitted to Medical Room 349-01. Patient/family oriented to hospital policies and general routines including ID bracelet, bed and alarms, visiting hours, pain management, procedures, bathroom and other care routines, personal items, smoking policy, room service/diet, and visiting hours. Information on how to activate the Rapid Response Team has been discussed. Patient/Family are encouraged to report perceived risks to care and to ask questions if they do not understand what they are told or what they should do.
[2023-05-13 04:54] VITALS: BMI 22.4
[2023-05-13 05:20] VITALS: PULSE 74; RESP 18; TEMP 37; O2SAT 99
[2023-05-13 08:09] LABS: Hematocrit 37.1 % (37.0-47.0); Hemoglobin 11.9 g/dL (12.0-15.0)
--- NOTE | 2023-05-13 10:06 | PM.IMHP ---
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 Work up in the hospital includes a CT of the abdomen/pelvis with contrast that revealed moderate to large amount of colonic stool with 6 x1 cm bowels filled rectum which can be seen with constipation and fecal impaction, no other acute intra-abdominal /pelvic process, large sliding-type hiatal hernia. She was started on Protonix, given a dose of zofran and was started on IV fluids. Patient does take plavix and aspirin at home and these were held. Serial H/H remained stable x3. On examination today patient is alert and oriented x2-3. She has expressive aphasia so it has been difficult getting details or history from her. According to the nurse the patient had a bright red stool at [facility] and it was thought to be from a hemorrhoid. VSS, she is afebrile, and currently on room air. She denies any nausea, vomiting, diarrhea, abdominal pain, shortness of breath, chest pain, fever or chills. She has not had a bowel movement since being admitted. Labs today reveal WBC 5.3, hgb 11.9, Hct 37.1,Na+ 139, K+ 4.5, Chloride 109, BUN 26, Creatinine 0.80, BG ranging 97-111, AST 49, ALT 37, Alk phos 149. Her Hgb was 12.3 and Hct was 37.8 on 05/12/23. Of note patient was recently discharged from the ED for similar presentation on 05/11/23 where they did a manual disimpaction of the rectal vault and then given a soap suds enema with minimal output. The stool that was removed was brown, there was no bright red blood or melanotic stool seen at that time. Patient was given p.o. laxatives to help facilitate further evacuation and was sent back to [facility]. Prior to that, patient had an EGD done with Dr. Phillips back on 11/29/22 which revealed a gastric ulcer and the sliding type hiatal hernia. Biopsy was sent and a was negative for H. pylori. Patient was started on Protonix 40 mg BID at that time. Review of Systems Review of Systems: All systems reviewed & are unremarkable except as noted in HPI and below Constitutional: Constitutional: Reports as per HPI and Reports no additional constitutional complaints Eyes: Eyes: Reports as per HPI and Reports no additional eye complaints ENT: Reports system reviewed and no additional complaints, except as documented and Reports as per HPI Cardiovascular: Cardiovascular: Reports as per HPI and Reports no additional cardiovascular complaints Respiratory: Respiratory: Reports as per HPI and Reports no additional respiratory complaints Gastrointestinal: Gastrointestinal: Reports as per HPI and Reports no additional gastrointestinal complaints Genitourinary: Genitourinary: Reports no additional female genitourinary complaints and Reports as per HPI Musculoskeletal: Musculoskeletal: Reports no additional musculoskeletal complaints and Reports as per HPI Integumentary/Breasts: Skin/Breast: Reports system reviewed and no additional complaints, except as docu and Reports as per HPI Neurologic: Reports system reviewed and no additional complaints, except as documented and Reports as per HPI Psychiatric: Psychiatric: Reports no additional psychiatric complaints and Reports as per HPI PMFSH Past Medical History Medical History Carotid artery disease Chronic anemia Depression Expressive aphasia GI bleed History of CVA (cerebrovascular accident) Right side effect HTN (hypertension) Hyperlipidemia Osteoarthritis Surgical History Surgical History H/O cataract extraction H/O: hysterectomy Family His
[2023-05-13 10:21] LABS: Alanine Aminotransferase 37 U/L (6-35); Albumin Level 3.6 g/dL (3.5-5.1); Alkaline Phosphatase 149 U/L (38-126); Anion Gap 4 mmol/L (8-16); Aspartate Amino Transferase 49 U/L (14-36); Bilirubin,Total 0.4 mg/dL (0.2-1.3); Blood Urea Nitrogen 26 mg/dL (7-17); Carbon Dioxide 26 mmol/L (22-30); Chloride 109 mmol/L (98-107); Estimated CRCL calculation 45 ml/min; Estimated Glomerular Filt Rate > 60; Glucose 97 mg/dL (65-110); Potassium 4.5 mmol/L (3.4-5.0); Sodium 139 mmol/L (137-145)
[2023-05-13 10:33] LABS: Mean Corpuscular HGB Conc 31.9 g/dl (32-36); Mean Corpuscular Hemoglobin 29.1 pg (26-34); Mean Corpuscular Volume 91.2 fl (80-100); Mean Platelet Volume 9.3 fl (7.4-10.4); Platelet Count Result 224 k/mm3 (150-375); Red Blood Count 4.09 M/mm3 (4.2-5.4); Red Cell Distribution Width 14.6 % (11.5-14.5); White Blood Count 5.3 K/mm3 (4.5-10.0)
[2023-05-13] MEDS: PANTOPRAZOLE SODIUM IV 40 MG VIAL IV PUSH (11:27)
[2023-05-13] MEDS: ASPIRIN 81 MG ENTERIC TABLET PO (13:28)
[2023-05-13] MEDS: CLOPIDOGREL BISULFATE 75 MG TABLET PO (13:28)
[2023-05-13] MEDS: lisinopriL 10 MG TABLET PO (13:28)
[2023-05-13] MEDS: CHOLECALCIFEROL 1,000 UNITS TABLET 2000 UNITS PO (13:28)
[2023-05-13] MEDS: MIRTAZAPINE 15 MG TABLET PO (13:28)
[2023-05-13 14:00] VITALS: BP 135/57; PULSE 66; RESP 16; TEMP 36.4; O2SAT 100
--- NOTE | 2023-05-13 17:09 | PC.NURSE ---
Lpn Private Duty spoke with sonDelmar by phone regarding any dietary restrictions or swallowing issues with patient. Son states that patient is able to eat and drink without difficulty since stroke.
[2023-05-13] MEDS: DULoxetine HCL 20 MG CAPSULE.DR PO (17:29)
[2023-05-13] MEDS: oxyBUTYnin CHLORIDE 5 MG TABLET PO (17:30)
[2023-05-13] MEDS: DOCUSATE SODIUM 100 MG CAPSULE PO (21:06)
[2023-05-13] MEDS: PANTOPRAZOLE 40 MG TABLET PO (21:06)
[2023-05-13 21:24] VITALS: BP 134/62; PULSE 73; RESP 18; TEMP 36.8; O2SAT 93
[2023-05-14] MEDS: SODIUM CHLORIDE 0.9% IV 1,000 ML 125 ML IV CONT ×3 (03:37→20:52)
[2023-05-14 05:57] LABS: Hematocrit 36.3 % (37.0-47.0); Hemoglobin 11.6 g/dL (12.0-15.0); Mean Corpuscular Hemoglobin 28.7 pg (26-34); Mean Corpuscular Volume 89.9 fl (80-100); Mean Platelet Volume 8.5 fl (7.4-10.4); Platelet Count Result 202 k/mm3 (150-375); Red Blood Count 4.04 M/mm3 (4.2-5.4); Red Cell Distribution Width 14.3 % (11.5-14.5); White Blood Count 5.7 K/mm3 (4.5-10.0)
[2023-05-14 05:59] VITALS: BP 119/61; PULSE 75; RESP 20; TEMP 36.6; O2SAT 93
[2023-05-14 06:12] LABS: Alanine Aminotransferase 28 U/L (6-35); Albumin Level 3.2 g/dL (3.5-5.1); Alkaline Phosphatase 144 U/L (38-126); Anion Gap 5 mmol/L (8-16); Aspartate Amino Transferase 33 U/L (14-36); Bilirubin,Total 0.5 mg/dL (0.2-1.3); Blood Urea Nitrogen 16 mg/dL (7-17); Calcium 8.5 mg/dL (8.4-10.2); Carbon Dioxide 22 mmol/L (22-30); Chloride 112 mmol/L (98-107); Estimated CRCL calculation 45 ml/min; Estimated Glomerular Filt Rate > 60; Glucose 89 mg/dL (65-110); Sodium 139 mmol/L (137-145)
--- NOTE | 2023-05-14 08:53 | P.PNIM_ITS ---
Progress Note: A&P Assessment and Plan (1) Acute GI bleeding: Code(s): K92.2 - Gastrointestinal hemorrhage, unspecified Status: Acute Assessment and Plan: 05/13/23: * Initial Hgb 11.0/Hct 34.0 which is down from Hgb 12.3/Hct37.8 on 05/12/23. * Serial H/H stable x2, discontinued series * Continue to trend labs * Patient had 1 bright red stool at [facility], no stools since admission * Will go ahead and restart aspirin and Plavix given she is stable at this time. * Consider GI consult if she starts bleeding again. 05/14/23: * Hemoglobin 11.6, hematocrit 36.3. This has remained stable the entire admission * Continue to trend labs (2) Fecal impaction: Code(s): K56.41 - Fecal impaction Status: Inactive Assessment and Plan: 05/13/23: * CT of the abdomen and pelvis revealed moderate to large amount of colonic stool which could be seen with constipation, large sliding-type hiatal hernia, no other acute intra-abdominal/pelvic process. * Will give soap suds enema today * Started Miralax and Colace 05/14/23: * Patient had soapsuds enema yesterday which did not produce a bowel movement. We will go ahead and give a dose of Mag citrate today to see if this will help produce a bowel movement. * Continue with bowel regimen (3) HTN (hypertension): Code(s): I10 - Essential (primary) hypertension Status: Acute Assessment and Plan: 05/13/23: * B/P ranging 108/56-135/57 * Restarted on Lisinopril 05/14/23: * No change to current treatment plan (4) Hyperlipidemia: Code(s): E78.5 - Hyperlipidemia, unspecified Status: Acute Assessment and Plan: 05/13/23: * Holding atorvastatin 20mg due to transaminitis 05/14/23: * Continue to hold atorvastatin 20 mg today, liver enzymes have just now normalized. * Will reassess tomorrow (5) History of CVA (cerebrovascular accident): Code(s): Z86.73 - Personal history of transient ischemic attack (TIA), and cerebral infarction without residual deficits Status: Chronic Assessment and Plan: 12/1/23: * Expressive aphasia and right sided weakness * Lives at [facility] 05/14/23: * Of note, no change to current treatment plan (6) Depression: Code(s): F32.A - Depression, unspecified Status: Acute Assessment and Plan: 05/13/23: * Continue Duloxetine 20 mg 05/14/23: * No change to current treatment plan Time Spent With Patient Time with patient: Greater than 35 minutes Subjective Date/time seen: 05/14/23 08:53 Interval history: 05/13/23: This is an 82 year old female with a significant past medical history of CAD, chronic anemia, depression, expressive aphasia, 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 Work up in the hospital includes a CT of the abdomen/pelvis with contrast that revealed moderate to large amount of colonic stool with 6 x1 cm bowels filled rectum which can be seen with constipation and fecal impaction, no other acute intra-abdominal /pelvic process, large sliding-type hiatal hernia. She was started on Protonix, given a dose of zofran and was started on IV fluids. Patient does take plavix and aspirin at home and these were held. Serial H/H remained stable x3. On examination today patient is alert and oriented x2-3. She has expressive aphasia so it has been difficult getting details or history from her. According to the nurse the patient had a bright red stool at
--- NOTE | 2023-05-14 08:53 | PM.IMPN ---
Progress Note: A&P Assessment and Plan (1) Acute GI bleeding: Code(s): K92.2 - Gastrointestinal hemorrhage, unspecified Status: Acute Assessment and Plan: 05/13/23: Initial Hgb 11.0/Hct 34.0 which is down from Hgb 12.3/Hct37.8 on 05/12/23. Serial H/H stable x2, discontinued series Continue to trend labs Patient had 1 bright red stool at [facility], no stools since admission Will go ahead and restart aspirin and Plavix given she is stable at this time. Consider GI consult if she starts bleeding again. 05/14/23: Hemoglobin 11.6, hematocrit 36.3. This has remained stable the entire admission Continue to trend labs (2) Fecal impaction: Code(s): K56.41 - Fecal impaction Status: Inactive Assessment and Plan: 05/13/23: CT of the abdomen and pelvis revealed moderate to large amount of colonic stool which could be seen with constipation, large sliding-type hiatal hernia, no other acute intra-abdominal/pelvic process. Will give soap suds enema today Started Miralax and Colace 05/14/23: Patient had soapsuds enema yesterday which did not produce a bowel movement. We will go ahead and give a dose of Mag citrate today to see if this will help produce a bowel movement. Continue with bowel regimen (3) HTN (hypertension): Code(s): I10 - Essential (primary) hypertension Status: Acute Assessment and Plan: 05/13/23: B/P ranging 108/56-135/57 Restarted on Lisinopril 05/14/23: No change to current treatment plan (4) Hyperlipidemia: Code(s): E78.5 - Hyperlipidemia, unspecified Status: Acute Assessment and Plan: 05/13/23: Holding atorvastatin 20mg due to transaminitis 05/14/23: Continue to hold atorvastatin 20 mg today, liver enzymes have just now normalized. Will reassess tomorrow (5) History of CVA (cerebrovascular accident): Code(s): Z86.73 - Personal history of transient ischemic attack (TIA), and cerebral infarction without residual deficits Status: Chronic Assessment and Plan: 05/13/23: Expressive aphasia and right sided weakness Lives at [facility] 05/14/23: Of note, no change to current treatment plan (6) Depression: Code(s): F32.A - Depression, unspecified Status: Acute Assessment and Plan: 05/13/23: Continue Duloxetine 20 mg 05/14/23: No change to current treatment plan Time Spent With Patient Time with patient: Greater than 35 minutes Subjective Date/time seen: 05/14/23 08:53 Interval history: 05/13/23: This is an 82 year old female with a significant past medical history of CAD, chronic anemia, depression, expressive aphasia, 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 Work up in the hospital includes a CT of the abdomen/pelvis with contrast that revealed moderate to large amount of colonic stool with 6 x1 cm bowels filled rectum which can be seen with constipation and fecal impaction, no other acute intra-abdominal /pelvic process, large sliding-type hiatal hernia. She was started on Protonix, given a dose of zofran and was started on IV fluids. Patient does take plavix and aspirin at home and these were held. Serial H/H remained stable x3. On examination today patient is alert and oriented x2-3. She has expressive aphasia so it has been difficult getting details or history from her. According to the nurse the patient had a bright red stool at [facility] and it was thought to be from a hemorrhoid.? VSS, she is afebrile, and currently on room air. She denies any nausea, vomiting, diarrhea, abdominal pain, shortness of breath, chest pain, fever or chills. She has not had a bowel movement since being admitted.? Labs today reveal WBC 5.3, hgb 11.9, Hct 37.1,Na+ 139, K+ 4.5, Chloride 109, BUN 26, Creatinine 0.80, BG ranging 97-111, AST 49, ALT 37, Alk phos 149.? Her Hg
[2023-05-14] MEDS: DULoxetine HCL 20 MG CAPSULE.DR PO ×2 (09:05→17:25)
[2023-05-14] MEDS: DOCUSATE SODIUM 100 MG CAPSULE PO ×2 (09:05→20:52)
[2023-05-14] MEDS: ASPIRIN 81 MG ENTERIC TABLET PO (09:05)
[2023-05-14] MEDS: lisinopriL 10 MG TABLET PO (09:05)
[2023-05-14] MEDS: oxyBUTYnin CHLORIDE 5 MG TABLET PO ×2 (09:05→17:25)
[2023-05-14] MEDS: CHOLECALCIFEROL 1,000 UNITS TABLET 2000 UNITS PO (09:05)
[2023-05-14] MEDS: CLOPIDOGREL BISULFATE 75 MG TABLET PO (09:05)
[2023-05-14] MEDS: MIRTAZAPINE 15 MG TABLET PO (09:05)
[2023-05-14] MEDS: PANTOPRAZOLE 40 MG TABLET PO ×2 (09:05→20:52)
[2023-05-14] MEDS: MAGNESIUM CITRATE 300 ML BTL PO (10:02)
[2023-05-14 14:37] VITALS: BP 127/63; PULSE 85; RESP 20; TEMP 36.8; O2SAT 98
--- NOTE | 2023-05-14 16:39 | PCPTNOTE ---
called provider and left voicemail that we are discharging from PT
[2023-05-14 19:42] VITALS: BP 123/60; PULSE 93; RESP 16; TEMP 36.6; O2SAT 97
[2023-05-15 05:36] VITALS: BP 111/55; PULSE 74; RESP 14; TEMP 36.7; O2SAT 94
[2023-05-15 06:21] LABS: Hematocrit 34.4 % (37.0-47.0); Hemoglobin 11.1 g/dL (12.0-15.0); Mean Corpuscular HGB Conc 32.3 g/dl (32-36); Mean Corpuscular Hemoglobin 28.6 pg (26-34); Mean Corpuscular Volume 88.7 fl (80-100); Mean Platelet Volume 8.3 fl (7.4-10.4); Platelet Count Result 196 k/mm3 (150-375); Red Blood Count 3.88 M/mm3 (4.2-5.4); Red Cell Distribution Width 14.5 % (11.5-14.5); White Blood Count 4.8 K/mm3 (4.5-10.0)
[2023-05-15 06:44] LABS: Alanine Aminotransferase 23 U/L (6-35); Albumin Level 2.9 g/dL (3.5-5.1); Alkaline Phosphatase 133 U/L (38-126); Anion Gap 5 mmol/L (8-16); Aspartate Amino Transferase 31 U/L (14-36); Bilirubin,Total 0.4 mg/dL (0.2-1.3); Blood Urea Nitrogen 12 mg/dL (7-17); Calcium 8.3 mg/dL (8.4-10.2); Carbon Dioxide 22 mmol/L (22-30); Chloride 112 mmol/L (98-107); Estimated CRCL calculation 51 ml/min; Estimated Glomerular Filt Rate > 60; Glucose 93 mg/dL (65-110); Potassium 4.1 mmol/L (3.4-5.0); Sodium 139 mmol/L (137-145)
[2023-05-15] MEDS: DOCUSATE SODIUM 100 MG CAPSULE PO ×2 (09:09→20:04)
[2023-05-15] MEDS: DULoxetine HCL 20 MG CAPSULE.DR PO ×2 (09:09→17:48)
[2023-05-15] MEDS: oxyBUTYnin CHLORIDE 5 MG TABLET PO ×2 (09:09→17:48)
[2023-05-15] MEDS: CLOPIDOGREL BISULFATE 75 MG TABLET PO (09:09)
[2023-05-15] MEDS: PANTOPRAZOLE 40 MG TABLET PO ×2 (09:09→20:04)
[2023-05-15] MEDS: CHOLECALCIFEROL 1,000 UNITS TABLET 2000 UNITS PO (09:09)
[2023-05-15] MEDS: ASPIRIN 81 MG ENTERIC TABLET PO (09:09)
[2023-05-15] MEDS: lisinopriL 10 MG TABLET PO (09:09)
[2023-05-15] MEDS: MIRTAZAPINE 15 MG TABLET PO (09:09)
[2023-05-15] MEDS: SODIUM CHLORIDE 0.9% IV 1,000 ML 125 ML IV CONT ×2 (09:39→14:27)
[2023-05-15 14:40] VITALS: BP 137/79; PULSE 74; RESP 18; TEMP 36.9; O2SAT 98
--- NOTE | 2023-05-15 15:10 | P.PNIM_ITS ---
Progress Note: A&P Assessment and Plan (1) Fecal impaction: Code(s): K56.41 - Fecal impaction Status: Inactive Assessment and Plan: 05/13/23: * CT of the abdomen and pelvis revealed moderate to large amount of colonic stool which could be seen with constipation, large sliding-type hiatal hernia, no other acute intra-abdominal/pelvic process. * Will give soap suds enema today * Started Miralax and Colace 05/14/23: * Patient had soapsuds enema yesterday which did not produce a bowel movement. We will go ahead and give a dose of Mag citrate today to see if this will help produce a bowel movement. * Continue with bowel regimen 05/15/23: * No BM noted over night again. We will give a fleets enema today * Start Dulcolax po and schedule Miralax instead of PRN. (2) Acute GI bleeding: Code(s): K92.2 - Gastrointestinal hemorrhage, unspecified Status: Acute Assessment and Plan: 05/13/23: * Initial Hgb 11.0/Hct 34.0 which is down from Hgb 12.3/Hct37.8 on 05/12/23. * Serial H/H stable x2, discontinued series * Continue to trend labs * Patient had 1 bright red stool at [facility], no stools since admission * Will go ahead and restart aspirin and Plavix given she is stable at this time. * Consider GI consult if she starts bleeding again. 05/14/23: * Hemoglobin 11.6, hematocrit 36.3. This has remained stable the entire admission * Continue to trend labs 05/15/23: * H/H remains stable, no signs of bleeding (3) HTN (hypertension): Code(s): I10 - Essential (primary) hypertension Status: Acute Assessment and Plan: 05/13/23: * B/P ranging 108/56-135/57 * Restarted on Lisinopril 05/14/23: * No change to current treatment plan (4) Hyperlipidemia: Code(s): E78.5 - Hyperlipidemia, unspecified Status: Acute Assessment and Plan: 05/13/23: * Holding atorvastatin 20mg due to transaminitis 05/14/23: * Continue to hold atorvastatin 20 mg today, liver enzymes have just now normalized. * Will reassess tomorrow 05/15/23: * Restarting atorvastatin * Liver enzymes remain stable (5) History of CVA (cerebrovascular accident): Code(s): Z86.73 - Personal history of transient ischemic attack (TIA), and cerebral infarction without residual deficits Status: Chronic Assessment and Plan: 05/13/23: * Expressive aphasia and right sided weakness * Lives at [facility] 05/14/23: * Of note, no change to current treatment plan (6) Depression: Code(s): F32.A - Depression, unspecified Status: Acute Assessment and Plan: 05/13/23: * Continue Duloxetine 20 mg 05/14/23: * No change to current treatment plan Time Spent With Patient Time with patient: 25 - 35 minutes Subjective Date/time seen: 05/15/23 15:10 Interval history: 05/13/23: This is an 82 year old female with a significant past medical history of CAD, chronic anemia, depression, expressive aphasia, 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 Work up in the hospital includes a CT of the abdomen/pelvis with contrast that revealed moderate to large amount of colonic stool with 6 x1 cm bowels filled rectum which can be seen with constipation and fecal impaction, no other acute intra-abdominal /pelvic process, large sliding-type hiatal hernia. She was started on Protonix, given a dose of zofran and was started on IV fluids. Patient does take p
--- NOTE | 2023-05-15 15:10 | PM.IMPN ---
Progress Note: A&P Assessment and Plan (1) Fecal impaction: Code(s): K56.41 - Fecal impaction Status: Inactive Assessment and Plan: 05/13/23: CT of the abdomen and pelvis revealed moderate to large amount of colonic stool which could be seen with constipation, large sliding-type hiatal hernia, no other acute intra-abdominal/pelvic process. Will give soap suds enema today Started Miralax and Colace 05/14/23: Patient had soapsuds enema yesterday which did not produce a bowel movement. We will go ahead and give a dose of Mag citrate today to see if this will help produce a bowel movement. Continue with bowel regimen 05/15/23: No BM noted over night again. We will give a fleets enema today Start Dulcolax po and schedule Miralax instead of PRN. (2) Acute GI bleeding: Code(s): K92.2 - Gastrointestinal hemorrhage, unspecified Status: Acute Assessment and Plan: 05/13/23: Initial Hgb 11.0/Hct 34.0 which is down from Hgb 12.3/Hct37.8 on 05/12/23. Serial H/H stable x2, discontinued series Continue to trend labs Patient had 1 bright red stool at [facility], no stools since admission Will go ahead and restart aspirin and Plavix given she is stable at this time. Consider GI consult if she starts bleeding again. 05/14/23: Hemoglobin 11.6, hematocrit 36.3. This has remained stable the entire admission Continue to trend labs 05/15/23: H/H remains stable, no signs of bleeding (3) HTN (hypertension): Code(s): I10 - Essential (primary) hypertension Status: Acute Assessment and Plan: 05/13/23: B/P ranging 108/56-135/57 Restarted on Lisinopril 05/14/23: No change to current treatment plan (4) Hyperlipidemia: Code(s): E78.5 - Hyperlipidemia, unspecified Status: Acute Assessment and Plan: 05/13/23: Holding atorvastatin 20mg due to transaminitis 05/14/23: Continue to hold atorvastatin 20 mg today, liver enzymes have just now normalized. Will reassess tomorrow 05/15/23: Restarting atorvastatin Liver enzymes remain stable (5) History of CVA (cerebrovascular accident): Code(s): Z86.73 - Personal history of transient ischemic attack (TIA), and cerebral infarction without residual deficits Status: Chronic Assessment and Plan: 05/13/23: Expressive aphasia and right sided weakness Lives at [facility] 05/14/23: Of note, no change to current treatment plan (6) Depression: Code(s): F32.A - Depression, unspecified Status: Acute Assessment and Plan: 05/13/23: Continue Duloxetine 20 mg 05/14/23: No change to current treatment plan Time Spent With Patient Time with patient: 25 - 35 minutes Subjective Date/time seen: 05/15/23 15:10 Interval history: 05/13/23: This is an 82 year old female with a significant past medical history of CAD, chronic anemia, depression, expressive aphasia, 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 Work up in the hospital includes a CT of the abdomen/pelvis with contrast that revealed moderate to large amount of colonic stool with 6 x1 cm bowels filled rectum which can be seen with constipation and fecal impaction, no other acute intra-abdominal /pelvic process, large sliding-type hiatal hernia. She was started on Protonix, given a dose of zofran and was started on IV fluids. Patient does take plavix and aspirin at home and these were held. Serial H/H remained stable x3. On examination today patient is alert and oriented x2-3. She has expressive aphasia so it has been difficult getting details or history from her. According to the nurse the patient had a bright red stool at [facility] and it was thought to be from a hemorrhoid.? VSS, she is afebrile, and currently on room air. She denies any nausea, vomiting, diarrhea, abdominal pain, shortness of br
[2023-05-15 20:10] VITALS: BP 143/69; PULSE 82; RESP 18; TEMP 36.7; O2SAT 97
[2023-05-16 05:57] LABS: Hematocrit 35.3 % (37.0-47.0); Hemoglobin 11.5 g/dL (12.0-15.0); Mean Corpuscular HGB Conc 32.6 g/dl (32-36); Mean Corpuscular Volume 88.9 fl (80-100); Mean Platelet Volume 8.6 fl (7.4-10.4); Platelet Count Result 189 k/mm3 (150-375); Red Blood Count 3.97 M/mm3 (4.2-5.4); White Blood Count 4.9 K/mm3 (4.5-10.0)
[2023-05-16 06:00] VITALS: BP 165/62; PULSE 65; RESP 14; TEMP 36.5; O2SAT 99
[2023-05-16 06:26] LABS: Alanine Aminotransferase 23 U/L (6-35); Albumin Level 3.1 g/dL (3.5-5.1); Alkaline Phosphatase 131 U/L (38-126); Anion Gap 6 mmol/L (8-16); Aspartate Amino Transferase 31 U/L (14-36); Bilirubin,Total 0.4 mg/dL (0.2-1.3); Blood Urea Nitrogen 11 mg/dL (7-17); Calcium 8.8 mg/dL (8.4-10.2); Carbon Dioxide 23 mmol/L (22-30); Chloride 109 mmol/L (98-107); Estimated CRCL calculation 51 ml/min; Estimated Glomerular Filt Rate > 60; Glucose 96 mg/dL (65-110); Sodium 138 mmol/L (137-145)
--- NOTE | 2023-05-16 08:42 | PM.DS ---
DS: Admitting Diagnosis Discharge Date 05/16/23 Admitting Diagnosis Fecal impaction Acute GI bleed hypertension hyperlipidemia history of CVA Depression DS: Discharge Diagnosis Discharge Diagnosis (1) Fecal impaction: Code(s): K56.41 - Fecal impaction Status: Inactive (2) Acute GI bleeding: Code(s): K92.2 - Gastrointestinal hemorrhage, unspecified Status: Acute (3) HTN (hypertension): Code(s): I10 - Essential (primary) hypertension Status: Acute (4) Hyperlipidemia: Code(s): E78.5 - Hyperlipidemia, unspecified Status: Acute (5) History of CVA (cerebrovascular accident): Code(s): Z86.73 - Personal history of transient ischemic attack (TIA), and cerebral infarction without residual deficits Status: Chronic (6) Depression: Code(s): F32.A - Depression, unspecified Status: Acute DS: Summary Hospital Course Reason for hospitalization: Acute GI bleed Fecal impaction Hospital Course: This is an 82 year old female who presented to the hospital initially for a GI bleed and was found to have fecal impaction. She was recently discharged from the ED for similar presentation on 05/11/23 where they did a manual disimpaction of the rectal vault and then given a soap suds enema with minimal output. The stool that was removed was brown, there was no bright red blood or melanotic stool seen at that time.? Patient was given p.o. laxatives to help facilitate further evacuation and was sent back to [facility]. Prior to that, patient had an EGD done with Dr. Phillips back on 11/29/22 which revealed a gastric ulcer and the sliding type hiatal hernia. Biopsy was sent and a was negative for H. pylori. Work up in the hospital includes a CT of the abdomen/pelvis with contrast that revealed moderate to large amount of colonic stool with 6 x1 cm bowels filled rectum which can be seen with constipation and fecal impaction, no other acute intra-abdominal /pelvic process, large sliding-type hiatal hernia. She was started on Protonix, given a dose of zofran and was started on IV fluids. Patient does take plavix and aspirin at home and these were held. Serial H/H remained stable the entire stay, no signs of bleeding seen. Multiple attempts were made for patient to produce a BM before being discharged. She received a soap suds enema, miralax, dulcolax, colace, and a fleets enema. The patient has had a BM overnight. Labs today include a white blood cell count 4.9, hemoglobin 11.30 0.3 sodium 3 8, potassium 0.0 BUN 11 creatinine 0.131 blood sugars 89-90, liver enzymes are normal. She is stable for discharge back to [facility] at this time. Patient will need to continue a good bowel regimen and follow up with PCP in 1 week. On examination today patient alert and oriented 2-3, she has expressive aphasia, currently lying in the bed, VSS, she is afebrile, currently on room air, she denies any new complaints at this time. Status at Discharge Cognitive/behavioral status at discharge: Alert and oriented x3, expressive aphasia Functional status at discharge: uses cane/walker Overall status at discharge: patient is progressing back to baseline Time Spent with Patient Time attestation: Total time spent providing and/or coordinating discharge services: Time spent: Greater than 30 minutes Exam Narrative: General: In no acute distress, well nourished, expressive aphasia Head: atraumatic, no encephalopathy Eyes: EOMI, PERRLA, sclera clear ENT: moist mucous membranes, nasal passages clear Neck: supple, no JVD, no adenopathy, trachea midline Cardiac: Normal S1 and S2. No murmur, gallops or friction rubs, peripheral pulses intact. Respiratory: Lungs clear to auscultation, no adventitious lung sounds Gastrointestinal: soft, non-distended, mild tenderness, hypoactive bowel sounds. Large BM overnight : voiding without difficulty. Wears depends Extremities:right sided weakness in LUE, RLE. Skin: amarilys
[2023-05-16] MEDS: DOCUSATE SODIUM 100 MG CAPSULE PO (09:23)
[2023-05-16] MEDS: oxyBUTYnin CHLORIDE 5 MG TABLET PO ×2 (09:23→17:18)
[2023-05-16] MEDS: ASPIRIN 81 MG ENTERIC TABLET PO (09:23)
[2023-05-16] MEDS: ATORVASTATIN 20 MG TABLET PO (09:23)
[2023-05-16] MEDS: lisinopriL 10 MG TABLET PO (09:23)
[2023-05-16] MEDS: BISACODYL 5 MG TABLET EC PO (09:23)
[2023-05-16] MEDS: DULoxetine HCL 20 MG CAPSULE.DR PO ×2 (09:24→17:18)
[2023-05-16] MEDS: PANTOPRAZOLE 40 MG TABLET PO (09:24)
[2023-05-16] MEDS: CHOLECALCIFEROL 1,000 UNITS TABLET 2000 UNITS PO (09:24)
[2023-05-16] MEDS: polyethylene glycoL 3350 17 GM POWD.PACK PO (09:24)
[2023-05-16] MEDS: MIRTAZAPINE 15 MG TABLET PO (09:24)
[2023-05-16] MEDS: CLOPIDOGREL BISULFATE 75 MG TABLET PO (09:29)
[2023-05-16 11:42] LABS: Influenza A QL RT-PCR Negative (Negative); Influenza B QL RT-PCR Negative (Negative); RSV RNA, RT-PCR Negative (Negative); SARS-CoV-2 RNA PCR Negative (Negative)
[2023-05-16 13:51] VITALS: BP 160/66; PULSE 65; RESP 14; TEMP 36.6; O2SAT 98
== END 2023-05-16 17:45 | DRG 378 ==
LOC: ANHED 05-13 02:03 → ANH3MED 05-13 03:18
PROVIDERS: Admitting Provider Internal Medicine; Emergency Provider Emergency Medicine; PCP Family Medicine; Visit Provider Nurse Practitioner Acute Care
DX: K92.2 Gastrointestinal hemorrhage, unspecified (principal); I69.351 Hemiplegia and hemiparesis following cerebral infarction affecting right dominant side; K56.41 Fecal impaction; I69.320 Aphasia following cerebral infarction; E78.5 Hyperlipidemia, unspecified; F32.A Depression, unspecified; I10 Essential (primary) hypertension; K44.9 Diaphragmatic hernia without obstruction or gangrene; M19.90 Unspecified osteoarthritis, unspecified site; D64.9 Anemia, unspecified; I77.9 Disorder of arteries and arterioles, unspecified; I25.10 Atherosclerotic heart disease of native coronary artery without angina pectoris; Z79.82 Long term (current) use of aspirin; Z98.49 Cataract extraction status, unspecified eye; Z90.710 Acquired absence of both cervix and uterus; Z20.822 Contact with and (suspected) exposure to COVID-19
CPT/HCPCS: 36415; 74177; 80053; 85014; 85018; 85025; 85027; 85610; 85730; 86850; 86900; 86901; 87637; 96361; 96374; 97161; 97165; 99285; A9270; C9113; G0378; J7030; Q9967

== ENCOUNTER 2023-06-05 10:41 | Emergency (ER) | payer MEDICARE, SELFPAY ==
[2023-06-05] VITALS (9 sets, daily range): BP systolic 109–136; BP diastolic 45–92; PULSE 63–77; RESP 9–24; TEMP 36.7; O2SAT 97–100
--- NOTE | ~2023-06-05 | US_ITS ---
EXAMINATION: US pelvic complete DATE: 06/05/2023 14:07 INDICATION: Abnormal vaginal bleeding Comparison:No prior studies for comparison. TECHNIQUE: Multiple transabdominal and endovaginal sonographic images of the pelvis performed. FINDINGS: The uterus measures 6.8 x 3.9 x 4.1 cm. There is trace fluid in the endometrium. The endome trial complex measures 3 mm. The ovaries are not visualized, likely atrophic. There is no free fluid in the pelvis. There are no abnormal masses seen on either side. IMPRESSION: 1. Trace fluid in the endometrium, nonspecific. Otherwise, unremarkable pelvic ultrasound. Reviewed, dictated and finalized at location A. [facility]
[2023-06-05 11:33] LABS: Basophils Absolute Auto 0.1 K/mm3 (0.0-0.1); Basophils Percent Auto 1.1 % (0.2-1.2); Eosinophils Absolute Auto 0.7 K/mm3 (0-0.3); Eosinophils Percent Auto 10.5 % (0-4.4); Hematocrit 39.4 % (37.0-47.0); Hemoglobin 12.5 g/dL (12.0-15.0); Immature Granulocyte Absolute 0.01 K/mm3 (0.00-0.031); Immature Granulocyte Percent A 0.2 % (0-0.5); Lymphocytes Absolute Auto 1.21 K/mm3 (0.9-3.2); Lymphocytes Percent Auto 19.5 % (18.3-44.2); Mean Corpuscular HGB Conc 31.7 g/dl (32-36); Mean Corpuscular Hemoglobin 28.8 pg (26-34); Mean Corpuscular Volume 90.8 fl (80-100); Mean Platelet Volume 8.9 fl (7.4-10.4); Monocytes Absolute Auto 0.6 K/mm3 (0.1-0.6); Monocytes Percent Auto 9.2 % (2.6-8.5); Neutrophils Absolute Auto 3.7 K/mm3 (1.3-6.7); Neutrophils Percent Auto 59.5 % (45.5-73.1); Platelet Count Result 253 k/mm3 (150-375); Red Blood Count 4.34 M/mm3 (4.2-5.4); Red Cell Distribution Width 13.7 % (11.5-14.5); White Blood Count 6.2 K/mm3 (4.5-10.0)
[2023-06-05 11:44] LABS: INR 1.1; Prothrombin Time 14.5 Seconds (11.1-14.7)
[2023-06-05 11:45] LABS: Partial Thromboplastin Time 33.1 SECONDS (22.3-36.8)
[2023-06-05 11:55] LABS: Alanine Aminotransferase 27 U/L (6-35); Albumin Level 4.1 g/dL (3.5-5.1); Alkaline Phosphatase 143 U/L (38-126); Anion Gap 7 mmol/L (8-16); Aspartate Amino Transferase 43 U/L (14-36); Bilirubin,Total 0.4 mg/dL (0.2-1.3); Blood Urea Nitrogen 26 mg/dL (7-17); Calcium 9.6 mg/dL (8.4-10.2); Carbon Dioxide 26 mmol/L (22-30); Chloride 107 mmol/L (98-107); Estimated CRCL calculation 40 ml/min; Estimated Glomerular Filt Rate > 60; Glucose 88 mg/dL (65-110); Lipase 47 U/L (23-300); Potassium 4.6 mmol/L (3.4-5.0); Sodium 140 mmol/L (137-145)
[2023-06-05 12:34] LABS: Appearance Urine Clear (Clear); Bacteria Urine 4+ /hpf; Bilirubin Urine Negative (Negative); Blood Urine 2+ (Negative); Color Urine Yellow (Yellow); Glucose Urine UA Negative (Negative); Ketones Urine Negative (Negative); Leukocyte Esterase Ur 2+ LEU/UL (Negative); Nitrate Urine Positive (Negative); Non Pathogenic Casts 0-2; Protein Urine Negative (Negative); Specific Grav Ur 1.018 (1.001-1.035); Squamous Epithelial Cell Urine None seen /hpf (Few); Urobilinogen Urine 0.2 mg/dL (<2.0); pH Urine 6.5 (5.0-9.0)
[2023-06-05 12:47] LABS: Add Urine Microscopic? YES
--- NOTE | 2023-06-05 14:36 | ED.GENADULT ---
HPI - General Adult General Chief complaint: Abdominal Pain Stated complaint: abd pain Time Seen by Provider: 06/05/23 11:04 Source: family, RN notes reviewed and old records reviewed Mode of arrival: wheelchair History of Present Illness HPI narrative: This is an 82 year old female with history of CVA with right hemiplegia who presents for evaluation of vaginal bleeding. Her son is providing history at bedside because patient has aphasia. He states patient has history of GI bleeding and constipation. She has been having regular bowel movements and no rectal bleeding since her last discharge. He states patient reported vaginal pain for weeks and nursing today called him stating they saw vaginal bleeding today. Denies fever, nausea, vomiting or abdominal pain Related Data Home Medications Medication Instructions Recorded Confirmed acetaminophen 325 mg tablet 650 mg PO ONCE PRN Pain 10/01/21 05/13/23 aspirin 81 mg tablet,delayed 81 mg PO DAILY 10/01/21 05/13/23 release atorvastatin 20 mg tablet 20 mg PO DAILY 10/01/21 05/13/23 clopidogrel 75 mg tablet 75 mg PO DAILY 10/01/21 05/13/23 duloxetine 20 mg capsule,delayed 20 mg PO BID 10/01/21 05/13/23 release lisinopril 10 mg tablet 10 mg PO DAILY 10/01/21 05/13/23 mirtazapine 15 mg tablet 15 mg PO DAILY 10/01/21 05/13/23 ohwdfpdr-heam-rkms 8 mg-folic 400 1 tablet PO DAILY 10/01/21 05/13/23 mcg-K 50 mcg-lutein 300 mcg tablet (Centrum Silver Women) oxybutynin chloride 5 mg tablet 5 mg PO BID 10/01/21 05/13/23 sodium chloride 1 gram tablet 1,000 mg PO BID 10/01/21 05/13/23 cholecalciferol (vitamin D3) 50 50 mcg PO DAILY 11/26/22 05/13/23 mcg (2,000 unit) capsule epinephrine 0.3 mg/0.3 mL 0.3 mg IM ONCE 11/26/22 05/13/23 injection, auto-injector Allergies Allergy/AdvReac Type Severity Reaction Status Date / Time codeine Allergy Other Verified 06/05/23 11:17 Sulfa (Sulfonamide Allergy Other Verified 06/05/23 11:17 Antibiotics) Review of Systems Review of Systems: ROS unobtainable: Yes other (aphasia) PMFSH Past Medical History Medical History Carotid artery disease Chronic anemia Depression Expressive aphasia GI bleed History of CVA (cerebrovascular accident) Right side effect HTN (hypertension) Hyperlipidemia Osteoarthritis Surgical History Surgical History H/O cataract extraction H/O: hysterectomy Family History Family History Unknown No problems noted. Social History Social History Social History: The patient is she resides at [place]. She has 2 children. 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 Her son otilio is her durable power commonwealth attorney for healthcare. Code status DNR Smoking status: Unknown if ever smoked Alcohol intake: never Substance use: never Substance use type: does not use Lack of Transportation: No Lack of Food: Never True Current Housing: I Have Housing Concerned About Future Housing: No Difficulty Paying Gas/Electric Bills: No Difficulty Paying for Meds: No Currently Unemployed: No Education: Don't Know Difficulty w/ Childcare or Family Care: No Spiritual care concerns: No Exam Const: General: no acute distress and alert Nutritional Appearance: well nourished HENMT: Head: normal to inspection Eyes: EOM: EOMs intact bilaterally Chest: Chest palpation & inspection: normal inspection of the chest Resp: Effort & Inspection: normal respiratory effort Auscultation: clear to auscultation bilaterally Cardio: Rate: regular rate Rhythm: regular rhythm Heart sounds: Murmur heart sound present GI: GI Palp: Yes Soft to palpation, No Tenderness to palpation present (GI), No Guarding due to palpation present (GI) and No Rigid due t
[2023-06-05] MEDS: CEPHALEXIN 500 MG CAPSULE PO (15:11)
== END 2023-06-05 15:22 ==
PROVIDERS: Emergency Provider General Practice; PCP Family Medicine
DX: N93.9 Abnormal uterine and vaginal bleeding, unspecified (principal); N30.01 Acute cystitis with hematuria; I69.320 Aphasia following cerebral infarction; Z79.82 Long term (current) use of aspirin; I10 Essential (primary) hypertension; E78.5 Hyperlipidemia, unspecified; I65.29 Occlusion and stenosis of unspecified carotid artery
CPT/HCPCS: 36415; 76856; 80053; 81001; 83690; 85025; 85610; 85730; 87077; 87086; 87186; 99284; A9270

== ENCOUNTER 2023-08-29 00:58 | Day surgery (SDC) | payer MEDICARE, SELFPAY ==
--- NOTE | 2023-08-19 09:12 | PC.NURSE ---
PT'S SON CARLA CONTACTED, STATES WILL BE TRANSPORTING PT FOR SURGERY, SON INFORMED OF PT'S TIME/DATE OF SURGERY AND TIME OF ARRIVAL - UNDERSTANDING VOICED
[2023-08-22 07:59] VITALS: BMI 28.9
--- NOTE | 2023-08-22 08:28 | PC.NURSE ---
PRE-OP INSTRUCTIONS, PLEASE READ CAREFULLY Report to the Outpatient Waiting Room, entrance under the green pavilion located off [facility], at time _0800_ on date _08/29/23_. Planned Procedure Time: _1000_. Time changes happen often and if your time is changed the preop area will call you the afternoon before. - You and your visitor will be asked to self-screen and do not enter if you have any COVID symptoms. - A mask is optional within the hospital at this time. Patients may have clear liquids (water, carbonated beverages, clear teas, apple juice) until 3 hours prior to surgery (0700 AM) with a maximum of 20 ounces. - No food from midnight until time of surgery Take the following medications with a SIP of water the morning of surgery: _DULOXETINE, MIRTAZAPINE, & TYLENOL IF NEEDED _ DO NOT STOP ANY OF YOUR OTHER PRESCRIPTION MEDICATIONS PRIOR TO SURGERY ?EXCEPT THE FOLLOWING Medications to discontinue - _ASPIRIN & CLOPIDOGREL PER DR. BAEZ'S INSTRUCTIONS, Date to take last dose CALL OFFICE IF NEEDED [phone]_ Medications to discontinue per ANESTHESIA -_MULTIVITAMIN 3 DAYS PRIOR TO SURGERY, Date to take last dose 08/25/23_ Please no make-up, nail marshallese, hairspray, perfume, deodorant, or body powder the day of surgery. No jewelry (including any body piercings) or valuables the day of surgery, leave them at home. Please take a shower or bath the night before, or the morning of, surgery with an antibacterial soap. Wear comfortable, loose fitting clothing. - Jewelry must be removed prior to entering the operating room. Rings and piercings that are not removed may be cut off. - The hospital will not accept responsibility for valuables. - Please leave all valuables, including medications, at home the day of surgery. If you are going home after surgery, a licensed combine driver must drive you home. - NO public transportation without another adult if you receive anesthesia. - We recommend that an adult stay with you for 24 hours following discharge. - We also recommend that you do not drive, make important decision, drink alcoholic beverages, or take any drugs that were not prescribed by your health care provider for at least 24 hours after your discharge time. Follow any additional instructions given to you from your surgeon. If you or anyone in your household have experienced Covid symptoms in the past week, please notify your surgeon or the nurse liaison at the phone number below for possible testing. Telephone instructions given/FAXED to _[facility]_and asked if any additional questions and then verbalized understanding. Patient advised to call surgeon office or pre surgery nurse liaison [phone] if any additional questions.
[2023-08-29] MEDS: ACETAMINOPHEN 500 MG TABLET 1000 MG PO (08:34)
[2023-08-29 09:01] VITALS: BP 114/53; PULSE 74; RESP 16; TEMP 36.3; O2SAT 99
[2023-08-29] MEDS: LACTATED RINGERS 1,000 ML 30 ML IV CONT (09:02)
--- NOTE | 2023-08-29 09:02 | WPDANESEPPF ---
Anes - Initial Pre Proc Eval Procedure: Operation Date: 08/29/23 09:45 Proposed Procedures p Hysteroscopy Dilation and Curettage - Kendra Palomares MD Date/Time: 08/29/23 09:02 Surgeon: Kendra Palomares MD Pre Op Diagnosis: post menopausal bleeding Patient Data Age: 82 Gender: F Height: 1.52 m Weight: 64.1 kg Last Vital Signs Temp 36.3 C L 08/29/23 09:01 Pulse 74 08/29/23 09:01 Resp 16 08/29/23 09:01 BP 114/53 L 08/29/23 09:01 Pulse Ox 99 08/29/23 09:01 O2 Del Method Room Air 08/29/23 09:01 Allergies Allergy/AdvReac Type Severity Reaction Status Date / Time codeine Allergy Other-REACTON Verified 08/22/23 07:42 NOT DOCUMENTED ON [place] DOCUMENTS Sulfa (Sulfonamide Allergy Other-REACTON Verified 08/22/23 07:42 Antibiotics) NOT DOCUMENTED ON [place] DOCUMENTS Home Medications Medication Instructions Recorded Confirmed Type acetaminophen 325 mg tablet 650 mg PO ONCE PRN Pain 10/01/21 08/22/23 History aspirin 81 mg tablet,delayed 81 mg PO DAILY 10/01/21 08/22/23 History release atorvastatin 20 mg tablet 20 mg PO DAILY 10/01/21 08/22/23 History clopidogrel 75 mg tablet 75 mg PO DAILY 10/01/21 08/22/23 History duloxetine 20 mg capsule,delayed 20 mg PO BID 10/01/21 08/22/23 History release lisinopril 10 mg tablet 10 mg PO DAILY 10/01/21 08/22/23 History mirtazapine 15 mg tablet 15 mg PO DAILY 10/01/21 08/22/23 History mfpfplbe-gynm-fhif 8 mg-folic 400 1 tablet PO DAILY 10/01/21 08/22/23 History mcg-K 50 mcg-lutein 300 mcg tablet (Centrum Silver Women) oxybutynin chloride 5 mg tablet 5 mg PO BID 10/01/21 08/22/23 History sodium chloride 1 gram tablet 1,000 mg PO BID 10/01/21 08/22/23 History cholecalciferol (vitamin D3) 50 50 mcg PO DAILY 11/26/22 08/22/23 History mcg (2,000 unit) capsule epinephrine 0.3 mg/0.3 mL 0.3 mg IM ONCE 11/26/22 08/22/23 History injection, auto-injector pantoprazole 40 mg tablet,delayed 40 mg PO Q12HR #60 tabs 12/01/22 08/22/23 Rx release docusate sodium 100 mg capsule 100 mg PO Q12HR constipation #30 05/16/23 08/22/23 Rx caps polyethylene glycol 3350 17 gram 17 g PO QAM constipation #30 ea 05/16/23 08/22/23 Rx oral powder packet (Miralax) dicyclomine 10 mg capsule 10 mg PO QID 08/22/23 08/22/23 History lidocaine 4 % topical patch 1 patch topical BID PRN Pain 08/22/23 08/22/23 History (Lidocaine Pain Relief) loperamide 2 mg capsule 2 mg DAILY PRN Diarrhea 08/22/23 08/22/23 History sennosides 8.6 mg tablet (senna) 8.6 mg PO DAILY PRN Constipation 08/22/23 08/22/23 History sodium chloride 0.65 % nasal spray 2 spray intranasal Q4H PRN 08/22/23 08/22/23 History aerosol (Deep Sea Nasal) Congestion Patient hx anesthesia problems: none Family hx anesthesia problems: none Results Review: All pre-operative results and documents have been reviewed as part of the pre-operative evaluation. [facility] Past Medical History Medical History Carotid artery disease Chronic anemia Depression Expressive aphasia GI bleed History of CVA (cerebrovascular accident) Right side effect HTN (hypertension) Hyperlipidemia Osteoarthritis Surgical History Surgical History H/O cataract extraction H/O: hysterectomy Family History Family History Unknown No problems noted. Social History Social History Social History: The patient is she resides at [place]. She has 2 children. 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 Her son otilio is her durable power workers compensation defense attorney for healthcare. Code status DNR Smoking status: Unknown if ever smoked Alcohol intake: never Substance use: never Substance use type: does not use Lack of Transportation: No Lack of
--- NOTE | 2023-08-29 09:11 | WPDHPUPDATE1 ---
History and Physical Update Update Date/Time: 08/29/23 09:11 History and Physical has been reviewed, including an updated exam of the patient. There are NO changes in the patient's condition. Risks, benefits, and alternatives have been discussed and questions answered. Patient agrees to proceed with procedure.
--- NOTE | 2023-08-29 09:11 | PM.HPGS ---
History of Present Illness History of Present Illness Consent: Risks, benefits, and alternatives have been discussed and questions answered. Patient agrees to proceed with procedure. Chief complaint: post menopausal bleeding Narrative: Dana Francois is a 82 year old female with an episode of bright red bleeding with large clots. Per the nursing and staff they brought the patient to the emergency room. Patient with a very difficult exam due to severe atrophy. No obvious blood was noted at the time of her exam in the office July 20, 2023. Patient's son called on 07/26 and reports the patient had a 2nd episode of vaginal bleeding. The patient's pelvic ultrasound in May of 2023 at the emergency room was normal. Due to the 2nd episode of bleeding, it was recommended to proceed with D&C hysteroscopy. Risks of infection, bleeding, and perforation are reviewed with the patient's son and patient. The patient's son gives consent to proceed. He is the patient's proxy as she is mostly nonverbal status post stroke. Review of Systems Review of Systems: not repeated day of surgery; patient states no changes in status [facility] Past Medical History Medical History (Updated 08/29/23 @ 09:17 by Kendra Palomares MD) Carotid artery disease Chronic anemia Depression Expressive aphasia GI bleed History of CVA (cerebrovascular accident) Right side effect HTN (hypertension) Hyperlipidemia (normal spontaneous vaginal delivery) term x2 Osteoarthritis Surgical History Surgical History (Updated 08/29/23 @ 09:15 by Kendra Palomares MD) H/O cataract extraction H/O: hysterectomy History of bilateral knee replacement Family History Family History Unknown No problems noted. Social History Social History Social History: The patient is she resides at [place]. She has 2 children. 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 Her son otilio is her durable power fryer line helper for healthcare. Code status DNR Smoking status: Unknown if ever smoked Alcohol intake: never Substance use: never Substance use type: does not use Lack of Transportation: No Lack of Food: Never True Current Housing: I Have Housing Concerned About Future Housing: No Difficulty Paying Gas/Electric Bills: No Difficulty Paying for Meds: No Currently Unemployed: No Education: Don't Know Difficulty w/ Childcare or Family Care: No Living arrangements: assisted living Additional living arrangements comments: [facility] PHONE [phone] Spiritual care concerns: No Meds Home Medications and Allergies Home Medications Medication Instructions Recorded Confirmed Type acetaminophen 325 mg tablet 650 mg PO ONCE PRN Pain 10/01/21 08/22/23 History aspirin 81 mg tablet,delayed 81 mg PO DAILY 10/01/21 08/22/23 History release atorvastatin 20 mg tablet 20 mg PO DAILY 10/01/21 08/22/23 History clopidogrel 75 mg tablet 75 mg PO DAILY 10/01/21 08/22/23 History duloxetine 20 mg capsule,delayed 20 mg PO BID 10/01/21 08/22/23 History release lisinopril 10 mg tablet 10 mg PO DAILY 10/01/21 08/22/23 History mirtazapine 15 mg tablet 15 mg PO DAILY 10/01/21 08/22/23 History rxpcolgl-njnc-nqbm 8 mg-folic 400 1 tablet PO DAILY 10/01/21 08/22/23 History mcg-K 50 mcg-lutein 300 mcg tablet (Centrum Silver Women) oxybutynin chloride 5 mg tablet 5 mg PO BID 10/01/21 08/22/23 History sodium chloride 1 gram tablet 1,000 mg PO BID 10/01/21 08/22/23 History cholecalciferol (vitamin D3) 50 50 mcg PO DAILY 11/26/22 08/22/23 History mcg (2,000 unit) capsule epinephrine 0.3 mg/0.3 mL 0.3 mg IM ONCE 11/26/22 08/22/23 History injection, auto-injector pantoprazole 40 mg tablet,delayed 40 mg PO Q12HR #60 tabs 12/01/22 08/22/23 Rx release docusate sodium 100 mg capsule 100 mg PO Q12HR
[2023-08-29 09:44] VITALS: BP 91/47; PULSE 67; RESP 16; O2SAT 95
--- NOTE | 2023-08-29 09:46 | P.OP_ITS ---
Procedure Note - Detailed Date of Procedure 08/29/23 Pre-op Diagnosis post menopausal bleeding Post-op Diagnosis Same Procedure Performed D and C hysteroscopy Surgeon Kendra Palomares MD Anesthesia MAC Findings external cervical stenosis; uterus sounds to 8cm and appears grossly atrophic Description of Procedure The patient is taken to the operating and placed under anesthesia in the dorsal lithotomy position. She was prepped and draped in the usual sterile fashion. [place] speculum is placed and cervix grasped on the anterior lip with a tenaculum. The external os is stenotic. The Hegar 4mm dilator was used to enter the endometrial canal the uterus is then able to be sounded to 8cm. The diagnostic hysteroscope was placed and with no abnormalities noted it is removed. The OO sharp curette is used to curette the endometrium until a good uterine cry was noted in all areas. Minimal if any material was obtained consistent with the severe atrophy noted. All instruments were then removed. Sponge, needle, and instrument counts are correct per the OR staff. The patient was taken to recovery in stable condition. Estimated Blood Loss 5 Drains No Packing No Pathology Yes ( Endometrial curettings) Complications No immediate complications Condition Stable Disposition PACU
[2023-08-29 10:10] VITALS: BP 90/42; PULSE 59; RESP 16; O2SAT 93
[2023-08-29 10:40] VITALS: BP 94/50; PULSE 57; RESP 16; O2SAT 94
== END 2023-08-29 10:45 | disposition home or self-care (01) ==
PROVIDERS: PCP Family Medicine; Visit Provider Obstetrics & Gynecology Gynecology
PROC: 0U5B8ZZ Destruction of Endometrium, Via Natural or Artificial Opening Endoscopic (ICD-10-PCS; CPT 58563; principal; 2023-08-29 09:45)
DX: N95.0 Postmenopausal bleeding (principal); I10 Essential (primary) hypertension; E78.5 Hyperlipidemia, unspecified; D64.9 Anemia, unspecified; F32.A Depression, unspecified; Z79.82 Long term (current) use of aspirin; Z79.02 Long term (current) use of antithrombotics/antiplatelets; Z98.890 Other specified postprocedural states; Z86.79 Personal history of other diseases of the circulatory system
CPT/HCPCS: 58558; 88305; A9270; J2704; J3010; J7120

== ENCOUNTER 2024-07-03 22:06 | Emergency (ER) | payer MEDICARE, SELFPAY ==
--- NOTE | ~2024-07-03 | CT_ITS ---
History: Ground-level fall PROCEDURE: CT head without contrast. COMPARISON: None TECHNIQUE: Axial imaging of the head performed from the skull base to the vertex without IV contrast. Sagittal a nd coronal reformations obtained. DLP: 605 mGy-cm FINDINGS: The ventricles are enlarged. The dilatation of the ventricles is proportional to the degree of sulcal prominence, not uncommon in the senescent brain. Decreased attenuation is identified within the periventricular white matter, likely secondary to micr ovascular ischemic disease, in a patient of this age. Encephalomalacia and gliosis is identified within the distribution of the left middle cerebral artery , suggesting prior cerebral infarction. There is no mass, mass effect or midline shift. There is no abnormal extra-axial fluid collection or intracranial hemorrhage. Visualized paranasal sinuses are clear. The mastoid air cells are well aerated. No acute displaced fractures within the overlying cranium. Impression: Prior cerebral infarction. No acute intracranial hemorrhage or suspicious mass effect. Reviewed, dictated and finalized at location A. [facility] Impression: Prior cerebral infarction. No acute intracranial hemorrhage or suspicious mass effect.
[2024-07-03 22:06] VITALS: BP 132/90; PULSE 85; RESP 15; TEMP 36.4; O2SAT 100
--- NOTE | 2024-07-03 22:33 | PC.NURSE ---
Patient to ct scan
[2024-07-03 22:45] VITALS: BP 134/60; PULSE 80; RESP 18; O2SAT 99
--- NOTE | 2024-07-03 23:03 | ED.FALL ---
HPI - Fall General Chief Complaint: Fall Stated Complaint: FALL; HEAD INJURY Time Seen by Provider: 07/03/24 22:54 History of Present Illness HPI Narrative: Patient is an 83-year-old female who presents emergency department this evening after a ground level fall that occurred at her nursing facility, [facility]. Patient fell backward hitting the back of her head while transferring from her wheelchair. The fall was unwitnessed. Person who is present at bedside, patient has had a stroke in 2019 and has right-sided deficits secondary to this. Patient is unable to move her right upper extremity in can minimally move her right lower extremity. Patient is able to ambulate for her by herself from bed to wheelchair and back. Patient is on a blood thinner, clopidogrel, she denies any loss of consciousness. Patient is also aphasic secondary to her stroke and can only answer questions in yes or no. No additional concerns at this time. Related Data Home Medications ?Medication ?Instructions ?Recorded ?Confirmed ?Last Taken ?Type acetaminophen 325 mg tablet 650 mg PO ONCE PRN Pain 10/01/21 08/22/23 Unknown History aspirin 81 mg tablet,delayed 81 mg PO DAILY 10/01/21 08/22/23 Unknown History release atorvastatin 20 mg tablet 20 mg PO DAILY 10/01/21 08/22/23 Unknown History clopidogrel 75 mg tablet 75 mg PO DAILY 10/01/21 08/22/23 Unknown History duloxetine 20 mg capsule,delayed 20 mg PO BID 10/01/21 08/22/23 Unknown History release lisinopril 10 mg tablet 10 mg PO DAILY 10/01/21 08/22/23 Unknown History mirtazapine 15 mg tablet 15 mg PO DAILY 10/01/21 08/22/23 Unknown History rkuneklw-axzo-rptl 8 mg-folic 400 1 tablet PO DAILY 10/01/21 08/22/23 Unknown History mcg-K 50 mcg-lutein 300 mcg tablet (Centrum Silver Women) oxybutynin chloride 5 mg tablet 5 mg PO BID 10/01/21 08/22/23 Unknown History sodium chloride 1 gram tablet 1,000 mg PO BID 10/01/21 08/22/23 Unknown History cholecalciferol (vitamin D3) 50 50 mcg PO DAILY 11/26/22 08/22/23 Unknown History mcg (2,000 unit) capsule epinephrine 0.3 mg/0.3 mL 0.3 mg IM ONCE 11/26/22 08/22/23 Unknown History injection, auto-injector dicyclomine 10 mg capsule 10 mg PO QID 08/22/23 08/22/23 Unknown History lidocaine 4 % topical patch 1 patch topical BID PRN Pain 08/22/23 08/22/23 Unknown History (Lidocaine Pain Relief) loperamide 2 mg capsule 2 mg DAILY PRN Diarrhea 08/22/23 08/22/23 Unknown History sennosides 8.6 mg tablet (senna) 8.6 mg PO DAILY PRN Constipation 08/22/23 08/22/23 Unknown History sodium chloride 0.65 % nasal spray 2 spray intranasal Q4H PRN 08/22/23 08/22/23 Unknown History aerosol (Deep Sea Nasal) Congestion Allergies Allergy/AdvReac Type Severity Reaction Status Date / Time codeine Allergy Other-REACTON Verified 07/03/24 22:14 NOT DOCUMENTED ON MT DOCUMENTS Sulfa (Sulfonamide Allergy Other-REACTON Verified 07/03/24 22:14 Antibiotics) NOT DOCUMENTED ON MT DOCUMENTS Review of Systems Review of Systems: All systems are reviewed and are negative unless stated otherwise in the HPI. [facility] Past Medical History Medical History (normal spontaneous vaginal delivery) term x2 Chronic anemia Carotid artery disease Depression Expressive aphasia Osteoarthritis HTN (hypertension) Hyperlipidemia History of CVA (cerebrovascular accident) Right side effect GI bleed Surgical History Surgical History History of bilateral knee replacement H/O cataract extraction H/O: hysterectomy Family History Family History Unknown No problems noted. Social History Social History Social History: The patient is she resides at [facility]. She has 2 children. 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 Her son otilio is her durable power state attorney for healthcare. Code status DNR Smoking status: Unknown if ever smoked Alcohol intake: never Substance use: never Substance use type: does not use Lack of Transportation: No Lack of Food: Never True Current Housing: I Have Housing Concerned About Future Housing: No Difficulty Paying Gas/Electric Bills: No Difficulty Paying for Meds: No Currently Unemployed: No Education: Don't Know Difficulty w/ Childcare or Family Care: No Living arrangements: assisted living Additional living arrangements comments: [facility] PHONE [phone] Spiritual care concerns: No Exam Narrative: General: Alert, awake, afebrile, in no acute distress. HEENT: PERRL, no rhinorrhea, no post nasal drip, oropharynx clear, small soft tissue swelling to the back of the head, no active bleeding. Neck: Trachea midline, no JVD, no lymphadenopathy. Cardiovascular: Regular rate and rhythm, no murmurs, rubs or gallops, no peripheral edema. Respiratory: Clear to auscultation bilaterally, no tachypnea, no wheezing, no rhonchi, no rubs, no respiratory distress. Abdomen: Soft, nontender, nondistended, no rebound, no guarding, no peritoneal signs. Musculoskeletal: No joint swelling or deformity, normal muscle tone. Skin: No rashes or petechia, no signs of infection. Psychiatric: Alert and oriented, normal behavior and judgment for situation. Neurological: Alert and oriented to person, place, and time. Follows all commands. Right-sided weakness secondary to history of stroke, speech is clear and fluent. Course Vital Signs Vital signs: Vital Signs Temperature 97.5 F L 07/03/24 22:06 Pulse Rate 85 07/03/24 22:06 Respiratory Rate 15 07/03/24 22:06 Blood Pressure 132/90 07/03/24 22:06 Pulse Oximetry 100 07/03/24 22:06 Oxygen Delivery Room Air 07/03/24 22:06 Temperature 97.5 F L 07/03/24 22:06 Pulse Rate 80 07/03/24 23:15 Respiratory Rate 18 07/03/24 23:15 Blood Pressure 117/64 07/03/24 23:15 Pulse Oximetry 100 07/03/24 23:15 Oxygen Delivery Room Air 07/03/24 22:06 MDM - Fall MDM Narrative Medical decision making narrative: The patient was evaluated by myself in the emergency department. History is obtained from patient who is an independent historian along with son present at bedside and physical exam was performed. External medical records were reviewed at this time. Imaging studies obtained included CT brain without IV contrast which was independently interpreted by me revealing no acute process, which is pending final radiology interpretation. Differential diagnosis considerations include fractures, dislocations, intracranial hemorrhage. Comorbidities impacting this visit include clopidogrel use. I have evaluated and discussed social determinants of health with the patient that could potentially impact subsequent diagnosis and treatment plans. On repeat assessment of the patient, reevaluation revealed that the patient is doing well and is in no acute distress. Patient symptoms have improved since she arrived to our emergency department. Repeat vital signs were all reviewed and noted to be stable. Differential diagnosis and treatment plan were discussed with the patient at bedside. Patient agrees with discussion and after shared medical decision making agrees with discharge. All questions were answered to the patient's satisfaction. Patient will follow up with her PCP in 3-5 days. Patient was provided with strict return precautions and instructed to return to the emergency department if any new or worsening symptoms develop. The patient was discharged in stable condition. Discharge Plan Discharge Clinical Impression: Fall from ground level, Head injury Patient Disposition: SNF Condition: Stable Instructions: Fall Prevention for Older Adults (ED), Head Injury (ED) Additional Instructions: Please follow-up with your family doctor within the next 3-5 days. Return to the emergency department if any new or worsening symptoms develop. Patient Language: Surinamese Prescriptions: No Action acetaminophen 325 mg Tablet 650 mg PO ONCE PRN (Reason: Pain) atorvastatin 20 mg Tablet 20 mg PO DAILY sodium chloride 1 gram Tablet 1,000 mg PO BID clopidogrel 75 mg Tablet 75 mg PO DAILY aspirin 81 mg Tablet,Delayed Release (Dr/Ec) 81 mg PO DAILY lisinopril 10 mg Tablet 10 mg PO DAILY mirtazapine 15 mg Tablet 15 mg PO DAILY oxybutynin chloride 5 mg Tablet 5 mg PO BID duloxetine 20 mg Capsule,Delayed Release(Dr/Ec) 20 mg PO BID Centrum Silver Women 8 mg iron-400 mcg-300 mcg Tablet 1 tablet PO DAILY epinephrine 0.3 mg/0.3 mL Auto-Injector 0.3 mg IM ONCE Rx Instructions: as a single dose; may repeat once cholecalciferol (vitamin D3) 50 mcg (2,000 unit) Capsule 50 mcg PO DAILY pantoprazole 40 mg Tablet,Delayed Release (Dr/Ec) 40 mg PO Q12HR Qty: 60 0RF docusate sodium 100 mg Capsule 100 mg PO Q12HR Qty: 30 0RF polyethylene glycol 3350 [Miralax] 17 gram Powder In Packet 17 g PO QAM Qty: 30 0RF sennosides [senna] 8.6 mg Tablet 8.6 mg PO DAILY PRN (Reason: Constipation) lidocaine [Lidocaine Pain Relief] 4 % Adhesive Patch,Medicated 1 patch TOPICAL BID PRN (Reason: Pain) loperamide 2 mg Capsule 2 mg DAILY PRN (Reason: Diarrhea) dicyclomine 10 mg Capsule 10 mg PO QID Deep Sea Nasal 0.65 % Aerosol,[place] 2 spray INTRANASAL Q4H PRN (Reason: Congestion) Follow-up/Referrals: Fabio Bundy MD [Primary Care Provider] - 3 Days Time of Disposition: 23:04
[2024-07-03 23:15] VITALS: BP 117/64; PULSE 80; RESP 18; O2SAT 100
== END 2024-07-03 23:32 ==
LOC: ANHED 23:17
PROVIDERS: Emergency Provider Emergency Medicine; PCP Family Medicine
DX: S09.90XA Unspecified injury of head, initial encounter (principal); I69.320 Aphasia following cerebral infarction; I69.351 Hemiplegia and hemiparesis following cerebral infarction affecting right dominant side; I10 Essential (primary) hypertension; I25.10 Atherosclerotic heart disease of native coronary artery without angina pectoris; E78.5 Hyperlipidemia, unspecified; D64.9 Anemia, unspecified; M19.90 Unspecified osteoarthritis, unspecified site; F32.A Depression, unspecified; Z66 Do not resuscitate; Z96.653 Presence of artificial knee joint, bilateral; Z98.49 Cataract extraction status, unspecified eye; Z90.710 Acquired absence of both cervix and uterus; W18.39XA Other fall on same level, initial encounter
CPT/HCPCS: 70450; 99284

== ENCOUNTER 2024-09-10 19:32 | Emergency (ER) | payer MEDICARE, SELFPAY ==
--- NOTE | ~2024-09-10 | XR_ITS ---
CHEST RADIOGRAPH CLINICAL HISTORY: fall . COMPARISON: Reference is made to a partial examination of the chest dated 11/26/2022 TECHNIQUE: Single portable view of the chest. FINDINGS Large hiatal hernia persists. Examination is somewhat limited secondary to positioning. Prominence of the right hilum and superior mediastinum are present, likely secondary to patient rotat ion and supine positioning. The lungs are otherwise clear. IMPRESSION: Limited examination of the chest demonstrates prominence of the right hilum and superior mediastinum likely secondary to patient rotation and supine positioning. Large hiatal hernia persists. Reviewed, dictated and finalized at location A. IMPRESSION: Limited examination of the chest demonstrates prominence of the right hilum and superior mediastinum likely secondary to patient rotation and supine positioni ng. Large hiatal hernia persists.
--- NOTE | ~2024-09-10 | XR_ITS ---
HISTORY: fall COMPARISON: None TECHNIQUE: 2 views of the right hip along with an AP view of the pelvis FINDINGS: Abnormal orientation of the right femur, possibly secondary to positioning. Repeat examination with appropriate positioning is recommended, if the patient is clinically able. No acute displaced fracture is appreciated. Superior lateral sclerosis of the femoral acetabular joint space is present consistent with osteoarth ritis. Significant degenerative disease is identified within the pubic symphysis with joint space narrowing and sclerosis. Degenerative disease within the visualized portion of the lower lumbar spine. Fecal stasis within the colon. Age-appropriate mineralization. IMPRESSION: Abnormal orientation of the right femur, possibly secondary to positioning. Repeat examination with appropriate positioning is recommended, if the patient is clinically able. No acute displaced fracture is appreciated. Reviewed, dictated and finalized at location A. IMPRESSION: Abnormal orientation of the right femur, possibly secondary to pos itioning. Repeat examination with appropriate positioning is recommended, if the patient is clinically able. No acute displaced fracture is appreciated.
--- NOTE | ~2024-09-10 | CT_ITS ---
History: Fall on Plavix PROCEDURE: CT head without contrast. COMPARISON: 07/03/2024 TECHNIQUE: Axial imaging of the head performed from the skull base to the vertex without IV contrast. Sagittal a nd coronal reformations obtained. DLP: 605 mGy-cm FINDINGS: The ventricles are enlarged. The dilatation of the ventricles is proportional to the degree of sulcal prominence, not uncommon in the senescent brain. Decreased attenuation is identified within the periventricular white matter, likely secondary to micr ovascular ischemic disease, in a patient of this age. There is no mass, mass effect or midline shift. There is no abnormal extra-axial fluid collection or intracranial hemorrhage. Visualized paranasal sinuses are clear. The mastoid air cells are well aerated. No acute displaced fractures within the overlying cranium. Impression: No acute intracranial hemorrhage or suspicious mass effect. Reviewed, dictated and finalized at location A. Impression: No acute intracranial hemorrhage or suspicious mass effect.
--- NOTE | ~2024-09-10 | XR_ITS ---
HISTORY: repeat, improve positioning for better visual COMPARISON: Previous examination performed 90 minutes earlier TECHNIQUE: 2 views of the right hip along with an AP view of the pelvis FINDINGS: Acute fracture of the right femoral neck is suspected with overlap of the femoral head. Degenerative disease within the visualized portion of the lower lumbar spine. Fecal stasis within the colon. Air within the rectum. Age-appropriate demineralization. IMPRESSION: Acute fracture of the right femoral neck with overlap of the femoral head, as detailed myla fraser. Reviewed, dictated and finalized at location A. IMPRESSION: Acute fracture of the right femoral neck with overlap of the femor al head, as detailed above.
--- NOTE | ~2024-09-10 | CT_ITS ---
History: Fall PROCEDURE: CT cervical spine without intravenous contrast. COMPARISON: None TECHNIQUE: Multiple contiguous axial images of the cervical spine were performed without the administration of i ntravenous contrast. DLP: 296 mGy-cm FINDINGS: Straightening and slight reversal of the normal curvature of the cervical spine is identified, likely muscular in origin. Significant degenerative disease is identified with osteophyte formation, disc space narrowing, endpl ate changes and facet arthropathy. Subchondral cyst formation is also noted. No acute fractures are present. Biapical scarring. No soft tissue abnormality is present. The airway is patent Impression: Straightening and slight reversal of the normal curvature of the cervical spine, likely muscular in o rigin. Degenerative disease, without acute fracture. Reviewed, dictated and finalized at location A. Impression: Straightening and slight reversal of the normal curvature of the cervical spine , likely muscular in origin. Degenerative disease, without acute fracture.
--- NOTE | ~2024-09-10 | CT_ITS ---
Clinical indication:Abnormal radiograph of the right hip COMPARISON:Reference is made to multiple plain film evaluations of the right hip, performed the same day. TECHNIQUE: Multiple contiguous axial images of the pelvis were performed without the administration o f intravenous contrast. FINDINGS: No acute or subacute fractures are appreciated. The mineralization of the right hip is heterogeneous, possibly owing to its abnormal appearance on pl ain radiograph. Significant degenerative disease is redemonstrated, within both the sacroiliac joint spaces as well a s the bilateral femoral acetabular joint spaces. IMPRESSION: No acute or subacute fracture is identified within the right hip, as detailed above. Reviewed, dictated and finalized at location A. IMPRESSION: No acute or subacute fracture is identified within the right hip, as detailed myla fraser.
[2024-09-10 19:33] VITALS: BP 133/61; PULSE 78; RESP 14; TEMP 36.1; O2SAT 98
--- OUTSIDE RECORDS SUMMARY | 2024-09-10 19:34 | XMS_ITS ---
Author Name Fabio Bundy Address [address] [place] [address] Phone [phone] Organization [facility] ices Address [address] [place] [address] Phone [phone] Care Team Providers Care Surface To Air Weapons Officer Name Role Phone Fabio Bundy Unavailable [phone] Abdi Raza Unavailable [phone] Functional Status No Results Mental Status No Results Allergies and Intolerances Name Onset Date Reaction Severity codeine (Allergy) Sat May 10 15:54:00 EST 2019 Sulfa (Sulfonamide Antibiotics) (Allergy) Sat 15:54:00 EST 2019 sunflower seed (Allergy) TueMay 10 15:54:00 EST 2019 Encounters Program Name Primary Diagnosis Admission Date/Time Dis charge Date/Time Rehabilitation [facility] Mar 31 20:00:00 EDT 2022 [facility] Hemiplegia and hemiparesis following cerebral infarction affecting right dominant side TueApr 24 06:00:00 EST 2020 Immunizations Name Dates Status influenza, trivalent, adjuvanted TueMar 23 01:0 0:00 EDT 2023 Completed Medications Medication Directions Start Date End Date ibuprofen 200 mg tablet 2 caps TABLET Or al PRN Every 6 Hours for 14 Days Indication: pain/inflammation TueAug 10 01:00:00 EST 2024Aug 24 00:59:00 EDT 2024 Fluad Triv 2023-(65y up)(PF) 45 mcg (15 mcg x 3)/0.5 mL IM syringe 1 SYRINGE (ML) Intramuscular 1 Time Daily for 1 Day Indication: VACCINE TueMar 22 01:00:00 EDT 2023Mar 23 00:59:00 EDT 2023 Deep Sea Nasal 0.65 % spray aerosol 2 sprays AEROSOL, SPRAY (ML) Intranasal PRN Every 4 Hours Indication: nose bleeds 2 sprays each nostril PRNNurse admin Sat Mar 17 01:00:00 EDT 2023 Centrum Silver Women 8 mg iron-400 mcg-50 mcg tablet one Oral 1 Time Daily for 2 Days Indication: MV [employer] SYSTEMS ADMINISTRATOR supervision x1 TueAug 22 02:19:00 EDT 2023Aug 24 02:18:00 EDT 2023 Centrum Silver Women 8 mg iron-400 mcg-50 mcg tablet one Oral 1 Time Daily Indication: MV [employer] SYSTEMS ADMINISTRATOR supervision x1 TueAug 29 01:00:00 EDT 2023 metroNIDAZOLE 1 % topical gel 1 selin GEL (GRAM) Topical 2 Times Daily for 5 Days Indication: abnormal blood discharge Nurse apply vaginally BID x 5 days TueJun 14 11:24:00 EST 2023Jun 14 13:14:00 EST 2023 metroNIDAZOLE 0.75 % (37.5 mg/5 gram) vaginal gel 1 selin GEL WITH APPLICATOR (GRAM) Topical 2 Times Daily for 5 Days Indication: abnormal blood discharge Nurse apply vaginally BID x 5 days TueJun 14 13:12:00 EST 2023Jun 19 13:11:00 EST 2023 cephALEXin 500 mg capsule 1 capsule CAPS ULE Oral 2 Times Daily for 7 Days Indication: UTI [employer] SYSTEMS ADMINISTRATOR supervision x1, x4 TueJun 06 01:00:00 EST 2022Jun 13 00:59:00 EST 2023 Stool Softener 100 mg tablet 1 tab TABLE T Oral 2 Times Daily Indication: constipation [employer]S ADMINISTRATOR supervision x1 x4 TueMay 17 01:00:00 EST 2022 polyethylene glycoL 3350 17 gram oral powder packet 1 POWDER IN PACKET (EA) Oral 1 Time Daily Indication: constipation TueMay 10 03:00:00 EST 2022 EPINEPHrine 0.3 mg/0.3 mL injection, auto-injector 1 syringe AUTO-INJECTOR (EA) Intramuscular PRN nurse adminIndication: anaphylaxis Inject PRN for allergic reaction to sunflower seeds TueApr 14 13:13:00 EDT 2022 Deep Sea Nasal 0.65 % spray aerosol 2 sprays AEROSOL, SPRAY (ML) Intranasal PRN Every 4 Hours nurse adminIndication: nose bleeds 2 sprays each nostril PRN TueApr 14 13:14:00 EDT 2022Jan 29 12:16:00 EDT 2023 pantoprazole 40 mg tablet,delayed release 1 TAB TABLET, DELAYED RELEASE (ENTERIC COATED) Oral 2 Times Daily VMWARE SYSTEMS ADMINISTRATOR supervision x1 [id number]: GERD TueApr 14 13:15:00 EDT 2022 acetaminophen 325 mg tablet 2 tab TABLET Oral PRN Every 4 Hours nurse adminIndication: fever/pain PRN Q4H *DO NOT EXCEED 3GM/day TueApr 14 13:16:00 EDT 2022Jan 29 12:16:00 EDT 2023 Anti-Diarrheal (loperamide) 2 mg tablet 1 tablet TABLET Oral PRN 1 Time Daily nurse adminIndication: Diarrhea TueApr 14 13:17:00 EDT 2022Jan 29 12:16:00 EDT 2023 dicyclomine 10 mg capsule 1 cap CAPSULE Oral 4 Times Daily [employer]S ADMINISTRATOR supervision x1 x2 x3 [id number]: IBS TueApr 14 13:18:00 EDT 2022 Colace 100 mg capsule 1 capsule CAPSULE Oral PRN 2 Times Daily nurse adminIndication: constipation TueApr 14 13:18:00 EDT 2022Jan 29 12:16:00 EDT 2023 senna 8.6 mg tablet 1 tablet TABLET Oral PRN 1 Time Daily nurse adminIndication: constipation TueApr 14 13:20:00 EDT 2022Jan 29 12:16:00 EDT 2023 Lidocaine Pain Relief 4 % topical patch 1 patch ADHESIVE PATCH, MEDICATED Topical PRN 2 Times Daily nurse adminIndication: pain Apply patch to right knee in AM, remove HS TueApr 14 13:21:00 EDT 2022Jan 29 12:16:00 EDT 2023 nitrofurantoin monohydrate/macrocrystals 100 mg capsule 1 cap CAPSULE Oral 2 Times Daily for 7 Days [employer]WARE SYSTEMS ADMINISTRATOR x 1Indication: UTI Sat Mar 14 01:00:00 EDT 2022 Sat Apr 02 00:59:00 EDT 2022 Acidophilus capsule 1 cap CAPSULE Oral 1 Time Daily for 10 Days Indication: preventative Sat Mar 14 01:00:00 EDT 2022Apr 05 00:59:00 EDT 2022 Lidocaine Pain Relief 4 % topical patch 1 patch ADHESIVE PATCH, MEDICATED Topical PRN 2 Times Daily Indication: pain Apply patch to right knee in AM, remove TueMar 16 15:43:00 EDT 2022Apr 14 13:22:00 EDT 2022 levoFLOXacin 500 mg tablet 1 tab TABLET Oral 1 Time Daily for 7 Days Indication: pneumonia [employer] SYSTEMS ADMINISTRATOR x1 Tue Sep 15 01:00:00 EDT 2022 Fri Sep 22 00:59:00 EDT 2022 [facility] Cough 30 mg/5 mL oral suspension,extended release 10ml SUSPENSION, EXTENDED RELEASE 12 HR Oral 2 Times Daily for 10 Days Indication: Cough Nurse x1 x4 Tue 13 01:00:00 EDT 2022 [facility] Feb 23 00:59:00 EDT 2022 Colace 100 mg capsule 1 capsule CAPSULE Oral PRN 2 Times Daily Indication: constipation TueDec 16 15:00:00 EDT 2022Apr 14 13:21:00 EDT 2022 senna 8.6 mg tablet 1 tablet TABLET Oral PRN 1 Time Daily Indication: constipation TueDec 16 15:00:00 2022Apr 14 13:22:00 EDT 2022 Lidocaine Pain Relief 4 % topical patch 1 patch ADHESIVE PATCH, MEDICATED Topical 2 Times Daily Indication: pain Apply patch to right knee in AM, remove TueDec 15 12:01:00 ED2022Mar 16 15:44:00 EDT 2022 dicyclomine 10 mg capsule 1 cap CAPSULE Oral 4 Times Daily Indication: IBS [employer]S ADMINISTRATOR x1 x2 x3 x4 TueDec 15 17:00:00 EDT 2022Apr 14 13:19:00 EDT 2022 pantoprazole 40 mg tablet,delayed release 1 TAB TABLET, DELAYED RELEASE (ENTERIC COATED) Oral 2 Times Daily Indication: GERD [employer]S ADMINISTRATOR x1 x4 TueDec 14 01:00:00 EDT 2022Apr 14 13:17:00 2022 acetaminophen 325 mg tablet 2 tab TABLET Oral PRN Every 4 Hours Indication: fever / pain PRN Q4H *DO NOT EXCEED 3GM/day TueDec 14 01:00:00 ED2022Apr 14 13:18:00 EDT 2022 Anti-Diarrheal (loperamide) 2 mg tablet 1 tablet TABLET Oral PRN 1 Time Daily Indication: Diarrhea TueDec 12 06:00:00 EDT 2022Apr 14 13:18:00 EDT 2022 lidocaine 5 % topical patch 1 patch ADHE SIVE PATCH, MEDICATED Topical 2 Times Daily Indication: pain Apply patch to right knee in AM, remove HS TueDec 15 06:00:00 EDT 2022Dec 15 12:02:00 EDT 2022 lidocaine 5 % topical patch 1 patch ADHE SIVE PATCH, MEDICATED Topical 2 Times Daily Indication: Apply patch to right knee in AM, remove HS d/t pain TueDec 10 07:00:00 EDT 2022Dec 14 01:00:00 EDT 2022 aspirin 81 mg tablet,delayed release 1 tablet TABLET, DELAYED RELEASE (ENTERIC COATED) Oral 1 Time Daily Indication: DVT proph TueDec 09 16:00:00 EDT 2022Dec 14 01:00:00 EDT 2022 clopidogreL 75 mg tablet 1 tablet TABLET Oral 1 Time Daily Indication: DVT proph TueDec 09 16:00:00 EDT 2022Dec 14 01:00:00 EDT 2022 potassium chloride ER 20 mEq tablet,extended release 1 tab TABLET, EXTENDED RELEASE Oral 1 Time Daily for 7 Days Indication: hypokalemia TueDec 06 16:22:00 EDT 2022Dec 13 16:21:00 EDT 2022 TUBErsoL 5 tub. unit/0.1 mL intradermal injection solution Read Results VIAL (ML) Other 1 Time Weekly for 2 Weeks Indication: TB Read results between 48-72 hours after 1st and 2nd (1 week apart). If positive do chest x-ray. TueDec 02 03:00:00 EDT 2022Dec 14 01:00:00 EDT 2022 mirtazapine 15 mg tablet 1 TAB TABLET Or al 1 Time Daily Indication: DEPRESSION TueDec 02 06:00:00 EDT 2022Dec 02 08:31:00 EDT 2022 mirtazapine 15 mg tablet 1 TAB TABLET Or al 1 Time Daily Indication: DEPRESSION TueDec 02 08:28:00 EDT 2022Dec 14 01:00:00 EDT 2022 methylPREDNISolone acetate 4 0 mg/mL suspension for injection 40mg VIAL (ML) Intramuscular 1 Time Daily for 1 Day Indication: Pain/InflammationInject 40mg Medrol with Lidocaine 5% 10mL into right knee x 1Dr. Nate to administer on 12/06Dec 06 07:00:00 EDT 2022Dec 07 06:59:00 EDT 2022 Anti-Diarrheal (loperamide) 2 mg tablet 1 tablet TABLET Oral 1 Time Daily for 3 Days Indication: Diarrhea TueDec 02 12:00:00 EDT 2022Dec 05 11:59:00 EDT 2022 Anti-Diarrheal (loperamide) 2 mg tablet 1 tablet TABLET Oral PRN 1 Time Daily Indication: Diarrhea TueDec 06 07:00:00 EDT 2022Dec 14 01:00:00 EDT 2022 lidocaine HCl (PF) 100 mg/10 mL (1 %) in 0.9 % sodium chloride syringe 10mL SYRINGE (ML) Intramuscular 1 Time Daily for 1 Day Indication: Pain/InflammationInject 10mL with 40mg Medrol x 1 to right kneeDr. Nate to administer TueDec 06 07:00:00 EDT 2022Dec 07 06:59:00 EDT 2022 pantoprazole 40 mg tablet,delayed release 1 TAB TABLET, DELAYED RELEASE (ENTERIC COATED) Oral Every 12 Hours Indication: GERD TueDec 01 17:00:00 ED2022Dec 14 01:00:00 2022 acetaminophen 325 mg tablet 2 TABS TABLE T Oral PRN 1 Time Daily Indication: PAIN * DO NOT EXCEED 3GM/DAY APAP FROM ALL SOURCES*2 VUVQ=101 MG TueDec 01 17:05:00 EDT 2022Dec 14 01:00:00 ED2022 lisinopriL 10 mg tablet 1 TAB TABLET Ora l 1 Time Daily Indication: HYPERTENSION TueDec 01 17:00:00 ED2022Dec 14 01:00:00 2022 oxyBUTYnin chloride 5 mg tablet 5mg TABLET Oral 2 Times Daily Indication: OVERACTIVE BLADDER TueDec 01 17:00:00 EDT 2022Dec 14 01:00:00 2022 atorvastatin 20 mg tablet 1 tab TABLET O ral 1 Time Daily Indication: HYPERLIPIDEMIA TueDec 01 17:00:00 EDT 2022Dec 14 01:00:00 EDT 2022 DULoxetine 20 mg capsule,delayed release 1 capsule CAPSULE,DELAYED RELEASE (ENTERIC COATED) Oral 2 Times Daily Indication: DEPRESSION TueDec 01 17:00:00 EDT 2022Dec 14 01:00:00 ED2022 TUBErsoL 5 tub. unit/0.1 mL intradermal injection solution 0.1 ml VIAL (ML) Intradermal 1 Time Weekly for 2 Weeks Indication: admit 1st injection on admission, then one week after. Read between 48 and 72 hours TueDec 02 07:00:00 EDT 2022Dec 14 01:00:00 EDT 2022 Centrum Silver Women 8 mg iron-400 mcg-300 mcg tablet 1 TAB TABLET Oral 1 Time Daily Indication: SUPPLEMENT TueDec 01 17:00:00 2022Dec 14 01:00:00 2022 sodium chloride 1,000 mg soluble tablet 1 TAB TABLET, SOLUBLE Oral 2 Times Daily Indication: SUPPLEMENT TueDec 01 17:00:00 ED2022Dec 14 01:00:00 2022 EPINEPHrine 0.3 mg/0.3 mL injection, auto-injector 1 syringe AUTO-INJECTOR (EA) Intramuscular PRN Indication: ALLERGIC REACTION MAY REPEAT ONCE TueDec 01 17:00:00 2022Dec 14 01:00:00 2022 cholecalciferol (vitamin D3) 50 mcg (2,000 unit) capsule 1 cap CAPSULE Oral 1 Time Daily Indication: SUPPLEMENT TueDec 01 17:00:00 EDT 2022Dec 14 01:00:00 ED2022 acetaminophen 325 mg tablet 2 tab TABLET Oral 2 Times Daily Indication: Chronic Pain [employer]WARE SYSTEMS ADMINISTRATOR X1 Sun Sep 19 01:00:00 EDT 2022 Sun Dec 12 18:38:00 EDT 2022 fluconazole 150 mg tablet 1 Tablet TABLE T Oral Every 3 Days for 7 Days Indication: Yeast infection [employer] SYSTEMS ADMINISTRATOR x1 TueAug 26 06:00:00 ED2022Sep 02 05:59:00 EDT 2022 nystatin 100,000 unit/gram topical powder 1 POWDER (GRAM) Topical 2 Times Daily for 14 Days Indication: yeast infection BID to groin area TueAug 26 06:00:00 ED2022Sep 09 05:59:00 EDT 2022 ProFit Precision Scale misc 1 MISCELLANE OUS Other 2 Times Monthly Indication: Vital Signs VMWARE SYSTEMS ADMINISTRATOR to obtain TueJul 29 11:11:00 EST 2022 Deep Sea Nasal 0.65 % spray aerosol 2 sprays AEROSOL, SPRAY (ML) Intranasal Every 4 Hours for 1 Day 2 sprays each nostril TueJan 09 01:00:00 EDT 2021Jan 10 00:59:00 EDT 2021 Deep Sea Nasal 0.65 % spray aerosol 2 sprays AEROSOL, SPRAY (ML) Intranasal PRN Every 4 Hours 2 sprays each nostril PRN TueJan 10 01:00:00 EDT 2021Apr 14 13:16:00 EDT 2022 Xylocaine 10 mg/mL (1 %) injection solution as directed by physician VIAL (ML) Intramuscular 1 Time Daily for 1 Day skin tag removal TueNov 19 07:00:00 EDT 2021Nov 20 06:59:00 EDT 2021 lidocaine (PF) 20 mg/mL (2 % ) intravenous solution 1 VIAL (ML) Subcutaneous 1 Time Daily for 1 Day skin tag removal TueNov 19 01:00:00 EDT 2021Nov 16 19:01:00 EDT 2021 lidocaine (PF) 20 mg/mL (2 % ) intravenous solution 5ml VIAL (ML) Intravenous 1 Time Daily for 1 Day skin tag removal TueNov 19 01:00:00 EDT 2021Nov 14 10:23:00 EDT 2021 acetaminophen 325 mg tablet 2 tab TABLET Oral PRN Every 4 Hours PRN Q4H for fever Sun Jun 14 11:18:00 EST 2021Dec 12 18:38:00 EDT 2022 ProFit Precision Scale misc 1 MISCELLANE OUS Other 1 Time Monthly [employer]WARE SYSTEMS ADMINISTRATOR to obtain TueJun 13 12:04:00 EST 2021Jul 29 11:17:00 EST 2022 aspirin 81 mg tablet,delayed release 81mg TABLET, DELAYED RELEASE (ENTERIC COATED) Oral 1 Time Daily [employer]WARE SYSTEMS ADMINISTRATOR supervision x1 DVT proph TueMay 15 19:30:00 EST 2020 EPINEPHrine 0.3 mg/0.3 mL injection, auto-injector 1 syringe AUTO-INJECTOR (EA) Intramuscular PRN Inject PRN for allergic reaction to sunflower seeds TueMay 15 01:00:00 EST 2020Apr 14 13:14:00 EDT 2022 lisinopriL 10 mg tablet 10mg TABLET Oral 1 Time Daily [employer]WARE SYSTEMS ADMINISTRATOR supervision [id number] TueMay 15 16:40:00 EST 2020 oxyBUTYnin chloride 5 mg tablet 5mg TABLET Oral 2 Times Daily [employer]WARE SYSTEMS ADMINISTRATOR supervision x1 [id number] Spasms TueMay 15 16:40:00 EST 2020 clopidogreL 75 mg tablet 75mg TABLET Ora l 1 Time Daily [employer] SYSTEMS ADMINISTRATOR supervision [id number] TueMay 15 16:40:00 EST 2020 sodium chloride 1,000 mg soluble tablet 1 gram TABLET Oral 2 Times Daily [employer]WARE SYSTEMS ADMINISTRATOR supervision x1 [id number] TueMay 15 16:40:00 EST 2020 cholecalciferol (vitamin D3) 50 mcg (2,000 unit) capsule 1 cap CAPSULE Oral 1 Time Daily [employer]WARE SYSTEMS ADMINISTRATOR supervision x1 TueMay 15 16:40:00 EST 2020 mirtazapine 15 mg tablet 15mg TABLET Ora l 1 Time Daily [employer] SYSTEMS ADMINISTRATOR supervision [id number] TueMay 15 16:40:00 EST 2020 baclofen 10 mg tablet 10mg TABLET Oral P RN Every 6 Hours Muscle Spasms TueMay 15 01:00:00 EST 2020October 11 18:57:00 EDT 2022 atorvastatin 20 mg tablet 1 tab TABLET O ral 1 Time Daily [employer] SYSTEMS ADMINISTRATOR supervision [id number] TueMay 15 16:40:00 EST 2020 traMADoL 50 mg tablet 25mg TABLET Oral P RN Every 8 Hours Moderate to Severe Pain TueMay 15 16:40:00 EST 2020May 15 19:40:00 EST 2020 DULoxetine 20 mg capsule,delayed release 1 capsule CAPSULE,DELAYED RELEASE (ENTERIC COATED) Oral 2 Times Daily [employer]WARE SYSTEMS ADMINISTRATOR supervision x1 x4 TueMay 15 16:40:00 EST 2020 traMADoL 50 mg tablet 50mg TABLET Oral P RN Every 8 Hours For Severe Pain (7-10) TueMay 15 16:40:00 EST 2020October 11 18:57:00 EDT 2022 Centrum Silver Women 8 mg iron-400 mcg-300 mcg tablet one Oral 1 Time Daily [employer]WARE SYSTEMS ADMINISTRATOR supervision x1 TueMay 15 16:40:00 EST 2020Aug 22 02:20:00 EDT 2023 polyethylene glycoL 3350 17 gram/dose oral powder 17 grams POWDER (GRAM) Oral PRN 1 Time Daily TueMay 15 01:00:00 EST 2020October 11 18:57:00 EDT 2022 traMADoL 50 mg tablet 50 mg 25mg TABLET Oral PRN Every 8 Hours Moderate pain ( pain scale 4-6) TueMay 15 16:40:00 EST 2020October 11 18:57:00 EDT 2022 ProFit Precision Scale misc 1 MISCELLANE OUS Other 1 Time Monthly [employer]WARE SYSTEMS ADMINISTRATOR to obtain TueMay 15 01:00:00 EST 2020Jun 13 12:05:00 EST 2021 [facility] COVID-19 Vaccine (PF) 30 mcg/0.3 mL IM suspension(EUA) 0.3 mL VIAL (ML) Intramuscular 1 Time Daily TueMar 25 01:00:00 EDT 2020Mar 27 18:54:00 EDT 2020 Fluad Quad (65yr up)(PF) 60 mcg (15 mcg x 4)/0.5mL IM syringe 0.5 mL SYRINGE (ML) Intramuscular 1 Time Daily for 1 Day TueMar 19 01:00:00 EDT 2020Mar 20 00:59:00 EDT 2020 lisinopriL 10 mg tablet 10mg TABLET Oral 1 Time Daily HTN TueFeb 02 15:00:00 EDT 2020May 15 01:00:00 EST 2020 polyethylene glycoL 3350 17 gram/dose oral powder 17 grams POWDER (GRAM) Oral 1 Time Daily for 5 Days TueJan 06 19:00:00 EDT 2020Jan 11 18:59:00 EDT 2020 polyethylene glycoL 3350 17 gram/dose oral powder 17 grams POWDER (GRAM) Oral PRN 1 Time Daily TueJan 11 07:00:00 EDT 2020May 15 01:00:00 EST 2020 mirtazapine 15 mg tablet 15mg TABLET Ora l 1 Time Daily For Appetite Stimulation TueSep 20 08:00:00 EDT 2020May 15 01:00:00 EST 2020 traMADoL 50 mg tablet 25mg TABLET Oral P RN Every 8 Hours Moderate Pain (pain scale 4-6) TueSep 10 01:00:00 EDT 2020May 15 01:00:00 EST 2020 traMADoL 50 mg tablet 50mg TABLET Oral P RN Every 8 Hours For Severe Pain (7-10) TueSep 10 01:00:00 EDT 2020May 15 01:00:00 EST 2020 DULoxetine 20 mg capsule,delayed release 1 capsule CAPSULE,DELAYED RELEASE (ENTERIC COATED) Oral 2 Times Daily TueAug 20 01:00:00 2020May 15:00:00 EST 2020 Centrum Silver Women 8 mg iron-400 mcg-300 mcg tablet one Oral 1 Time Daily TueJul 18 09:00:00 2020May 15:00:00 EST 2020 [facility] COVID-19 Vaccine (PF) 30 mcg/0.3 mL IM suspension(EUA) 0.3 mL VIAL (ML) Intramuscular 1 Time Daily for 1 Day TueJun 19 01:00:00 2020Jun 20 00:59:00 EST 2020 atorvastatin 20 mg tablet 20mg TABLET Or al 1 Time Daily Hyperlipidemia TueJun 03 11:00:00 2019May 15:00:00 2020 traMADoL 50 mg tablet 25mg TABLET Oral P RN Every 8 Hours Moderate to Severe Pain TueJun 03:00:2019Sep 10 08:50:00 EDT 2020 traMADoL 50 mg tablet 50mg TABLET Oral P RN Every 8 Hours Moderate to Severe Pain TueJun 03:00:00 2019Sep 10 08:50:00 EDT 2020 acetaminophen 500 mg tablet 1-2 tablets TABLET Oral PRN Every 6 Hours Pain TueMay 20 12:00:00 2019Jun 03 11:30:00 2019 baclofen 10 mg tablet 10mg TABLET Oral P RN Every 6 Hours Muscle Spasms TueMay 20 12:00:00 2019May 15 01:00:00 2020 mirtazapine 15 mg tablet 15mg TABLET Ora l 1 Time Daily Depression TueMay 16 15:00:00 2019 Apr 10 08:38:00 EDT 2020 traMADoL 50 mg tablet 50mg TABLET Oral P RN Every 6 Hours Pain TueMay 16 15:00:00 2019May 16 16:16:00 2019 naproxen 500 mg tablet 500mg TABLET Oral PRN 2 Times Daily Pain TueMay 16 15:00:00 2019May 16 16:16:00 2019 lidocaine 5 % topical patch 1 patch ADHE SIVE PATCH, MEDICATED Topical PRN 2 Times Daily Pain. On for 12 hours. Off for 12 hours. TueMay 16 15:00:00 2019May 16 16:16:00 2019 cholecalciferol (vitamin D3) 50 mcg (2,000 unit) capsule 1 cap CAPSULE Oral 1 Time Daily TueMay 16 09:00:00 2019May 15 01:00:00 EST 2020 Pneumovax-23 25 mcg/0.5 mL injection solution 0.5 mL VIAL (ML) Intramuscular 1 Time Daily for 1 Day TueMay 16 01:00:00 2019May 17 00:59:00 2019 TUBErsoL 5 tub. unit/0.1 mL intradermal injection solution 0.1 ml VIAL (ML) Intradermal 1 Time Weekly for 2 Weeks (PPD) 1st injection upon admission. Read between 48 and 72 hours and give 2nd injection 1 week after the 1st if result is negative. If positive result, proceed with chest x-ray to rule out active disease. TueMay 12 12:00:00 2019May 26 11:59:00 2019 TUBErsoL 5 tub. unit/0.1 mL intradermal injection solution Read Results VIAL (ML) Other 1 Time Weekly for 2 Weeks Read results between 48-72 hours after 1st and 2nd 1 week apart. If positive do chest x-ray to rule out active disease. TueMay 12 12:00:00 2019May 26 11:59:00 2019 acetaminophen 325 mg tablet 650mg TABLET Oral PRN Every 6 Hours Pain TueMay 10 16:00:2019Jun 03 11:28:2019 aspirin 81 mg tablet,delayed release 81mg TABLET, DELAYED RELEASE (ENTERIC COATED) Oral 1 Time Daily DVT proph TueMay 10 16:00:00 2019May 15 01:00:00 EST 2020 atorvastatin 40 mg tablet 40mg TABLET Or al 1 Time Daily Hyperlipidemia TueMay 10:00:2019Jun 03 11:30:00 2019 baclofen 5 mg tablet 5mg TABLET Oral PRN Every 8 Hours Muscle Spasms TueMay 10 16:00:00 2019Sep 18 20:06:00 EDT 2020 EPINEPHrine 0.3 mg/0.3 mL injection, auto-injector 1 syringe AUTO-INJECTOR (EA) Intramuscular PRN Inject PRN for allergic reaction to sunflower seeds TueMay 10 16:00:00 2019May 15 01:00:00 EST 2020 lisinopriL 10 mg tablet 10mg TABLET Oral 1 Time Daily HTN TueMay 10 16:00:00 2019Feb 02 15:37:00 EDT 2020 oxybutynin chloride 5 mg tablet 5mg TABLET Oral 2 Times Daily Bladder Spasms TueMay 10 16:00:00 2019May 15 01:00:00 EST 2020 clopidogreL 75 mg tablet 75mg TABLET Ora l 1 Time Daily Stroke Prevention TueMay 10 16:00:00 2019May 15 01:00:00 EST 2020 mirtazapine 7.5 mg tablet 7.5mg TABLET O ral 1 Time Daily Depression TueMay 10 16:00:00 2019May 16 14:51:00 EST 2019 sodium chloride 1 gram tablet 1 gram TAB LET Oral 2 Times Daily Hyponatremia TueMay 10 16:00:00 2019May 15 01:00:00 EST 2020 multivitamin tablet 1 tablet TABLET Oral 1 Time Daily Supplement TueMay 10 16:00:00 2019Sep 10 09:33:00 EDT 2020 Vitamin D3 25 mcg (1,000 unit) capsule 2,000 Units CAPSULE Oral 1 Time Daily Supplement TueMay 10 16:00:00 EST 2019Jun 03 11:30:00 EST 2019 sertraline 25 mg tablet 50mg TABLET Oral 1 Time Daily for 8 Days Depression TueMay 10 08:00:00 EST 2019May 10 16:36:00 EST 2019 sertraline 25 mg tablet 50mg TABLET Oral 1 Time Daily for 8 Days Depression TueMay 10 08:00:00 2019May 10 16:40:00 2019 sertraline 25 mg tablet 25mg TABLET Oral 1 Time Daily for 8 Days Depression TueMay 18 08:00:00 EST 2019May 26 07:59:00 EST 2019 sertraline 25 mg tablet 50mg TABLET Oral 1 Time Daily for 8 Days Depression TueMay 10 08:00:00 2019May 18 07:59:00 EST 2019 Problems Active Concerns * Essential (primary) hypertension* Code: * Start Date: TueMay 10 00:00:00 2020 * End Date: * Text: * Hemiplegia and hemiparesis following cerebral infarction affecting right dominant side* Code: * Start Date: TueMay 10 00:00:00 2019 * End Date: * Text: * Aphasia following cerebral infarction* Code: * Start Date: TueMay 10 00:00:00 2020 * End Date: * Text: * Apraxia following cerebral infarction* Code: * Start Date: TueMay 10 00:00:00 2020 * End Date: * Text: * Dysphagia following cerebral infarction* Code: * Start Date: TueMay 10 00:00:00 2019 * End Date: * Text: * Mixed hyperlipidemia* Code: * Start Date: TueMay 10 00:00:00 2019 * End Date: * Text: * 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* Code: * Start Date: TueMay 10 00:00:00 2019 * End Date: * Text: * Mixed incontinence* Code: * Start Date: TueMay 10 00:00:00 2019 * End Date: * Text: * Overactive bladder* Code: * Start Date: TueMay 10 00:00:00 2019 * End Date: * Text: * Full incontinence of feces* Code: * Start Date: TueMay 10 00:00:00 2019 * End Date: * Text: * Scoliosis, unspecified* Code: * Start Date: TueMay 10 00:00:00 2019 * End Date: * Text: * Vitamin D deficiency, unspecified* Code: * Start Date: TueMay 10 00:00:00 2019 * End Date: * Text: * Psoriasis, unspecified* Code: * Start Date: TueMay 10 00:00:00 2019 * End Date: * Text: * 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]* Code: * Start Date: TueMay 10 00:00:00 2019 * End Date: * Text: * retirement (current) use of aspirin* Code: * Start Date: TueMay 10 00:00:00 2019 * End Date: * Text: * Atherosclerosis of other arteries* Code: * Start Date: TueMay 10 00:00:00 2019 * End Date: * Text: * Other specified disorders of bladder* Code: * Start Date: TueMay 10 00:00:00 2019 * End Date: * Text: * Anemia, unspecified* Code: * Start Date: TueMay 10 00:00:00 2019 * End Date: * Text: * Unspecified urinary incontinence* Code: * Start Date: TueMay 10 00:00:00 2019 * End Date: * Text: * Dysphagia, oropharyngeal phase* Code: * Start Date: TueMay 15 00:00:00 2020 * End Date: * Text: * Major depressive disorder, recurrent, moderate* Code: * Start Date: TueMay 15 00:00:00 2020 * End Date: * Text: * Slow transit constipation* Code: * Start Date: TueMay 15 00:00:00 EST 2020 * End Date: * Text: * Other sequelae of cerebral infarction* Code: * Start Date: TueMay 15 00:00:00 EST 2020 * End Date: * Text: * Pain in right upper arm* Code: * Start Date: TueMay 15 00:00:00 EST 2020 * End Date: * Text: * Primary generalized (osteo)arthritis* Code: * Start Date: TueMay 15 00:00:00 EST 2020 * End Date: * Text: * 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* Code: * Start Date: TueDec 01 00:00:00 EDT 2022 * End Date: * Text: * Gastro-esophageal reflux disease without esophagitis* Code: * Start Date: TueDec 01 00:00:00 EDT 2022 * End Date: * Text: * Gastric ulcer, unspecified as acute or chronic, without hemorrhage or perforation* Code: * Start Date: TueDec 01 00:00:00 EDT 2022 * End Date: * Text: * Hypo-osmolality and hyponatremia* Code: * Start Date: TueDec 01 00:00:00 EDT 2022 * End Date: * Text: * Personal history of other diseases of the digestive system* Code: * Start Date: TueDec 14 00:00:00 EDT 2022 * End Date: * Text: * Unspecified lump in the right breast, unspecified quadrant* Code: * Start Date: TueMar 21 00:00:00 EDT 2022 * End Date: * Text: * Other fatigue* Code: * Start Date: TueApr 01 00:00:00 EDT 2022 * End Date: * Text: * Pain in right foot* Code: * Start Date: TueAug 09 00:00:00 EST 2024 * End Date: * Text: * Unspecified fall, subsequent encounter* Code: * Start Date: TueAug 09 00:00:00 EST 2024 * End Date: * Text: Resolved Concerns * Problem Muscle weakness (generalized)* Code: * Start Date: TueJun 02 00:00:00 EST 2019 * End Date: TueApr 10 00:00:00 EDT 2023 * Problem Occlusion and stenosis of left carotid artery* Code: * Start Date: TueMay 10 00:00:00 EST 2019 * End Date: TueApr 10 00:00:00 EDT 2023 * Problem Hyperkalemia* Code: * Start Date: TueDec 01 00:00:00 EDT 2022 * End Date: TueApr 10 00:00:00 EDT 2023 * Problem Dysuria* Code: * Start Date: TueDec 01 00:00:00 EDT 2022 * End Date: TueApr 10 00:00:00 EDT 2023 * Problem Pain, unspecified* Code: * Start Date: TueDec 01 00:00:00 EDT 2022 * End Date: TueApr 10 00:00:00 EDT 2023 * Problem Localized edema* Code: * Start Date: TueDec 01 00:00:00 EDT 2022 * End Date: TueApr 10 00:00:00 EDT 2023 * Problem Other specified postprocedural states* Code: * Start Date: TueDec 01 00:00:00 EDT 2022 * End Date: TueApr 10 00:00:00 EDT 2023 * Problem Hypokalemia* Code: * Start Date: TueDec 01 00:00:00 EDT 2022 * End Date: TueApr 10 00:00:00 EDT 2023 * Problem Abnormal weight loss* Code: * Start Date: TueDec 14 00:00:00 EDT 2022 * End Date: TueApr 10 00:00:00 EDT 2023 * Problem Noninfective gastroenteritis and colitis, unspecified* Code: * Start Date: TueDec 14 00:00:00 EDT 2022 * End Date: TueApr 10 00:00:00 EDT 2023 * Problem Unspecified lack of coordination* Code: * Start Date: TueDec 17 00:00:00 EDT 2022 * End Date: TueApr 10 00:00:00 EDT 2023 * Problem Unspecified fall, subsequent encounter* Code: * Start Date: TueApr 28 00:00:00 EST 2022 * End Date: TueApr 10 00:00:00 EDT 2023 * Problem Contusion of scalp, subsequent encounter* Code: * Start Date: TueApr 28 00:00:00 EST 2022 * End Date: TueApr 10 00:00:00 EDT 2023 * Problem Abrasion of right back wall of thorax, subsequent encounter* Code: * Start Date: TueApr 28 00:00:00 EST 2022 * End Date: TueApr 10 00:00:00 EDT 2023 * Problem Other constipation* Code: * Start Date: TueMay 09 00:00:00 EST 2022 * End Date: TueApr 10 00:00:00 EDT 2023 * Problem Unspecified lump in the right breast, upper outer quadrant* Code: * Start Date: TueMay 16 00:00:00 EST 2022 * End Date: TueApr 10 00:00:00 EDT 2023 * Problem Raised antibody titer* Code: * Start Date: TueMay 16 00:00:00 EST 2022 * End Date: TueApr 10 00:00:00 EDT 2023 * Problem Cerebral infarction, unspecified* Code: * Start Date: TueApr 01 00:00:00 EDT 2022 * End Date: TueApr 10 00:00:00 EDT 2023 * Problem Weakness* Code: * Start Date: TueOct 09 00:00:00 EDT 2023 * End Date: TueApr 10 00:00:00 EDT 2023 Vital Signs Vital Sign Measurement Date Systolic Blood Pressure 124.00 mm[Hg] [facility] Aug 25 11:01:51 EDT 2024 Diastolic Blood Pressure 77.00 mm[Hg] [facility] Aug 25 11:01:51 EDT 2024 Body weight 166.00 [lb_av] [facility] Aug 25 11:01 :51 EDT 2024 Heart Rate 90.00 /min [facility] Aug 25 11:01 :51 EDT 2024 Body temperature 97.80 [degF] [facility] Aug 25 11:0 1:51 EDT 2024 Respiratory rate 18.00 /min [facility] Aug 25 11:0 1:51 EDT 2024 Pulse Oximetry 95.00 % [facility] Aug 25 11:01 :51 EDT 2024 Systolic Blood Pressure 125.00 mm[Hg] [facility] Aug 11 10:57:31 EST 2024 Diastolic Blood Pressure 80.00 mm[Hg] [facility] Aug 11 10:57:31 EST 2024 Body weight 164.00 [lb_av] [facility] Aug 11 10:57 :31 EST 2024 Heart Rate 90.00 /min [facility] Aug 11 10:57 :31 EST 2025 Body temperature 97.50 [degF] Sat Aug 11 10:5 7:31 EST 2024 Respiratory rate 18.00 /min TueAug 11 10:5 7:31 EST 2024 Pulse Oximetry 95.00 % TueAug 11 10:57 :31 EST 2024 Systolic Blood Pressure 142.00 mm[Hg] Sat Feb 15 14:01:11 EST 2024 Diastolic Blood Pressure 81.00 mm[Hg] Sat Feb 15 14:01:11 EST 2024 Body weight 166.60 [lb_av] Sat Feb 15 14:01 :11 EST 5 Heart Rate 88.00 /min Sat Feb 15 14:01 :11 EST 2024 Body temperature 97.20 [degF] Sat Feb 15 14:0 1:11 EST 2024 Respiratory rate 18.00 /min Sat Feb 15 14:0 1:11 EST 2024 Pulse Oximetry 95.00 % Sat Feb 15 14:01 :11 EST 2024 Systolic Blood Pressure 120.00 mm[Hg] Sat b 16:21:42 EST 2024 Diastolic Blood Pressure 78.00 mm[Hg] Sat Jul 14 16:21:42 EST 2024 Body weight 161.00 [lb_av] Sat Jul 14 16:21 :42 EST 2024 Heart Rate 98.00 /min Sat Jul 14 16:21 :42 EST 2024 Body temperature 97.30 [degF] [facility] Jul 14 16:2 1:42 EST 2024 Respiratory rate 18.00 /min [facility] Jul 14 16:2 1:42 EST 2024 Pulse Oximetry 94.00 % [facility] Jul 14 16:21 :42 EST 2024 Systolic Blood Pressure 144.00 mm[Hg] TueJun 27 12:40:56 EST 5 Diastolic Blood Pressure 74.00 mm[Hg] TueJun 27 12:40:56 EST 2024 Body weight 163.20 [lb_av] TueJun 27 12:40 :56 EST 2024 Heart Rate 71.00 /min TueJun 27 12:40 :56 EST 2024 Body temperature 97.30 [degF] TueJun 27 12:4 0:56 EST 2024 Respiratory rate 18.00 /min TueJun 27 12:4 0:56 EST 2024 Pulse Oximetry 96.00 % TueJun 27 12:40 :56 EST 2024 Systolic Blood Pressure 107.00 mm[Hg] TueJun 13 11:26:44 EST 2024 Diastolic Blood Pressure 69.00 mm[Hg] TueJun 13 11:26:44 EST 2024 Body weight 167.00 [lb_av] TueJun 13 11:26 :44 EST 2024 Heart Rate 83.00 /min TueJun 13 11:26 :44 EST 2024 Body temperature 97.60 [degF] TueJun 13 11:2 6:44 EST 2024 Respiratory rate 18.00 /min TueJun 13 11:2 6:44 EST 2024 Pulse Oximetry 95.00 % TueJun 13 11:26 :44 EST 2024 Systolic Blood Pressure 112.00 mm[Hg] TueMay 27 14:04:44 EST 2023 Diastolic Blood Pressure 76.00 mm[Hg] TueMay 27 14:04:44 EST 2023 Body weight 169.60 [lb_av] TueMay 27 14:04 :44 EST 2023 Heart Rate 110.00 /min TueMay 27 14:04 :44 EST 2023 Body temperature 98.00 [degF] TueMay 27 14:0 4:44 EST 2023 Respiratory rate 18.00 /min TueMay 27 14:0 4:44 EST 2023 Pulse Oximetry 92.00 % TueMay 27 14:04 :44 EST 2023 Systolic Blood Pressure 100.00 mm[Hg] TueMay 13 12:49:57 EST 2023 Diastolic Blood Pressure 70.00 mm[Hg] TueMay 13 12:49:57 EST 2023 Body weight 158.60 [lb_av] TueMay 13 12:49 :57 EST 2023 Heart Rate 86.00 /min TueMay 13 12:49 :57 EST 2023 Body temperature 98.60 [degF] TueMay 13 12:4 9:57 EST 2023 Respiratory rate 18.00 /min TueMay 13 12:4 9:57 EST 2023 Pulse Oximetry 97.00 % TueMay 13 12:49 :57 EST 2023 Systolic Blood Pressure 113.00 mm[Hg] TueApr 27 13:26:01 EST 2023 Diastolic Blood Pressure 62.00 mm[Hg] TueApr 27 13:26:01 EST 2023 Body weight 161.40 [lb_av] TueApr 27 13:26 :01 EST 2023 Heart Rate 89.00 /min TueApr 27 13:26 :01 EST 2023 Body temperature 98.20 [degF] TueApr 27 13:2 6:01 EST 2023 Respiratory rate 18.00 /min TueApr 27 13:2 6:01 EST 2023 Pulse Oximetry 95.00 % TueApr 27 13:26 :01 EST 2023 Systolic Blood Pressure 115.00 mm[Hg] TueApr 13 14:48:26 EDT 2023 Diastolic Blood Pressure 75.00 mm[Hg] TueApr 13 14:48:26 EDT 2023 Heart Rate 108.00 /min TueApr 13 14:48 :26 EDT 2023 Body temperature 97.20 [degF] TueApr 13 14:4 8:26 EDT 2023 Respiratory rate 18.00 /min TueApr 13 14:4 8:26 EDT 2023 Pulse Oximetry 97.00 % TueApr 13 14:48 :26 EDT 2023 Systolic Blood Pressure 121.00 mm[Hg] TueMar 27 14:33:53 EDT 2023 Diastolic Blood Pressure 75.00 mm[Hg] TueMar 27 14:33:53 EDT 2023 Body weight 156.20 [lb_av] TueMar 27 14:33 :53 EDT 2023 Heart Rate 89.00 /min TueMar 27 14:33 :53 EDT 2023 Body temperature 98.10 [degF] TueMar 27 14:3 3:53 EDT 2023 Respiratory rate 18.00 /min TueMar 27 14:3 3:53 EDT 2023 Pulse Oximetry 94.00 % TueMar 27 14:33 :53 EDT 2023 Body temperature 98.00 [degF] TueMar 25 11:4 8:17 EDT 2023 Body temperature 97.80 [degF] TueMar 24 16:0 5:19 EDT 2023 Body temperature 97.30 [degF] TueMar 24 14:2 8:21 EDT 2023 Body temperature 97.20 [degF] TueMar 23 16:5 9:02 EDT 2023 Body temperature 98.00 [degF] TueMar 23 11:0 5:57 EDT 2023 Systolic Blood Pressure 104.00 mm[Hg] TueMar 13 11:10:07 EDT 2023 Diastolic Blood Pressure 61.00 mm[Hg] TueMar 13 11:10:07 EDT 2023 Body weight 155.60 [lb_av] TueMar 13 11:10 :07 EDT 2023 Heart Rate 78.00 /min TueMar 13 11:10 :07 EDT 2023 Body temperature 97.80 [degF] TueMar 13 11:1 0:07 EDT 2023 Respiratory rate 18.00 /min TueMar 13 11:1 0:07 EDT 2023 Pulse Oximetry 95.00 % TueMar 13 11:10 :07 EDT 2023 Systolic Blood Pressure 101.00 mm[Hg] Sun Sep 15 10:58:16 EDT 2023 Diastolic Blood Pressure 66.00 mm[Hg] Sun Sep 15 10:58:16 EDT 2023 Body weight 157.00 [lb_av] Sun Sep 15 10:58 :16 EDT 2023 Heart Rate 95.00 /min [facility] Sep 15 10:58 :16 EDT 2023 Body temperature 97.80 [degF] [facility] Sep 15 10:5 8:16 EDT 2023 Respiratory rate 18.00 /min [facility] Sep 15 10:5 8:16 EDT 2023 Pulse Oximetry 95.00 % [facility] 15 10:58 :16 EDT 2023 Systolic Blood Pressure 117.00 mm[Hg] [facility] Sep 14:08:42 EDT 2023 Diastolic Blood Pressure 65.00 mm[Hg] [facility] Sep 14:08:42 EDT 2023 Body weight 157.60 [lb_av] [facility] Sep 14:08 :42 EDT 2023 Heart Rate 75.00 /min [facility] Sep 14:08 :42 EDT 2023 Body temperature 98.50 [degF] [facility] Sep 14:0 8:42 EDT 2023 Respiratory rate 18.00 /min [facility] Sep 14:0 8:42 EDT 2023 Pulse Oximetry 95.00 % [facility] 14:08 :42 EDT 2023 Systolic Blood Pressure 101.00 mm[Hg] TueJan 25 12:28:44 EDT 2023 Diastolic Blood Pressure 61.00 mm[Hg] TueJan 25 12:28:44 EDT 2023 Body weight 158.00 [lb_av] TueJan 25 12:28 :44 EDT 2023 Heart Rate 87.00 /min TueJan 25 12:28 :44 EDT 2023 Body temperature 97.50 [degF] TueJan 25 12:2 8:44 EDT 2023 Respiratory rate 18.00 /min TueJan 25 12:2 8:44 EDT 2023 Pulse Oximetry 94.00 % TueJan 25 12:28 :44 EDT 2023 Systolic Blood Pressure 123.00 mm[Hg] TueJan 11 11:01:00 EDT 2023 Diastolic Blood Pressure 68.00 mm[Hg] TueJan 11 11:01:00 EDT 2023 Body weight 159.60 [lb_av] TueJan 11 11:01 :00 EDT 2023 Heart Rate 96.00 /min TueJan 11 11:01 :00 EDT 2023 Body temperature 97.60 [degF] TueJan 11 11:0 1:00 EDT 2023 Respiratory rate 18.00 /min TueJan 11 11:0 1:00 EDT 2023 Pulse Oximetry 98.00 % TueJan 11 11:01 :00 EDT 2023 Systolic Blood Pressure 90.00 mm[Hg] TueDec 25 12:50:19 EDT 2023 Diastolic Blood Pressure 60.00 mm[Hg] TueDec 25 12:50:19 EDT 2023 Body weight 155.00 [lb_av] TueDec 25 12:50 :19 EDT 2023 Heart Rate 85.00 /min TueDec 25 12:50 :19 EDT 2023 Body temperature 98.30 [degF] TueDec 25 12:5 0:19 EDT 2023 Respiratory rate 18.00 /min TueDec 25 12:5 0:19 EDT 2023 Pulse Oximetry 98.00 % TueDec 25 12:50 :19 EDT 2023 Systolic Blood Pressure 127.00 mm[Hg] TueDec 11 10:17:08 EDT 2023 Diastolic Blood Pressure 69.00 mm[Hg] TueDec 11 10:17:08 EDT 2023 Body weight 151.00 [lb_av] TueDec 11 10:17 :08 EDT 2023 Heart Rate 69.00 /min TueDec 11 10:17 :08 EDT 2023 Body temperature 97.60 [degF] TueDec 11 10:1 7:08 EDT 2023 Respiratory rate 18.00 /min TueDec 11 10:1 7:08 EDT 2023 Pulse Oximetry 0.00 % TueDec 11 10:17 :08 EDT 2023 Systolic Blood Pressure 118.00 mm[Hg] TueNov 25 11:43:55 EDT 2023 Diastolic Blood Pressure 63.00 mm[Hg] TueNov 25 11:43:55 EDT 2023 Body weight 150.00 [lb_av] TueNov 25 11:43 :55 EDT 2023 Heart Rate 78.00 /min TueNov 25 11:43 :55 EDT 2023 Body temperature 97.60 [degF] [facility] Nov 25 11:4 3:55 EDT 2023 Respiratory rate 18.00 /min TueNov 25 11:4 3:55 EDT 2023 Pulse Oximetry 96.00 % [facility] Nov 25 11:43 :55 EDT 2023 Systolic Blood Pressure 114.00 mm[Hg] [facility] Nov 11 11:18:57 EDT 2023 Diastolic Blood Pressure 62.00 mm[Hg] [facility] Nov 11 11:18:57 EDT 2023 Body weight 153.00 [lb_av] [facility] Nov 11 11:18 :57 EDT 2023 Heart Rate 73.00 /min [facility] Nov 11 11:18 :57 EDT 2023 Body temperature 97.50 [degF] [facility] Nov 11 11:1 8:57 EDT 2023 Respiratory rate 16.00 /min [facility] Nov 11 11:1 8:57 EDT 2023 Pulse Oximetry 98.00 % [facility] Nov 11 11:18 :57 EDT 2023 Systolic Blood Pressure 130.00 mm[Hg] TueOctober 25 11:09:47 EDT 2023 Diastolic Blood Pressure 59.00 mm[Hg] TueOctober 25 11:09:47 EDT 2023 Body weight 149.80 [lb_av] TueOctober 25 11:09 :47 EDT 2023 Heart Rate 73.00 /min TueOctober 25 11:09 :47 EDT 2023 Body temperature 97.80 [degF] TueOctober 25 11:0 9:47 EDT 2023 Respiratory rate 18.00 /min TueOctober 25 11:0 9:47 EDT 2023 Pulse Oximetry 94.00 % TueOctober 25 11:09 :47 EDT 2023 Systolic Blood Pressure 109.00 mm[Hg] TueOctober 11 11:39:23 EDT 2023 Diastolic Blood Pressure 70.00 mm[Hg] TueOctober 11 11:39:23 EDT 2023 Body weight 140.00 [lb_av] TueOctober 11 11:39 :23 EDT 2023 Heart Rate 78.00 /min TueOctober 11 11:39 :23 EDT 2023 Body temperature 97.20 [degF] TueOctober 11 11:3 9:23 EDT 2023 Respiratory rate 18.00 /min TueOctober 11 11:3 9:23 EDT 2023 Pulse Oximetry 96.00 % TueOctober 11 11:39 :23 EDT 2023 Systolic Blood Pressure 97.00 mm[Hg] TueSep 25 12:44:52 EDT 2023 Diastolic Blood Pressure 59.00 mm[Hg] TueSep 25 12:44:52 EDT 2023 Body weight 152.20 [lb_av] TueSep 25 12:44 :52 EDT 2023 Heart Rate 90.00 /min TueSep 25 12:44 :52 EDT 2023 Body temperature 98.10 [degF] TueSep 25 12:4 4:52 EDT 2023 Respiratory rate 20.00 /min TueSep 25 12:4 4:52 EDT 2023 Pulse Oximetry 96.00 % TueSep 25 12:44 :52 EDT 2023 Systolic Blood Pressure 130.00 mm[Hg] [facility] Sep 21 22:40:00 EDT 2023 Diastolic Blood Pressure 66.00 mm[Hg] [facility] Sep 21 22:40:00 EDT 2023 Heart Rate 83.00 /min TueSep 21 22:40 :00 EDT 2023 Body temperature 98.20 [degF] [facility] Sep 21 22:4 0:00 EDT 2023 Respiratory rate 18.00 /min TueSep 21 22:4 0:00 EDT 2023 Pulse Oximetry 96.00 % TueSep 21 22:40 :00 EDT 2023 Systolic Blood Pressure 126.00 mm[Hg] TueSep 11 09:51:16 EDT 2023 Diastolic Blood Pressure 69.00 mm[Hg] TueSep 11 09:51:16 EDT 2023 Body weight 148.00 [lb_av] TueSep 11 09:51 :16 EDT 2023 Heart Rate 70.00 /min TueSep 11 09:51 :16 EDT 2023 Body temperature 97.60 [degF] TueSep 11 09:5 1:16 EDT 2023 Respiratory rate 18.00 /min TueSep 11 09:5 1:16 EDT 2023 Pulse Oximetry 98.00 % TueSep 11 09:51 :16 EDT 2023 Reason for Referral Past Medical History Resolved Concerns * Problem Dysphagia, unspecified* Code: * Start Date: TueMay 10 00:00:00 EST 2019 * End Date: TueMay 15 00:00:00 EST 2019 * Problem Hypo-osmolality and hyponatremia* Code: * Start Date: TueMay 10 00:00:00 2019 * End Date: TueJun 24 00:00:00 EST 2020 * Problem Major depressive disorder, single episode, unspecified* Code: * Start Date: TueMay 10 00:00:00 2019 * End Date: TueDec 03 00:00:00 EDT 2022 * Problem Unspecified osteoarthritis, unspecified site* Code: * Start Date: TueMay 10 00:00:00 2019 * End Date: TueDec 02 00:00:00 EDT 2022 * Problem Raised antibody titer* Code: * Start Date: TueMay 10 00:00:00 2019 * End Date: TueMay 03 00:00:00 EST 2022 * Problem Unspecified protein-calorie malnutrition* Code: * Start Date: TueMay 10 00:00:00 2019 * End Date: TueMay 18 00:00:00 EST 2022 * Problem Dysphagia, oral phase* Code: * Start Date: TueMay 10 00:00:00 2019 * End Date: TueMay 18 00:00:00 EST 2022 * Problem Abnormal weight loss* Code: * Start Date: TueMay 10 00:00:00 2019 * End Date: TueDec 02 00:00:00 EDT 2022 * Problem Muscle weakness (generalized)* Code: * Start Date: TueJun 02 00:00:00 2019 * End Date: TueApr 10 00:00:00 EDT 2023 * Problem Dysphagia, unspecified* Code: * Start Date: TueJun 02 00:00:00 2019 * End Date: TueMay 18 00:00:00 EST 2022 * Problem Encounter for immunization* Code: * Start Date: TueMar 19 00:00:00 EDT 2020 * End Date: TueDec 02 00:00:00 EDT 2022 * Problem Periapical abscess without sinus* Code: * Start Date: TueJun 23 00:00:00 EST 2020 * End Date: TueDec 02 00:00:00 EDT 2022 * Problem Occlusion and stenosis of left carotid artery* Code: * Start Date: TueMay 10 00:00:00 2019 * End Date: TueApr 10 00:00:00 EDT 2023 * Problem Major depressive disorder, single episode, moderate* Code: * Start Date: TueMay 10 00:00:00 EST 2019 * End Date: TueDec 02 00:00:00 EDT 2022 * Problem 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* Code: * Start Date: TueMay 15 00:00:00 EST 2020 * End Date: TueMay 18 00:00:00 EST 2020 * Problem Abnormal results of liver function studies* Code: * Start Date: TueMay 15 00:00:00 EST 2020 * End Date: TueMay 18 00:00:00 EST 2022 * Problem Cognitive communication deficit* Code: * Start Date: TueMay 18 00:00:00 EST 2020 * End Date: TueDec 02 00:00:00 EDT 2022 * Problem Weakness* Code: * Start Date: TueMay 18 00:00:00 EST 2020 * End Date: TueMay 03 00:00:00 EST 2022 * Problem Apraxia following nontraumatic intracerebral hemorrhage* Code: * Start Date: TueMay 18 00:00:00 EST 2020 * End Date: TueDec 02 00:00:00 EDT 2022 * Problem Acute candidiasis of vulva and vagina* Code: * Start Date: TueMar 13 00:00:00 EDT 2021 * End Date: TueDec 02 00:00:00 EDT 2022 * Problem Candidiasis of skin and nail* Code: * Start Date: TueMay 15 00:00:00 EST 2020 * End Date: TueDec 02 00:00:00 EDT 2022 * Problem Pain in right knee* Code: * Start Date: TueMay 15 00:00:00 EST 2020 * End Date: TueDec 02 00:00:00 EDT 2022 * Problem Pain in left knee* Code: * Start Date: TueMay 15 00:00:00 EST 2020 * End Date: TueDec 02 00:00:00 EDT 2022 * Problem Sprain of medial collateral ligament of right knee, subsequent encounter* Code: * Start Date: TueSep 22 00:00:00 EDT 2022 * End Date: TueMay 03 00:00:00 EST 2022 * Problem Gastrointestinal hemorrhage, unspecified* Code: * Start Date: TueDec 01 00:00:00 EDT 2022 * End Date: TueJun 29 00:00:00 EST 2023 * Problem Hyperkalemia* Code: * Start Date: TueDec 01 00:00:00 EDT 2022 * End Date: TueApr 10 00:00:00 EDT 2023 * Problem Unsteadiness on feet* Code: * Start Date: TueDec 01 00:00:00 EDT 2022 * End Date: TueMay 03 00:00:00 EST 2022 * Problem Diarrhea, unspecified* Code: * Start Date: TueDec 01 00:00:00 EDT 2022 * End Date: TueMay 03 00:00:00 EST 2022 * Problem Pain in right hand* Code: * Start Date: TueDec 01 00:00:00 EDT 2022 * End Date: TueMay 18 00:00:00 EST 2022 * Problem Dysuria* Code: * Start Date: TueDec 01 00:00:00 EDT 2022 * End Date: TueApr 10 00:00:00 EDT 2023 * Problem Pain in leg, unspecified* Code: * Start Date: TueDec 01 00:00:00 EDT 2022 * End Date: TueMay 03 00:00:00 EST 2022 * Problem Pain, unspecified* Code: * Start Date: TueDec 01 00:00:00 EDT 2022 * End Date: TueApr 10 00:00:00 EDT 2023 * Problem Localized edema* Code: * Start Date: TueDec 01 00:00:00 EDT 2022 * End Date: TueApr 10 00:00:00 EDT 2023 * Problem Other specified postprocedural states* Code: * Start Date: TueDec 01 00:00:00 EDT 2022 * End Date: TueApr 10 00:00:00 EDT 2023 * Problem Hypokalemia* Code: * Start Date: TueDec 01 00:00:00 EDT 2022 * End Date: TueApr 10 00:00:00 EDT 2023 * Problem Abnormal levels of other serum enzymes* Code: * Start Date: TueDec 14 00:00:00 EDT 2022 * End Date: TueMay 03 00:00:00 EST 2022 * Problem Abnormal weight loss* Code: * Start Date: TueDec 14 00:00:00 EDT 2022 * End Date: TueApr 10 00:00:00 EDT 2023 * Problem Noninfective gastroenteritis and colitis, unspecified* Code: * Start Date: TueDec 14 00:00:00 EDT 2022 * End Date: TueApr 10 00:00:00 EDT 2023 * Problem Unspecified lack of coordination* Code: * Start Date: TueDec 17 00:00:00 EDT 2022 * End Date: TueApr 10 00:00:00 EDT 2023 * Problem Pneumonia, unspecified organism* Code: * Start Date: TueFeb 25 00:00:00 EDT 2022 * End Date: TueMay 03 00:00:00 EST 2022 * Problem Postmenopausal bleeding* Code: * Start Date: TueMar 21 00:00:00 EDT 2022 * End Date: TueAug 28 00:00:00 EDT 2023 * Problem Urinary tract infection, site not specified* Code: * Start Date: TueMar 25 00:00:00 EDT 2022 * End Date: TueMay 03 00:00:00 EST 2022 * Problem Unspecified Escherichia coli [E. coli] as the cause of diseases classified elsewhere* Code: * Start Date: TueMar 25 00:00:00 EDT 2022 * End Date: TueMay 03 00:00:00 EST 2022 * Problem Unspecified fall, subsequent encounter* Code: * Start Date: TueApr 28 00:00:00 EST 2022 * End Date: TueApr 10 00:00:00 EDT 2023 * Problem Contusion of scalp, subsequent encounter* Code: * Start Date: TueApr 28 00:00:00 EST 2022 * End Date: TueApr 10 00:00:00 EDT 2023 * Problem Abrasion of right back wall of thorax, subsequent encounter* Code: * Start Date: TueApr 28 00:00:00 EST 2022 * End Date: TueApr 10 00:00:00 EDT 2023 * Problem Other constipation* Code: * Start Date: TueMay 09 00:00:00 EST 2022 * End Date: TueApr 10 00:00:00 EDT 2023 * Problem Fecal impaction* Code: * Start Date: TueMay 16 00:00:00 EST 2023 * End Date: TueJun 29 00:00:00 EST 2023 * Problem Unspecified lump in the right breast, upper outer quadrant* Code: * Start Date: TueMay 16 00:00:00 EST 2022 * End Date: TueApr 10 00:00:00 EDT 2023 * Problem Raised antibody titer* Code: * Start Date: TueMay 16 00:00:00 EST 2022 * End Date: TueApr 10 00:00:00 EDT 2023 * Problem Localized swelling, mass and lump, unspecified* Code: * Start Date: TueMay 17 00:00:00 EST 2022 * End Date: TueJun 29 00:00:00 EST 2023 * Problem Cerebral infarction, unspecified* Code: * Start Date: TueApr 01 00:00:00 EDT 2022 * End Date: TueApr 10 00:00:00 EDT 2023
--- OUTSIDE RECORDS SUMMARY | 2024-09-10 20:19 | XMS_ITS | Continuity of Care Document ---
Author Name Auto Generated, Auto Generated Organization [facility] Support Name Relationship Address Phone Jo DaviessDelmar kelly Emergency Contact [address] [place] [address] Jo DaviessDelmar kelly Son [address] [place] [address] Delmar Francois [employer] Financial [address] [place] [address] AlessandroAnia Moya Daughter Unknown Unavailable Maria G Francoisan Self [address] [facility] [address] [place] [address] Delmar Francois Financial Responsibl e [employer] [address] [place] [address] Delmar Francois Statement Copy [address] [place] [address] Willa-AlessandroAnia kelly Qjxctoyt-ih-Hja [address] [place] [address] BethAnia Emergency Contact [address] [place] [address] Ania Munoz Emergency Contact 3 Unknown Unavailable Summary Purpose Consult/Referral Allergies, Adverse Reactions, Alerts Type Description/Agent Code Date Allergy Active Date Allergy Inactivated Date of Last Reaction Adverse Reactions Severity Status Comments Source of Information FDB Medic ation Ingre dient codeine Active Patient History FDB Speci fic Aller gen Group Sulfa (Sulfonamide Antibiotics) Active Pat ient History FDB Medic ation Ingre dient sunflower seed Active Pa tient History Medications No Known Medications Conditions/Problems Problem/Diagnosis Awareness of Diagnosis Code (ICD-10) Onset Date (Start Date) Resolution Date (End Date) Status Source Comments PAIN IN RIGHT FOOT M79.671 08/09/19 25 Active MD Fabio Bundy UNSPECIFIED FALL, SUBSEQUENT ENCOUNTER W19.XXXD 08/09/19 25 Active MD Fabio Bundy CEREBRAL INFARCTION, UNSPECIFIED I63.9 10/10/19 24 04/10/2024 Resolved MD Fabio Bundy WEAKNESS R53.1 10/10/19 24 04/10/2024 Resolved MD Fabio Bundy MUSCLE WEAKNESS (GENERALIZED) M62.81 10/10/19 24 04/10/2024 Resolved MD Fabio Bundy LOCALIZED SWELLING, MASS AND LUMP, UNSPECIFIED R22.9 05/17/20 23 06/29/2023 Resolved MD Fabio Bundy RAISED ANTIBODY TITER R76.0 05/16/20 23 04/10/2024 Resolved MD Fabio Bundy FECAL IMPACTION K56.41 05/12/20 23 06/29/2023 Resolved MD Fabio Bundy OTHER CONSTIPATION K59.09 05/09/20 23 04/10/2024 Resolved MD Fabio Bundy UNSPECIFIED FALL, SUBSEQUENT ENCOUNTER W19.XXXD 04/28/20 23 04/10/2024 Resolved MD Fabio Bundy CONTUSION OF SCALP, SUBSEQUENT ENCOUNTER S00.03XD 04/28/20 23 04/10/2024 Resolved MD Fabio Bundy ABRASION OF RIGHT BACK WALL OF THORAX, SUBSEQUENT ENCOUNTER S20.411D 04/28/20 23 04/10/2024 Resolved MD Fabio Bundy OTHER FATIGUE R53.83 04/01/20 Active MD Fabio Bundy URINARY TRACT INFECTION, SITE NOT SPECIFIED N39.0 03/25/20 23 05/03/2023 Resolved MD Fabio Bundy UNSPECIFIED ESCHERICHIA COLI [E. COLI] THE CAUSE OF DISEASES CLASSIFIED ELSEWHERE B96.20 03/25/20 23 05/03/2023 Resolved MD Fabio Bundy UNSPECIFIED LUMP IN THE RIGHT BREAST, UPPER OUTER QUADRANT N63.11 03/21/20 23 04/10/2024 Resolved MD Fabio Bundy UNSPECIFIED LUMP IN THE RIGHT BREAST, UNSPECIFIED QUADRANT N63.10 03/21/20 23 Active MD Fabio Bundy POSTMENOPAUSAL BLEEDING N95.0 03/21/20 23 08/29/2023 Resolved MD Fabio Bundy PNEUMONIA, UNSPECIFIED ORGANISM J18.9 02/26/20 23 05/03/2023 Resolved MD Fabio Bundy NONINFECTIVE GASTROENTERITIS AND COLITIS, UNSPECIFIED K52.9 12/18/19 23 04/10/2024 Resolved MD Fabio Bundy UNSPECIFIED LACK OF COORDINATION R27.9 12/18/19 23 04/10/2024 Resolved MD Fabio Bundy ANEMIA, UNSPECIFIED D64.9 12/18/19 Active MD Fabio Bundy ABNORMAL LEVELS OF OTHER SERUM ENZYMES R74.8 12/15/19 23 05/03/2023 Resolved MD Fabio Bundy ABNORMAL WEIGHT LOSS R63.4 12/15/19 23 04/10/2024 Resolved MD Fabio Bundy PAIN IN LEG, UNSPECIFIED M79.606 12/07/19 23 05/03/2023 Resolved MD Fabio Bundy PAIN, UNSPECIFIED R52 12/07/19 23 04/10/2024 Resolved MD Fabio Bundy LOCALIZED EDEMA R60.0 12/07/1904/10/2024 Resolved MD Fabio Bundy OTHER SPECIFIED POSTPROCEDURAL STATES Z98.890 12/07/19 23 04/10/2024 Resolved MD Fabio Bundy HYPOKALEMIA E87.6 12/04/19 23 04/10/2024 Resolved MD Fabio Bundy DYSURIA R30.0 12/04/19 23 04/10/2024 Resolved MD Fabio Bundy UNSTEADINESS ON FEET R26.81 12/02/19 23 05/03/2023 Resolved MD Fabio Bundy HYPO-OSMOLALITY AND HYPONATREMIA E87.1 12/02/19 Active MD Fabio Bundy PAIN IN RIGHT HAND M79.641 12/02/19 23 05/18/2023 Resolved MD Fabio Bundy DIAPHRAGMATIC HERNIA WITHOUT OBSTRUCTION OR GANGRENE K44.9 12/02/19 Active MD Fabio Bundy GASTRO-ESOPHAGEAL REFLUX DISEASE WITHOUT ESOPHAGITIS K21.9 12/02/19 23 Active MD Fabio Bundy GASTRIC ULCER, UNSPECIFIED ACUTE OR CHRONIC, WITHOUT HEMORRHAGE OR PERFORATION K25.9 11/27/19 23 Active MD Fabio Bundy GASTROINTESTINAL HEMORRHAGE, UNSPECIFIED K92.2 11/27/19 23 06/29/2023 Resolved MD Fabio Bundy HYPERKALEMIA E87.5 11/27/19 23 04/10/2024 Resolved MD Fabio Bundy DIARRHEA, UNSPECIFIED R19.7 11/27/19 23 05/03/2023 Resolved MD Fabio Bundy PERSONAL HISTORY OF OTHER DISEASES OF THE DIGESTIVE SYSTEM Z87.19 11/27/19 Active MD Fabio Bundy K92.2K56. 41 SPRAIN OF MEDIAL COLLATERAL LIGAMENT OF RIGHT KNEE, SUBSEQUENT ENCOUNTER S83.411D 09/23/19 23 05/03/2023 Resolved MD Fabio Bundy PAIN IN RIGHT KNEE M25.561 09/17/19 23 12/02/2022 Resolved MD Fabio Bundy ACUTE CANDIDIASIS OF VULVA AND VAGINA B37.31 08/26/19 23 12/02/2022 Resolved MD Fabio Bundy CANDIDIASIS OF SKIN AND NAIL B37.2 08/26/19 23 12/02/2022 Resolved MD Fabio Bundy WEAKNESS R53.1 02/19/20 22 05/03/2023 Resolved MD Fabio Bundy APRAXIA FOLLOWING NONTRAUMATIC INTRACEREBRAL HEMORRHAGE I69.190 09/09/19 22 12/02/2022 Resolved MD Fabio Bundy COGNITIVE COMMUNICATION DEFICIT R41.841 05/20/20 21 12/02/2022 Resolved MD Fabio Bundy PRIMARY GENERALIZED (OSTEO)ARTHRITIS M15.0 05/15/20 Active MD Fabio Bundy PAIN IN LEFT KNEE M25.562 05/15/20 21 12/02/2022 Resolved MD Fabio Bundy ALF (CURRENT) USE OF ANTICOAGULANTS Z79.01 05/15/20 21 05/18/2021 Resolved MD Fabio Bundy MAJOR DEPRESSIVE DISORDER, RECURRENT, MODERATE F33.1 05/15/20 21 Active MD Fabio Bundy SLOW TRANSIT CONSTIPATION K59.01 05/15/20 21 Active MD Fabio Bundy ABNORMAL RESULTS OF LIVER FUNCTION STUDIES R94.5 04/23/20 21 05/18/2023 Resolved MD Fabio Bundy ENCOUNTER FOR IMMUNIZATION Z23 03/19/20 21 12/02/2022 Resolved MD Fabio Bundy PERIAPICAL ABSCESS WITHOUT SINUS K04.7 06/23/19 21 12/02/2022 Resolved MD Fabio Bundy MAJOR DEPRESSIVE DISORDER, SINGLE EPISODE, MODERATE F32.1 06/23/19 21 12/02/2022 Resolved MD Fabio Bundy DYSPHAGIA, UNSPECIFIED R13.10 06/02/20 20 05/18/2023 Resolved MD Fabio Bundy ABNORMAL WEIGHT LOSS R63.4 05/27/20 20 12/02/2022 Resolved MD Fabio Bundy UNSPECIFIED PROTEIN-CALORIE MALNUTRITION E46 05/15/20 20 05/18/2023 Resolved MD Fabio Bundy DYSPHAGIA, ORAL PHASE R13.11 05/10/20 20 05/18/2023 Resolved MD Fabio Bundy UNSPECIFIED URINARY INCONTINENCE R32 05/10/20 20 Active MD Fabio Bundy ESSENTIAL (PRIMARY) HYPERTENSION I10 05/10/20 20 Active MD Fabio Bundy OCCLUSION AND STENOSIS OF LEFT CAROTID ARTERY I65.22 05/10/20 20 04/10/2024 Resolved MD Fabio Bundy MIXED HYPERLIPIDEMIA E78.2 05/10/20 20 Active MD Fabio Bundy HYPO-OSMOLALITY AND HYPONATREMIA E87.1 05/10/20 20 06/24/2020 Resolved MD Fabio Bundy 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 (CURRENT) USE OF ANTITHROMBOTICS/ANT IPLATELETS Z79.02 05/10/20 20 Active MD Fabio Bundy MAJOR DEPRESSIVE DISORDER, SINGLE EPISODE, UNSPECIFIED F32.9 05/10/20 20 12/03/2022 Resolved MD Fabio Bundy MIXED INCONTINENCE N39.46 05/10/20 20 Active MD Fabio Bundy OVERACTIVE BLADDER N32.81 05/10/20 20 Active MD Fabio Bundy FULL INCONTINENCE OF FECES R15.9 05/10/20 20 Active MD Fabio Bundy UNSPECIFIED OSTEOARTHRITIS, UNSPECIFIED SITE M19.90 05/10/20 20 12/02/2022 Resolved MD Fabio Bundy SCOLIOSIS, UNSPECIFIED M41.9 05/10/20 20 Active MD Fabio Bundy VITAMIN D DEFICIENCY, UNSPECIFIED E55.9 05/10/20 20 Active MD Fabio Bundy PSORIASIS, UNSPECIFIED L40.9 05/10/20 20 Active MD Fabio Bundy 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 05/10/20 Active MD Fabio Bundy ALF (CURRENT) USE OF ASPIRIN Z79.82 05/10/20 20 Active MD Fabio Bundy 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 05/10/20 20 Active MD Fabio Bundy RAISED ANTIBODY TITER R76.0 05/10/20 20 05/03/2023 Resolved MD Fabio Bundy OTHER SPECIFIED DISORDERS OF BLADDER N32.89 05/10/20 20 Active MD Fabio Bundy OTHER SEQUELAE OF CEREBRAL INFARCTION I69.398 02/12/20 20 Active MD Fabio Bundy PAIN IN RIGHT UPPER ARM M79.621 02/12/20 20 Active MD Fabio Bundy HEMIPLEGIA AND HEMIPARESIS FOLLOWING CEREBRAL INFARCTION AFFECTING RIGHT DOMINANT SIDE I69.351 02/12/20 20 Active MD Fabio Bundy APHASIA FOLLOWING CEREBRAL INFARCTION I69.320 02/12/20 20 Active MD Fabio Bundy APRAXIA FOLLOWING CEREBRAL INFARCTION I69.390 02/12/20 20 Active MD Fabio Bundy DYSPHAGIA FOLLOWING CEREBRAL INFARCTION I69.391 02/12/20 20 Active MD Fabio Bundy DYSPHAGIA, UNSPECIFIED R13.10 02/12/20 20 05/15/2020 Resolved MD Fabio Bundy DYSPHAGIA, OROPHARYNGEAL PHASE R13.12 02/12/20 20 Active MD Fabio Bundy Procedures No Known Procedures
--- NOTE | 2024-09-10 21:38 | ED_ITS ---
HPI - Head Injury General Chief complaint: Head Injury Stated complaint: fall, head injury Time Seen by Provider: 09/10/24 19:58 Source: patient, family and EMS Mode of arrival: EMS Limitations: other (history of CVA with expressive aphasia) History of Present Illness HPI Narrative: This is an 83-year-old female that presents to the emergency department for a fall today with head injury. Patient with contusion behind the right ear. Takes clopidogrel and aspirin. No other focal complaints. Related Data Home Medications ?Medication ?Instructions ?Recorded ?Confirmed ?Last Taken ?Type acetaminophen 325 mg tablet 650 mg PO ONCE PRN Pain 10/01/21 08/22/23 Unknown History aspirin 81 mg tablet,delayed 81 mg PO DAILY 10/01/21 08/22/23 Unknown History release atorvastatin 20 mg tablet 20 mg PO DAILY 10/01/21 08/22/23 Unknown History clopidogrel 75 mg tablet 75 mg PO DAILY 10/01/21 08/22/23 Unknown History duloxetine 20 mg capsule,delayed 20 mg PO BID 10/01/21 08/22/23 Unknown History release lisinopril 10 mg tablet 10 mg PO DAILY 10/01/21 08/22/23 Unknown History mirtazapine 15 mg tablet 15 mg PO DAILY 10/01/21 08/22/23 Unknown History mqlhzorv-huoh-etmp 8 mg-folic 400 1 tablet PO DAILY 10/01/21 08/22/23 Unknown History mcg-K 50 mcg-lutein 300 mcg tablet (Centrum Silver Women) oxybutynin chloride 5 mg tablet 5 mg PO BID 10/01/21 08/22/23 Unknown History sodium chloride 1 gram tablet 1,000 mg PO BID 10/01/21 08/22/23 Unknown History cholecalciferol (vitamin D3) 50 50 mcg PO DAILY 11/26/22 08/22/23 Unknown History mcg (2,000 unit) capsule epinephrine 0.3 mg/0.3 mL 0.3 mg IM ONCE 11/26/22 08/22/23 Unknown History injection, auto-injector dicyclomine 10 mg capsule 10 mg PO QID 08/22/23 08/22/23 Unknown History lidocaine 4 % topical patch 1 patch topical BID PRN Pain 08/22/23 08/22/23 Unknown History (Lidocaine Pain Relief) loperamide 2 mg capsule 2 mg DAILY PRN Diarrhea 08/22/23 08/22/23 Unknown History sennosides 8.6 mg tablet (senna) 8.6 mg PO DAILY PRN Constipation 08/22/23 08/22/23 Unknown History sodium chloride 0.65 % nasal spray 2 spray intranasal Q4H PRN 08/22/23 08/22/23 Unknown History aerosol (Deep Sea Nasal) Congestion Allergies Allergy/AdvReac Type Severity Reaction Status Date / Time sunflower seed Allergy Unknown Unknown Verified 09/10/24 19:38 codeine Allergy Other-REACTON Verified 09/10/24 19:38 NOT DOCUMENTED ON [facility] DOCUMENTS Sulfa (Sulfonamide Allergy Other-REACTON Verified 09/10/24 19:38 Antibiotics) NOT DOCUMENTED ON NH DOCUMENTS Review of Systems Review of Systems: ROS unobtainable: Yes unobtainable due to medical condition PMFSH Past Medical History Medical History (normal spontaneous vaginal delivery) term x2 Chronic anemia Carotid artery disease Depression Expressive aphasia Osteoarthritis HTN (hypertension) Hyperlipidemia History of CVA (cerebrovascular accident) Right side effect GI bleed Surgical History Surgical History History of bilateral knee replacement H/O cataract extraction H/O: hysterectomy Family History Family History Unknown No problems noted. Social History Social History Social History: The patient is she resides at [employer]. She has 2 children. 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 Her son otilio is her durable power commonwealth attorney for healthcare. Code status DNR Smoking status: Unknown if ever smoked Alcohol intake: never Substance use: never Substance use type: does not use Lack of Transportation: No Lack of Food: Never True Current Housing: I Have Housing Concerned About Future Housing: No Difficulty Paying Gas/Electric Bills: No Difficulty Paying for Meds: No Currently Unemployed: No Education: Don't Know Difficulty w/ Childcare or Family Care: No Living arrangements: assisted living Additional living arrangements comments: [facility] PHONE [phone] Spiritual care concerns: No Exam Narrative: GENERAL: Well-appearing, well-nourished, and in no acute distress. HEAD: Normocephalic. Contusion with overlying superficial abrasion behind the right ear EYES: PERRLA and EOMI. ENT: Nares clear, no rhinorrhea or epistaxis. Mucous membranes moist. Oropharynx without tonsillar hypertrophy exudate or other lesions. Bilateral TMs pearly andrade non-bulging NECK: Supple. No adenopathy or masses. CHEST: Clear to auscultation. No respiratory distress. No wheezes rales or rhonchi HEART: Regular rate and rhythm. No murmur heard. Normal peripheral pulses. ABDOMEN: Soft, nontender, nondistended, normal active bowel sounds. EXTREMITIES: Right arm contracture. No edema. SKIN: Warm, dry, no rash. NEURO: Right sided weakness from previous CVA. Alert and oriented x1. PSYCH: Normal mood and affect Course Course Emergency Course: Patient and family updated on workup and agree with plan of care Vital Signs Vital signs: Vital Signs Temperature 97 F L 09/10/24 19:33 Pulse Rate 78 09/10/24 19:33 Respiratory Rate 14 09/10/24 19:33 Blood Pressure 133/61 09/10/24 19:33 Pulse Oximetry 98 09/10/24 19:33 Oxygen Delivery Room Air 09/10/24 19:33 Temperature 98.3 F 09/10/24 22:01 Pulse Rate 77 09/10/24 22:01 Respiratory Rate 20 09/10/24 22:01 Blood Pressure 141/83 H 09/10/24 22:01 Pulse Oximetry 100 09/10/24 22:01 Oxygen Delivery Room Air 09/10/24 19:33 MDM - Head Injury MDM Narrative Medical decision making narrative: Patient presents to the emergency department after an unwitnessed ground level fall at her facility. Patient is alert and oriented at her baseline. History of right-sided weakness due to previous stroke as well as expressive aphasia. Her vitals are stable. CT brain and cervical spine without acute findings. Chest x-ray shows large hiatal hernia. Pelvic x-ray shows possible abnormality of the right femur. CT pelvis obtained. No acute fracture. Patient family updated on workup. Contusion to the right posterior scalp had a an overlying superficial abrasion. This was cleansed. Patient updated on tetanus. She is to follow up with primary provider. They were given warnings to return to the ER Differential Diagnosis Differential diagnosis: Likely concussion without loss of consciousness, closed head injury and subdural hematoma Imaging Data Radiologist's impression: ITS Impressions Chest X-Ray 09/10/24 20:21 IMPRESSION: Limited examination of the chest demonstrates prominence of the right hilum and superior mediastinum likely secondary to patient rotation and supine positioning. Large hiatal hernia persists. Head CT 09/10/24 20:23 Impression: No acute intracranial hemorrhage or suspicious mass effect. Cervical Spine CT 09/10/24 20:32 Impression: Straightening and slight reversal of the normal curvature of the cervical spine, likely muscular in origin. Degenerative disease, without acute fracture. Hip/Pelvis X-Ray 09/10/24 20:38 IMPRESSION: Abnormal orientation of the right femur, possibly secondary to positioning. Repeat examination with appropriate positioning is recommended, if the patient is clinically able. No acute displaced fracture is appreciated. Hip/Pelvis X-Ray 09/10/24 21:55 IMPRESSION: Acute fracture of the right femoral neck with overlap of the femoral head, as detailed above. Pelvis CT 09/10/24 22:44 IMPRESSION: No acute or subacute fracture is identified within the right hip, as detailed above. Critical Care Time Critical Care Time Critical Care Time: No Discharge Plan Discharge Clinical Impression: Fall, Head injury Patient Disposition: NH Correction/Asst Living Condition: Stable Instructions: Head Injury (ED), Contusion in Adults (ED) Additional Instructions: Return to the emergency department if you experience fever, chest pain, shortness of breath, abdominal pain with nausea and vomiting, weakness, numbness, or any other symptoms that are concerning to you. Rest. Ice to the area. Over the counter pain medication as needed Follow up with primary care doctor Patient Language: Bolivian Prescriptions: No Action acetaminophen 325 mg Tablet 650 mg PO ONCE PRN (Reason: Pain) atorvastatin 20 mg Tablet 20 mg PO DAILY sodium chloride 1 gram Tablet 1,000 mg PO BID clopidogrel 75 mg Tablet 75 mg PO DAILY aspirin 81 mg Tablet,Delayed Release (Dr/Ec) 81 mg PO DAILY lisinopril 10 mg Tablet 10 mg PO DAILY mirtazapine 15 mg Tablet 15 mg PO DAILY oxybutynin chloride 5 mg Tablet 5 mg PO BID duloxetine 20 mg Capsule,Delayed Release(Dr/Ec) 20 mg PO BID Centrum Silver Women 8 mg iron-400 mcg-300 mcg Tablet 1 tablet PO DAILY epinephrine 0.3 mg/0.3 mL Auto-Injector 0.3 mg IM ONCE Rx Instructions: as a single dose; may repeat once cholecalciferol (vitamin D3) 50 mcg (2,000 unit) Capsule 50 mcg PO DAILY pantoprazole 40 mg Tablet,Delayed Release (Dr/Ec) 40 mg PO Q12HR Qty: 60 0RF docusate sodium 100 mg Capsule 100 mg PO Q12HR Qty: 30 0RF polyethylene glycol 3350 [Miralax] 17 gram Powder In Packet 17 g PO QAM Qty: 30 0RF sennosides [senna] 8.6 mg Tablet 8.6 mg PO DAILY PRN (Reason: Constipation) lidocaine [Lidocaine Pain Relief] 4 % Adhesive Patch,Medicated 1 patch TOPICAL BID PRN (Reason: Pain) loperamide 2 mg Capsule 2 mg DAILY PRN (Reason: Diarrhea) dicyclomine 10 mg Capsule 10 mg PO QID Deep Sea Nasal 0.65 % Aerosol,[place] 2 spray INTRANASAL Q4H PRN (Reason: Congestion) Follow-up/Referrals: Fabio Bundy MD [Primary Care Provider] - Stand Alone Forms: Halfway Discharge
[2024-09-10] MEDS: TETANUS,DIPHTHERIA,AC PERTUSSIS ADULT (0.5 ML) BOOSTRIX IM (21:56)
[2024-09-10 22:01] VITALS: BP 141/83; PULSE 77; RESP 20; TEMP 36.8; O2SAT 100
== END 2024-09-10 23:52 ==
PROVIDERS: Emergency Provider Physician Assistant; PCP Family Medicine
DX: S00.93XA Contusion of unspecified part of head, initial encounter (principal); Z23 Encounter for immunization; I25.10 Atherosclerotic heart disease of native coronary artery without angina pectoris; I10 Essential (primary) hypertension; E78.5 Hyperlipidemia, unspecified; D64.9 Anemia, unspecified; M81.0 Age-related osteoporosis without current pathological fracture; Z66 Do not resuscitate; Z96.653 Presence of artificial knee joint, bilateral; Z98.49 Cataract extraction status, unspecified eye; Z90.710 Acquired absence of both cervix and uterus; Z79.02 Long term (current) use of antithrombotics/antiplatelets; Z79.82 Long term (current) use of aspirin; K44.9 Diaphragmatic hernia without obstruction or gangrene; M50.30 Other cervical disc degeneration, unspecified cervical region; W18.30XA Fall on same level, unspecified, initial encounter; Z79.899 Other long term (current) drug therapy
CPT/HCPCS: 70450; 71045; 72125; 72192; 73502; 90471; 90715; 99284